=== PATIENT | male | born 1935 | race Caucasian/White ===

== ENCOUNTER 2016-05-07 10:46 | Outpatient (CLI) | payer MEDICARE | END 2016-05-07 10:47 | disposition home or self-care (01) | DX: L03.90 Cellulitis, unspecified (principal) ==

== ENCOUNTER 2016-08-16 10:53 | Outpatient (CLI) | payer MEDICARE | END 2016-08-16 10:54 | disposition home or self-care (01) | DX: N40.1 Benign prostatic hyperplasia with lower urinary tract symptoms (principal); L03.90 Cellulitis, unspecified; B74.9 Filariasis, unspecified; E78.5 Hyperlipidemia, unspecified; R73.01 Impaired fasting glucose; F10.20 Alcohol dependence, uncomplicated; J32.9 Chronic sinusitis, unspecified; G47.30 Sleep apnea, unspecified; I10 Essential (primary) hypertension ==

== ENCOUNTER 2016-11-18 23:19 | Outpatient (CLI) | payer MEDICARE | END 2016-11-18 23:20 | disposition short-term general hospital (02) | LOC: EMS 23:19 | PROVIDERS: ATTEND Surgery | DX: M79.89 Other specified soft tissue disorders (principal) | CPT/HCPCS: A0425; A0429 ==

== ENCOUNTER 2016-11-18 23:50 | Emergency (ER) | payer MEDICARE ==
--- NOTE | 2016-11-18 23:57 | ED Physician Documentation ---
PD HPI LOWER EXT INJURY - Stated complaint Stated Complaint: LOWER EXT SWELLING - Chief complaint Chief Complaint: Ext Problem - History obtained from History obtained from: Patient, Family, EMS - History of Present Illness PD HPI LOW EXT INJURY LOCATION: Both (has swelling of both legs, he says for the past several months as new process, with thickening of the skin of lower legs for the past couple of years. Has had increased swelling of the left leg the past week. he had been doing better with the edema with use of lymphatic compression machine a few hours daily, but his part-time aide has not been available the past couple of weeks.) Type of injury: Other (no injury per se, just has had increasing edema of legs, left particularly.) Where injury occurred: Home Timing - duration: Weeks Timing - details: Gradual onset, Still present Worsened by: Palpating Associated symptoms: Swelling (having difficulty walking due to the weight of his leg.). 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 Dahl about it and has lymphatic compression device at home to use 2-3 hours daily. Patient says he is getting referral to some specialist here at [facility], but he does not know whom (I wonder if is Wound Care clinic at [facility]).) Review of Systems Constitutional: denies: Fever, Chills Nose: denies: Rhinorrhea / runny nose, Congestion Throat: denies: Sore throat Cardiac: denies: Chest pain / pressure, Palpitations Respiratory: reports: Dyspnea (mild chronic). denies: Cough, Wheezing GI: denies: Nausea, Vomiting, Diarrhea : denies: Dysuria, Frequency Skin: reports: Lesions (couple years of thickened rough skin on lower legs/ ankles.) Neurologic: denies: Focal weakness, Numbness PD PAST MEDICAL HISTORY - Past Medical History Cardiovascular: Hypertension, High cholesterol Respiratory: None Neuro: None Endocrine/Autoimmune: None - Past Surgical History Past Surgical History: Yes - Present Medications Home Medications: Ambulatory Orders Medication Instructions Recorded Confirmed Aspirin [Aspir 81] 81 mg PO DAILY 11/22/13 04/03/14 Atorvastatin Calcium 80 mg PO DAILY 11/22/13 04/03/14 Ibuprofen 400 mg PO DAILY PRN 11/22/13 04/03/14 Lisinopril 40 mg PO DAILY 11/22/13 04/03/14 Tamsulosin HCl [Flomax] 0.4 mg PO DAILY 11/22/13 04/03/14 Cephalexin [Keflex] 500 mg PO QID #24 capsule 11/19/16 - Allergies Allergies/Adverse Reactions: Allergies Allergy/AdvReac Type Severity Reaction Status Date / Time No Known Drug Allergies Allergy Verified 11/22/13 09:11 - Living Situation Living Situation: reports: With family (he says granddaughter is nearby and has home school teacher for few hours daily, though the aide has been absent the past couple of weeks. ) Living Arrangement: reports: At home - Social History Does the pt smoke?: No Smoking Status: Never smoker Does the pt drink ETOH?: Yes - Immunizations Immunizations are current?: Yes PD ED PE NORMAL - Vitals Vital signs reviewed: Yes - General General: Alert and oriented X 3, Well developed/nourished - Neck Neck: Supple, no meningeal sign, No adenopathy - Cardiac Cardiac: RRR, No murmur - Respiratory Respiratory: Clear bilaterally - Abdomen Abdomen: Soft, Non tender - Derm Derm: Warm and dry, Other (thickened skin both legs below knees. The upper legs/ thighs are fairly normal caliber. Legs below knees have marked edema, left much more. It is pitting. Some redness of the skin anteriorly, but not really warm. ) - Extremities Extremities: No calf tenderness / cord, Other (pretty normal legs above the knees. Marked lymphedema and chronic skin thickening below knees, with left leg markedly edematous about 4 times normal (right about 2 times normal).) - Neuro Neuro: Alert and oriented X 3, No motor deficit, Normal speech Results - Vitals Vitals: Vital Signs - 24 hr 11/18/16 11/19/16 23:52 04:27 Temperature 36.6 C Heart Rate 90 83 Respiratory 18 18 Rate Blood Pressure 122/51 L 122/59 L O2 Saturation 98 99 Oxygen O2 Source Room air - Labs Labs: Laboratory Tests 11/19/16 11/19/16 11/19/16 01:08 01:08 01:08 WBC 15.9 H RBC 4.42 L Hgb 13.9 L Hct 41.2 L MCV 93.1 MCH 31.3 H MCHC 33.7 RDW 13.7 Plt Count 128 L MPV 8.6 Neut # 13.8 H Lymph # 1.1 L Calhoun # 1.0 Eos # 0.0 Baso # 0.0 Absolute Nucleated RBC 0.00 Nucleated RBCs 0.0 Sodium 134 L Potassium 4.0 Chloride 100 L Carbon Dioxide 24 Anion Gap 10.0 BUN 21 H Creatinine 1.0 Estimated GFR (MDRD) 72 L Glucose 143 H Calcium 9.0 Magnesium 1.8 Total Bilirubin 1.3 H AST 61 H ALT 49 Alkaline Phosphatase 50 B-Natriuretic Peptide 299 H Total Protein 7.2 Albumin 3.8 Globulin 3.4 Albumin/Globulin Ratio 1.1 Lipase 12 L - Rads (name of study) duplex U/S Radiology: Prelim report reviewed (no DVT) PD MEDICAL DECISION MAKING - ED course Complexity details: considered differential (lymphedema both legs, and consider some cellulitis left leg vs. inflammatory. Can use some skin lotion and would Rx Keflex for potential cellulitis. Mostly need some lymphatic compression. He had home school teacher who is not there to help recently. Lives with granddaughter, who might be able to help. Otherwise I would consider longer term wraps such as Unna Boot or something [facility] might do. He is okay with resting through the rest of the night (it was now about 2:30 am) and having consult with WC Nurse in AM, some wrappings. Then dispo is issue with him having harder time walking due to the large weight of left leg currently. SW may be able to help with other aides or such. ), d/w patient, d/w performance improvement consultant (will see if Nurses are able to do some lymphatic wrap (or can have ED Techs) with benefit of trying to initiate repeat visits to [facility] (would need to get Dr. Dahl to order). So will need to defer to morning for consults/offices to open. ) Departure - Departure Clinical Impression: Lymphedema of both lower extremities Cellulitis of lower extremity Qualifiers: Laterality: left Qualified Code(s): L03.116 - Cellulitis of left lower limb Condition: Stable Record reviewed to determine appropriate education?: Yes Instructions: ED Lymphedema, ED Infec Skin Cellulitis Follow-Up: Ton Dahl MD [Primary Care Provider] - Prescriptions: Cephalexin [Keflex] 500 mg PO QID #24 capsule Comments: Keep wraps on feet/lower legs until follow up. Elevate and rest legs often. Cephalexin as directed for possible skin infection. Follow up in 3-4 days for change of wrappings.
[2016-11-19 01:21] LABS: BASOPHILS % (AUTO) 0.3 %; EOSINOPHILS % (AUTO) 0.1 %; HCT - HEMATOCRIT 41.2 % (42.0-52.0); HGB - HEMOGLOBIN 13.9 g/dL (14.0-18.0); LYMPHOCYTES # (AUTO) 1.1 10^3/uL (1.5-3.5); LYMPHOCYTES % (AUTO) 6.9 %; MEAN CORPUSCULAR HEMOGLOBIN 31.3 pg (27.0-31.0); MEAN CORPUSCULAR HGB CONC 33.7 g/dL (32.0-36.0); MEAN CORPUSCULAR VOLUME 93.1 fL (80.0-94.0); MEAN PLATELET VOLUME 8.6 fL (7.4-11.4); MONOCYTES % (AUTO) 6.4 %; NEUTROPHILS # (AUTO) 13.8 10^3/uL (1.5-6.6); NEUTROPHILS % (AUTO) 86.3 %; RED BLOOD COUNT 4.42 10^6/uL (4.70-6.10); RED CELL DISTRIBUTION WIDTH 13.7 % (12.0-15.0); UNCORRECTED WHITE BLOOD COUNT 15.9 x10^3/uL; WHITE BLOOD COUNT 15.9 x10^3/uL (4.8-10.8)
[2016-11-19 01:25] LABS: ALBUMIN/GLOBULIN RATIO 1.1 (1.0-2.2); BILIRUBIN,TOTAL 1.3 mg/dL (0.2-1.0); MAGNESIUM 1.8 mg/dL (1.7-2.8); TOTAL PROTEIN 7.2 g/dL (6.7-8.2)
--- NOTE | 2016-11-19 02:10 | Ultrasound Preliminary Report ---
Exam: US Duplex Ext Veins Bilateral IMPRESSION: No evidence for deep venous thrombosis bilaterally where visualized. [facility] SITE ID: [id number]
--- NOTE | 2016-11-19 02:12 | Ultrasound Report ---
EXAM: BILATERAL LOWER EXTREMITY VENOUS ULTRASOUND EXAM DATE: 11/19/2016 01:57 AM. CLINICAL HISTORY: Edema legs for months, worse on left x days. COMPARISON: 03/20/2013. TECHNIQUE: Real-time sonographic vascular imaging was performed by the aluminum sheet cutter through the lower extremities utilizing both color-flow and Doppler spectral analysis. Multiple underwriting service representative static i mages were saved for review. FINDINGS: Right: Common Femoral Vein (CFV): Normal. CFV-GSV Junction: Normal. Profunda Femoral Vein (PFV): Normal. Femoral Vein (FV) Prox: Normal. Femoral Vein (FV) Mid: Normal. Femoral Vein (FV) Dist: Normal. Popliteal Vein: Normal. Calf veins not seen. Left: Common Femoral Vein (CFV): Normal. CFV-GSV Junction: Normal. Profunda Femoral Vein (PFV): Normal. Femoral Vein (FV) Prox: Normal. Femoral Vein (FV) Mid: Normal. Femoral Vein (FV) Dist: Not well seen without definite thrombus. Popliteal Vein: Not well seen without definite thrombus. Calf veins not seen. Other: Subcutaneous edema present. IMPRESSION: No evidence for deep venous thrombosis bilaterally where visualized. [facility] Referring Provider Line: [phone] SITE ID: [id number]
[2016-11-19] MEDS ORDERED: CEPHALEXIN 250 MG CAPSULE PO STA (03:06)
[2016-11-19] MEDS ORDERED: CEPHALEXIN 250 MG CAPSULE PO ONE (06:03)
[2016-11-19 10:11] VITALS: BP 107/68
[2016-11-19] MEDS ORDERED: ceFAZolin 1 GM in SODIUM CHLORIDE 0.9% MINIBAG 100 ML IV ONE (17:31)
[2016-11-19] MEDS ORDERED: cefTRIAXone 1 GM VIAL IVP STA (17:32)
[2016-11-19] MEDS ORDERED: cefTRIAXone 1 GM VIAL ONE (18:02)
== END 2016-11-19 19:26 | disposition home or self-care (01) ==
LOC: EDBD → EDUNIT# → SUPCPDRO 23:50 → ED 23:50
DX: L03.116 Cellulitis of left lower limb (principal); I89.0 Lymphedema, not elsewhere classified; I10 Essential (primary) hypertension; E78.00 Pure hypercholesterolemia, unspecified; Z79.82 Long term (current) use of aspirin
CPT/HCPCS: 36415; 80053; 83690; 83735; 83880; 85025; 93970; 96374; 99283; A9270

== ENCOUNTER 2017-01-30 08:50 | Outpatient (CLI) | payer MEDICARE ==
[2017-01-30 18:04] LABS: BILIRUBIN,URINE NEGATIVE (NEGATIVE); PH,URINE 6.5 PH (5.0-7.5)
[2017-01-30 18:09] LABS: UA CHARGE (STRIP ONLY) YES; UR CULTURE IF IND NOT INDICATED
[2017-01-30 18:15] LABS: ALBUMIN/GLOBULIN RATIO 1.4 (1.0-2.2); BILIRUBIN,TOTAL 0.6 mg/dL (0.2-1.0); BUN - BLOOD UREA NITROGEN 14 mg/dL (6-20); CALCIUM 9.4 mg/dL (8.5-10.3); CARBON DIOXIDE - CO2 26 mmol/L (21-32); CHLORIDE 101 mmol/L (101-111); CHOL/HDL RATIO 3.3 (<5.0); CHOLESTEROL 167 mg/dL; CREATININE 1.1 mg/dL (0.6-1.2); GFR - MDRD 64 (>89); GLUCOSE 122 mg/dL (70-100); HDL CHOLESTEROL 51 mg/dL; LDL/HDL RATIO 1.9 (<3.6); POTASSIUM 4.6 mmol/L (3.5-5.0); SODIUM 136 mmol/L (135-145); TOTAL PROTEIN 6.9 g/dL (6.7-8.2); TRIGLYCERIDES 98 mg/dL; VLDL CHOLESTEROL 20 mg/dL
== END 2017-01-30 08:51 | disposition home or self-care (01) ==
LOC: LAB.F 08:50
PROVIDERS: ATTEND Internal Medicine
DX: I25.9 Chronic ischemic heart disease, unspecified (principal); E78.5 Hyperlipidemia, unspecified; R73.01 Impaired fasting glucose; F10.20 Alcohol dependence, uncomplicated; I10 Essential (primary) hypertension; N40.1 Benign prostatic hyperplasia with lower urinary tract symptoms
CPT/HCPCS: 36415; 80053; 80061; 81001; 81003; 87086

== ENCOUNTER 2017-02-05 12:08 | Outpatient (CLI) | payer MEDICARE ==
--- NOTE | 2017-02-06 09:44 | CT Report ---
NONCONTRAST CHEST CT: 02/05/2017 COMPARISON: Noncontrast head CT 04/03/2014. INDICATION: Dementia. TECHNIQUE: Noncontrast 5 mm axial imaging of the head. FINDINGS: Large ventricular volume and prominent sulci, no appreciable change. 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 No evidence of intracranial mass. Prior right sylvian fissure hemorrhage appears to have resolved ov er the long interval. Bones appear grossly unremarkable. There is minimal chronic-appearing ethmoid and maxillary sinus disease. There are postoperative changes of the right globe. 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 IMPRESSION: 1. CHRONIC MICROVASCULAR ISCHEMIC CHANGES WITHOUT APPRECIABLE INTERVAL CHANGE. 2. INTERVAL RESOLUTION OF RIGHT SYLVIAN FISSURE HEMORRHAGE. 3. NO EVIDENCE OF ACUTE INTRACRANIAL PROCESS. In accordance with CT protocol optimization, one or more of the following dose reduction techniques w ere utilized for this exam: automated exposure control, adjustment of mA and/or KV based on patient size, or use of iterative reconstructive technique. JOB #: [id number] EXT JOB #:[id number]
== END 2017-02-05 12:09 | disposition home or self-care (01) ==
LOC: DI 12:08
PROVIDERS: ATTEND Internal Medicine
DX: R90.89 Other abnormal findings on diagnostic imaging of central nervous system (principal)
CPT/HCPCS: 70450

== ENCOUNTER 2017-03-05 16:18 | Outpatient (CLI) | payer MEDICARE ==
[2017-03-06 11:19] LABS: THYROID STIMULATING HORMONE 2.43 uIU/mL (0.34-5.60)
== END 2017-03-05 16:19 | disposition home or self-care (01) ==
LOC: LAB.F 16:18
PROVIDERS: ATTEND Internal Medicine
DX: F03.90 Unspecified dementia, unspecified severity, without behavioral disturbance, psychotic disturbance, mood disturbance, and anxiety (principal)
CPT/HCPCS: 36415; 82607; 84443

== ENCOUNTER 2017-04-26 13:29 | Outpatient (CLI) | payer MEDICARE | END 2017-04-26 13:30 | disposition critical access hospital (66) | LOC: EMS 13:29 | PROVIDERS: ATTEND Surgery | DX: R07.9 Chest pain, unspecified (principal) | CPT/HCPCS: A0425; A0429 ==

== ENCOUNTER 2017-05-01 14:55 | Outpatient (CLI) | payer MEDICARE ==
[2017-05-01 17:56] LABS: BASOPHILS # (AUTO) 0.1 10^3/uL (0.0-0.1); BASOPHILS % (AUTO) 2.2 %; EOSINOPHILS # (AUTO) 0.2 10^3/uL (0.0-0.7); EOSINOPHILS % (AUTO) 3.5 %; LYMPHOCYTES # (AUTO) 1.7 10^3/uL (1.5-3.5); LYMPHOCYTES % (AUTO) 30.4 %; MEAN CORPUSCULAR HEMOGLOBIN 30.7 pg (27.0-31.0); MEAN CORPUSCULAR HGB CONC 33.4 g/dL (32.0-36.0); MEAN CORPUSCULAR VOLUME 91.9 fL (80.0-94.0); MEAN PLATELET VOLUME 8.9 fL (7.4-11.4); MONOCYTES # (AUTO) 0.6 10^3/uL (0.0-1.0); MONOCYTES % (AUTO) 10.2 %; NEUTROPHILS % (AUTO) 53.7 %; PLT - PLATELET COUNT 165 10^3/uL (130-450); RED BLOOD COUNT 4.56 10^6/uL (4.70-6.10); RED CELL DISTRIBUTION WIDTH 14.2 % (12.0-15.0); WHITE BLOOD COUNT 5.6 x10^3/uL (4.8-10.8)
== END 2017-05-01 14:56 | disposition home or self-care (01) ==
LOC: LAB.F 14:55
PROVIDERS: ATTEND Internal Medicine
DX: E53.8 Deficiency of other specified B group vitamins (principal)
CPT/HCPCS: 36415; 82607; 85025

== ENCOUNTER 2018-01-22 13:43 | Outpatient (CLI) | payer MEDICARE ==
[2018-01-22 17:51] LABS: BASOPHILS # (AUTO) 0.1 10^3/uL (0.0-0.1); BASOPHILS % (AUTO) 1.2 %; EOSINOPHILS # (AUTO) 0.2 10^3/uL (0.0-0.7); EOSINOPHILS % (AUTO) 4.5 %; HGB - HEMOGLOBIN 13.2 g/dL (14.0-18.0); LYMPHOCYTES # (AUTO) 1.8 10^3/uL (1.5-3.5); MEAN CORPUSCULAR HEMOGLOBIN 31.7 pg (27.0-31.0); MEAN CORPUSCULAR HGB CONC 34.1 g/dL (32.0-36.0); MEAN CORPUSCULAR VOLUME 92.8 fL (80.0-94.0); MEAN PLATELET VOLUME 9.1 fL (7.4-11.4); MONOCYTES # (AUTO) 0.5 10^3/uL (0.0-1.0); NEUTROPHILS # (AUTO) 2.7 10^3/uL (1.5-6.6); NEUTROPHILS % (AUTO) 50.3 %; PLT - PLATELET COUNT 136 10^3/uL (130-450); RED BLOOD COUNT 4.17 10^6/uL (4.70-6.10); RED CELL DISTRIBUTION WIDTH 14.2 % (12.0-15.0); WHITE BLOOD COUNT 5.4 x10^3/uL (4.8-10.8)
[2018-01-22 18:02] LABS: ALBUMIN 3.7 g/dL (3.2-5.5); ALBUMIN/GLOBULIN RATIO 1.4 (1.0-2.2); ALKALINE PHOSPHATASE 54 IU/L (42-121); ALT ALANINE AMINOTRANSFERASE 14 IU/L (10-60); AST ASPARTATE AMINOTRANSFERASE 18 IU/L (10-42); BILIRUBIN,TOTAL 0.9 mg/dL (0.2-1.0); BUN - BLOOD UREA NITROGEN 16 mg/dL (6-20); CALCIUM 8.7 mg/dL (8.5-10.3); CARBON DIOXIDE - CO2 27 mmol/L (21-32); CHLORIDE 103 mmol/L (101-111); CHOL/HDL RATIO 2.7 (<5.0); CHOLESTEROL 140 mg/dL; CREATININE 0.9 mg/dL (0.6-1.2); GFR - MDRD 81 (>89); GLUCOSE 109 mg/dL (70-100); HDL CHOLESTEROL 51 mg/dL; LDL CHOLESTEROL,CALCULATED 72 mg/dL; LDL/HDL RATIO 1.4 (<3.6); SODIUM 136 mmol/L (135-145); TOTAL PROTEIN 6.4 g/dL (6.7-8.2); VLDL CHOLESTEROL 17 mg/dL
== END 2018-01-22 13:44 | disposition home or self-care (01) ==
LOC: LAB.F 13:43
PROVIDERS: ATTEND Internal Medicine
DX: Z00.00 Encounter for general adult medical examination without abnormal findings (principal); N40.1 Benign prostatic hyperplasia with lower urinary tract symptoms; I25.9 Chronic ischemic heart disease, unspecified; F03.90 Unspecified dementia, unspecified severity, without behavioral disturbance, psychotic disturbance, mood disturbance, and anxiety; B74.9 Filariasis, unspecified; E78.5 Hyperlipidemia, unspecified; R73.01 Impaired fasting glucose; F10.20 Alcohol dependence, uncomplicated; I10 Essential (primary) hypertension; E53.8 Deficiency of other specified B group vitamins
CPT/HCPCS: 36415; 80053; 80061; 82607; 83721; 85025

== ENCOUNTER 2019-01-08 11:52 | Outpatient (CLI) | payer MEDICARE ==
[2019-01-08 17:12] LABS: BASOPHILS # (AUTO) 0.1 10^3/uL (0.0-0.1); BASOPHILS % (AUTO) 1.3 %; EOSINOPHILS # (AUTO) 0.3 10^3/uL (0.0-0.7); EOSINOPHILS % (AUTO) 4.8 %; HGB - HEMOGLOBIN 13.4 g/dL (14.0-18.0); LYMPHOCYTES # (AUTO) 2.1 10^3/uL (1.5-3.5); LYMPHOCYTES % (AUTO) 34.5 %; MEAN CORPUSCULAR HGB CONC 31.6 g/dL (32.0-36.0); MEAN CORPUSCULAR VOLUME 94.9 fL (80.0-94.0); MEAN PLATELET VOLUME 10.8 fL (7.4-11.4); MONOCYTES # (AUTO) 0.4 10^3/uL (0.0-1.0); MONOCYTES % (AUTO) 7.2 %; NEUTROPHILS # (AUTO) 3.2 10^3/uL (1.5-6.6); NEUTROPHILS % (AUTO) 51.9 %; PLT - PLATELET COUNT 149 10^3/uL (130-450); RED BLOOD COUNT 4.47 10^6/uL (4.70-6.10); RED CELL DISTRIBUTION WIDTH 13.6 % (12.0-15.0); WHITE BLOOD COUNT 6.1 x10^3/uL (4.8-10.8)
[2019-01-08 17:28] LABS: ALBUMIN/GLOBULIN RATIO 1.3 (1.0-2.2); ALKALINE PHOSPHATASE 49 IU/L (42-121); ALT ALANINE AMINOTRANSFERASE 15 IU/L (10-60); AST ASPARTATE AMINOTRANSFERASE 17 IU/L (10-42); BILIRUBIN,TOTAL 1.3 mg/dL (0.2-1.0); BUN - BLOOD UREA NITROGEN 20 mg/dL (6-20); CALCIUM 8.9 mg/dL (8.5-10.3); CARBON DIOXIDE - CO2 27 mmol/L (21-32); CHLORIDE 103 mmol/L (101-111); CHOL/HDL RATIO 3.3 (<5.0); CHOLESTEROL 156 mg/dL; CREATININE 1.1 mg/dL (0.6-1.2); GFR - MDRD 64 (>89); GLUCOSE 113 mg/dL (70-100); HDL CHOLESTEROL 47 mg/dL; LDL CHOLESTEROL,CALCULATED 87 mg/dL; LDL/HDL RATIO 1.9 (<3.6); SODIUM 138 mmol/L (135-145); VLDL CHOLESTEROL 22 mg/dL
== END 2019-01-08 11:53 | disposition home or self-care (01) ==
LOC: LAB.S 11:52
PROVIDERS: ATTEND Internal Medicine
DX: N40.1 Benign prostatic hyperplasia with lower urinary tract symptoms (principal); I25.9 Chronic ischemic heart disease, unspecified; F03.90 Unspecified dementia, unspecified severity, without behavioral disturbance, psychotic disturbance, mood disturbance, and anxiety; B74.9 Filariasis, unspecified; E78.5 Hyperlipidemia, unspecified; R73.01 Impaired fasting glucose; R41.3 Other amnesia; F10.20 Alcohol dependence, uncomplicated; I10 Essential (primary) hypertension; E53.8 Deficiency of other specified B group vitamins
CPT/HCPCS: 36415; 80053; 80061; 82607; 83721; 85025

== ENCOUNTER 2019-03-07 09:25 | Outpatient (CLI) | payer MEDICARE | END 2019-03-07 09:26 | disposition critical access hospital (66) | LOC: EMS 09:25 | PROVIDERS: ATTEND Surgery | DX: R06.02 Shortness of breath (principal) | CPT/HCPCS: A0425; A0429 ==

== ENCOUNTER 2019-03-07 09:57 | Inpatient (IN) | payer MEDICARE ==
[2019-03-07] MEDS ORDERED: FUROSEMIDE 40 MG/4 ML VIAL IVP STA (10:36)
[2019-03-07 10:41] LABS: BASOPHILS # (AUTO) 0.1 10^3/uL (0.0-0.1); BASOPHILS % (AUTO) 0.9 %; EOSINOPHILS # (AUTO) 0.2 10^3/uL (0.0-0.7); EOSINOPHILS % (AUTO) 4.4 %; HGB - HEMOGLOBIN 12.9 g/dL (14.0-18.0); LYMPHOCYTES # (AUTO) 1.5 10^3/uL (1.5-3.5); LYMPHOCYTES % (AUTO) 27.8 %; MEAN CORPUSCULAR HEMOGLOBIN 30.4 pg (27.0-31.0); MEAN CORPUSCULAR HGB CONC 31.2 g/dL (32.0-36.0); MEAN CORPUSCULAR VOLUME 97.6 fL (80.0-94.0); MEAN PLATELET VOLUME 10.1 fL (7.4-11.4); MONOCYTES # (AUTO) 0.5 10^3/uL (0.0-1.0); MONOCYTES % (AUTO) 9.6 %; NEUTROPHILS # (AUTO) 3.1 10^3/uL (1.5-6.6); NEUTROPHILS % (AUTO) 56.9 %; PLT - PLATELET COUNT 165 10^3/uL (130-450); RED BLOOD COUNT 4.24 10^6/uL (4.70-6.10); RED CELL DISTRIBUTION WIDTH 13.2 % (12.0-15.0); WHITE BLOOD COUNT 5.4 x10^3/uL (4.8-10.8)
--- NOTE | 2019-03-07 10:43 | ED Physician Documentation ---
PD HPI DYSPNEA - Stated complaint Stated Complaint: DIFFICULTY BREATHING - Chief complaint Chief Complaint: Resp - History obtained from History obtained from: Patient, EMS - History of Present Illness Timing - onset: How many weeks ago (2-3) Timing - onset during: Rest Timing - duration: Weeks (2-3) Timing - details: Gradual onset, Still present Improved by: O2, Inhaler/neb, Rest, Sitting up Worsened by: Exertion, Laying flat, Coughing Associated symptoms: Cough, Wheezing, Bilateral edema Similar symptoms before: Has not had sx before Recently seen: Not recently seen - Additional information Additional information: 83-year-old male with a history of bilateral lymphedema has developed increasing exertional dyspnea over the past 3 weeks has reduced his activity and he is having orthopnea and PND. He has a history of alcoholism and indicates he has been drinking about 2 vodka drinks per day provided by his pet care associate and he has not had alcohol in 3 days. Review of Systems Constitutional: reports: Fatigue. denies: Fever Eyes: denies: Decreased vision Ears: denies: Ear pain Nose: denies: Rhinorrhea / runny nose, Congestion Throat: denies: Sore throat Cardiac: reports: Pedal edema. denies: Chest pain / pressure, Palpitations Respiratory: reports: Dyspnea, Wheezing GI: denies: Nausea, Vomiting : denies: Dysuria, Frequency PD PAST MEDICAL HISTORY - Past Medical History Cardiovascular: Hypertension, High cholesterol Respiratory: None Endocrine/Autoimmune: None GI: None : None HEENT: None Psych: None Musculoskeletal: None Derm: None - Past Surgical History Past Surgical History: Yes - Present Medications Home Medications: Ambulatory Orders Medication Instructions Recorded Confirmed Aspirin [Aspir 81] 81 mg PO DAILY 11/22/13 04/26/17 Atorvastatin Calcium 80 mg PO DAILY 11/22/13 04/26/17 Lisinopril 40 mg PO DAILY 11/22/13 04/26/17 Tamsulosin HCl [Flomax] 0.4 mg PO DAILY 11/22/13 04/26/17 Finasteride [Propecia] 1 mg PO DAILY 04/26/17 04/26/17 Metoprolol Tartrate 25 mg PO DAILY 04/26/17 04/26/17 - Allergies Allergies/Adverse Reactions: Allergies Allergy/AdvReac Type Severity Reaction Status Date / Time No Known Drug Allergies Allergy Verified 08/10/14 09:11 - Social History Does the pt smoke?: No Smoking Status: Never smoker Does the pt drink ETOH?: Yes Does the pt have substance abuse?: No - Immunizations Immunizations are current?: Yes PD ED PE NORMAL - Vitals Vital signs reviewed: Yes (tachy tachypneic and hypertensive ) - General General: Alert and oriented X 3, Well developed/nourished - HEENT HEENT: Atraumatic, PERRL, EOMI - Neck Neck: Supple, no meningeal sign - Cardiac Cardiac: No murmur, Other (tachy with distant sounds) - Respiratory Respiratory: Other (tachypneic with markedly diminished breath sounds on the right. ) - Abdomen Abdomen: Soft, Non tender - Derm Derm: Normal color, Warm and dry - Extremities Extremities: Other (There is bilateral lymphedema with deformation of the feet. The edems is pitting to the buttocks. There is the hyperemia of chronic venous stasis present. ) - Neuro Neuro: Alert and oriented X 3, picture booker 2-12 intact, No motor deficit, No sensory deficit, Normal speech Eye Opening: Spontaneous Motor: Obeys Commands Verbal: Oriented GCS Score: 15 - Psych Psych: Normal mood, Normal affect Results - Vitals Vitals: Vital Signs - 24 hr 03/07/19 03/07/19 03/07/19 10:06 10:57 11:13 Temperature 36.3 C L Heart Rate 108 H 102 H 109 H Respiratory 23 22 20 Rate Blood Pressure 131/75 H 151/91 H 120/88 H O2 Saturation 97 95 97 03/07/19 03/07/19 03/07/19 11:46 13:41 14:02 Temperature Heart Rate 103 H 117 H 121 H Respiratory 18 22 22 Rate Blood Pressure 117/73 136/79 H 145/91 H O2 Saturation 94 96 93 03/07/19 03/07/19 03/07/19 15:00 15:10 15:15 Temperature Heart Rate 76 69 72 Respiratory 20 20 18 Rate Blood Pressure 101/83 H 105/79 112/85 H O2 Saturation 95 93 Oxygen O2 Source Room air - EKG (time done) 1022 Rate: Rate (enter#) (123) Rhythm: Atrial fibrillation Intervals: LBBB Compare to prior EKG: Changed from prior EKG (SPT 04-26-2017 rate has increased and rhythm has changed to afib. ) Computer interpretation: Agree with computer - Labs Labs: Laboratory Tests 03/07/19 03/07/19 03/07/19 10:20 10:20 10:20 WBC 5.4 RBC 4.24 L Hgb 12.9 L Hct 41.4 L MCV 97.6 H MCH 30.4 MCHC 31.2 L RDW 13.2 Plt Count 165 MPV 10.1 Neut # (Auto) 3.1 Lymph # (Auto) 1.5 Mccormick # (Auto) 0.5 Eos # (Auto) 0.2 Baso # (Auto) 0.1 Absolute Nucleated RBC 0.00 Nucleated RBC % 0.0 Sodium 141 Potassium 4.5 Chloride 106 Carbon Dioxide 26 Anion Gap 9.0 BUN 30 H Creatinine 1.0 Estimated GFR (MDRD) 71 L Glucose 136 H Calcium 9.1 Total Bilirubin 0.6 AST 21 ALT 19 Alkaline Phosphatase 66 B-Natriuretic Peptide 225 H Total Protein 7.1 Albumin 3.9 Globulin 3.2 Albumin/Globulin Ratio 1.2 Lipase 25 Urine Color Urine Clarity Urine pH Ur Specific [place] Urine Protein Urine Glucose (UA) Urine Ketones Urine Occult Blood Urine Nitrite Urine Bilirubin Urine Urobilinogen Ur Leukocyte Esterase Ur Microscopic Review Urine Culture Comments Ethyl Alcohol 03/07/19 03/07/19 10:20 11:40 WBC RBC Hgb Hct MCV MCH MCHC RDW Plt Count MPV Neut # (Auto) Lymph # (Auto) Mccormick # (Auto) Eos # (Auto) Baso # (Auto) Absolute Nucleated RBC Nucleated RBC % Sodium Potassium Chloride Carbon Dioxide Anion Gap BUN Creatinine Estimated GFR (MDRD) Glucose Calcium Total Bilirubin AST ALT Alkaline Phosphatase B-Natriuretic Peptide Total Protein Albumin Globulin Albumin/Globulin Ratio Lipase Urine Color YELLOW Urine Clarity CLEAR Urine pH 5.5 Ur Specific [place] 1.015 Urine Protein NEGATIVE Urine Glucose (UA) NEGATIVE Urine Ketones NEGATIVE Urine Occult Blood TRACE-INTA Urine Nitrite NEGATIVE Urine Bilirubin NEGATIVE Urine Urobilinogen 0.2 (NORMAL) Ur Leukocyte Esterase NEGATIVE Ur Microscopic Review NOT INDICATED Urine Culture Comments NOT INDICATED Ethyl Alcohol 8.0 - Rads (name of study) chest Radiology: Prelim report reviewed (Impression: 1. Dense bibasilar opacity which may represent atelectasis, infiltrate/consolidation clots, pleural effusion, or a combination. 2. Increased bibasilar interstitial markings are suggestive of fluid overload.), EMP read indepedently, See rad report Procedures - Bedside sono Bedside sono by EMP: With use of bedside ultrasound the right lung is imaged there is pleural fluid up to the scapula. - IVC sono (time) 1030 Bedside IVC sono: IVC measures (cm) (2.42), IVC collapsed c insp (cm) (2.42), High CVP, Fluid overload PD MEDICAL DECISION MAKING - ED course Complexity details: reviewed old records, reviewed results, re-evaluated patient, considered differential, d/w patient ED course: 83-year-old male with a history of COPD and lymphedema has developed increase in his lymphedema and exertional dyspnea and orthopnea over the past 2 to 3 weeks. He is a very vague historian and minimizes his symptoms. Here today in the emergency department he has markedly diminished breath sounds on the right side and the appearance of a pleural effusion by bedside ultrasound chest x-ray demonstrates what appears to be an infiltrate in the right base as well. The patient denies fever or cough he has normal white blood cell count he has a marked area of his lung that is affected by this. He has room air hypoxia if he talks for more than 1 minute. He has a history of orthopnea and his IVC is plethoric and enlarged at 3.6 cm. On arrival to the emergency department he is administered intravenous Lasix and eventually he is administered Rocephin as well.I am unable to determine by history or specific findings on exam if there is a component of pneumonia associated with this. Today he is found to be in atrial fibrillation and this appears new for the patient. He has not had episode of congestive heart failure previously and he looks like he has this now. His heart rate increases in the ED and he is administered IV diltiazem 20mg with prompt improvement in the heart rate. At the conclusion of treatment in the ED the patient is improved with his breathing but continues to have some room air hypoxia with any exertion. Departure - Departure Disposition: [facility] DC/Xfer Clinical Impression: Lymphedema of both lower extremities Pneumonia Qualifiers: Pneumonia type: due to unspecified organism Laterality: right Lung location: lower lobe of lung Qualified Code(s): J18.9 - Pneumonia, unspecified organism Congestive heart failure Qualifiers: Heart failure type: unspecified Heart failure chronicity: acute on chronic Qualified Code(s): I50.9 - Heart failure, unspecified Atrial fibrillation Qualifiers: Atrial fibrillation type: unspecified Qualified Code(s): I48.91 - Unspecified atrial fibrillation
[2019-03-07 10:50] LABS: ALBUMIN 3.9 g/dL (3.2-5.5); ALBUMIN/GLOBULIN RATIO 1.2 (1.0-2.2); BILIRUBIN,TOTAL 0.6 mg/dL (0.2-1.0); CALCIUM 9.1 mg/dL (8.5-10.3); TOTAL PROTEIN 7.1 g/dL (6.7-8.2)
--- NOTE | 2019-03-07 11:11 | XRAY Report ---
Reason: chest pain Procedure Date: 03/07/2019 Accession Number: [id number] / [id number] Procedure: XR - Chest 1 View X-Ray CPT Code: 95372 Final Report FULL RESULT: EXAM: CHEST RADIOGRAPHY EXAM DATE: 03/07/2019 10:46 AM. CLINICAL HISTORY: Chest pain. COMPARISON: CHEST 1 VIEW 04/26/2017 2:17 PM. TECHNIQUE: 1 view. FINDINGS: Lungs/Pleura: There is dense opacity in both lung bases, right greater than left. There are increased interstitial opacities bilaterally. No pneumothorax. Mediastinum: The cardiac silhouette is largely obscured. The mediastinal silhouette is within normal limits. Other: None. IMPRESSION: 1. Dense bibasilar opacity which may represent atelectasis, infiltrate/consolidation, pleural fluid, or a combination. 2. Increased bilateral interstitial markings are suggestive of fluid overload. [facility]
[2019-03-07 11:55] LABS: BILIRUBIN,URINE NEGATIVE (NEGATIVE); GLUCOSE, URINE (UA) NEGATIVE (NEGATIVE); KETONES,URINE (UA) NEGATIVE (NEGATIVE); LEUKOCYTE ESTERASE, URINE NEGATIVE (NEGATIVE); NITRITE,URINE NEGATIVE (NEGATIVE); OCCULT BLOOD,URINE TRACE-INTA (NEGATIVE); PH,URINE 5.5 PH (5.0-7.5); PROTEIN,URINE NEGATIVE (NEGATIVE); UROBILINOGEN,URINE 0.2 (NORMAL) E.U./dL (NORMAL)
[2019-03-07 11:56] LABS: CLARITY,URINE CLEAR (CLEAR)
[2019-03-07] MEDS ORDERED: cefTRIAXone 1 GM VIAL IVP STA (12:05)
[2019-03-07] MEDS ORDERED: diltiaZEM INJ 5 MG/ML VIAL IVP STA (14:37)
[2019-03-07] MEDS ORDERED: ACETAMINOPHEN 325 MG TABLET PO PRN (15:27)
[2019-03-07] MEDS ORDERED: PROCHLORPERAZINE 10 MG/2 ML VIAL IVP PRN (15:27)
[2019-03-07] MEDS ORDERED: LIDOCAINE 2% URO-JET 5 ML SYRINGE UR SCH (15:32)
[2019-03-07 15:48] LABS: INR 1.1 (0.8-1.2); PT - PROTHROMBIN TIME 12.9 secs (9.9-12.6)
[2019-03-07] MEDS ORDERED: LIQUOR 50 ML BOTTLE PO SCH (18:00)
[2019-03-07] MEDS: SODIUM CHLORIDE FLUSH 0.9% 10 ML SYRINGE IVP SCH (18:23)
--- NOTE | 2019-03-07 19:07 | HISTORY & PHYSICAL EXAMINATION ---
Chief Complaint - Chief Complaint Chief Complaint: Dyspnea History of Present Illness - Admitted From Admitted From:: Home - History Obtained From Records Reviewed: Yes History obtained from: Patient, EMR, ER Physician Exam Limitations: Patient is a poor historian and does not answer questions directly. He is - History of Present Illness HPI Comment/Other: This is a 83-year-old gentleman with a past medical history significant for lymphedema of the bilateral lower extremities, Coronary artery disease with stenting in the past, History of subarachnoid hemorrhage who presents today complaining of dyspnea that began last night. He reports he woke up in the middle the night feeling short of breath. He endorses orthopnea, worsening lower extremity edema. He denies a cough, fevers, chills. When asked as to how long the symptoms have been going on for, he does not answer clearly and reports that he is really only felt short of breath for just this past night. When asked about his lymphedema and when this was diagnosed, he was unable to state the date and began to talk about his latest 's . He does state that his legs are more swollen than usual and that his baseline weight is around 170 to 180 pounds. He reports no chest pain. He is unable to state when his stenting was for his coronary artery disease. When asked if he has had heart failure or atrial fibrillation in the past, he once again goes on a tangent and does not answer the question directly despite being asked multiple times. A graciela [facility] ER visit reported that he was transferred to [facility] for subarachnoid hemorrhage. When asked about this, the patient denies a history of brain hemorrhage. In the emergency department, he is found to be in age fibrillation with rates in the 120s, tachypneic, and hypoxic with O2 sats of 88% on room air. A chest x- ray was suggestive of pulmonary vascular congestion and a right-sided pleural effusion. His labs were relatively unremarkable except for a BNP of 225. His troponin was negative. He was given a dose of Lasix IV in the emergency room as well as ceftriaxone IV for possible pneumonia. Is also given diltiazem 20 mg IV for his elevated heart rate. Given his dyspnea and hypoxia, medicine was consulted for admission. I was able to discuss goals of care with the patient and he would like to be a full code. History - Past Medical History Cardiovascular: reports: Hypertension, High cholesterol Respiratory: reports: None Endocrine/Autoimmune: reports: None GI: reports: None : reports: Benign prostate hypertrophy HEENT: reports: None Psych: reports: None Musculoskeletal: reports: None Derm: reports: None - Family & Social History Family History Comment/Other: He reports his father at the age of 63 because of a myocardial infarction. He believes that he may have had hypertension. 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 He has been 3 times. He currently lives at home alone and has a caregiver. He denies ever smoking. He does drink alcohol and reports consuming 2 drinks a night. He drinks approximately 3-4 nights a week. He reports his last drink was 2 days ago. - Substance History Use: Uses substance without health or social issues: Alcohol Meds/Allgy - Home Medications Home Medications: Ambulatory Orders Medication Instructions Recorded Confirmed Aspirin [Aspir 81] 81 mg PO DAILY 11/22/13 03/07/19 Atorvastatin Calcium 80 mg PO DAILY 11/22/13 03/07/19 Lisinopril 40 mg PO DAILY 11/22/13 03/07/19 Tamsulosin HCl [Flomax] 0.4 mg PO DAILY 11/22/13 03/07/19 Finasteride [Propecia] 1 mg PO DAILY 04/26/17 03/07/19 Metoprolol Succinate 50 mg PO DAILY 03/07/19 03/07/19 - Allergies Allergies/Adverse Reactions: Allergies Allergy/AdvReac Type Severity Reaction Status Date / Time No Known Drug Allergies Allergy Verified 11/22/13 09:11 Review of Systems - Constitutional Constitutional: denies: Fever, Chills - Cardiovascular Cariovascular: reports: Exertional dyspnea, Decr. exercise tolerance. denies: Chest pain - Respiratory Respiratory: reports: Orthopnea, SOB at rest, SOB with exertion. denies: Cough - Gastrointestinal Gastrointestinal: denies: Abdominal pain - All Other Systems All Other Systems: reports: Other Prior Level of Functionality: He lives at home alone but does have a caregiver. He ambulates at baseline with a cane. Exam - Vital Signs Reviewed Vital Signs: Yes Vital Signs: Vital Signs x48h Temp Pulse Pulse Resp BP BP Pulse Ox 03/07/19 16:00 36.0 C L 99 62 20 130/83 H 119/90 H 97 03/07/19 15:45 72 18 116/72 03/07/19 15:30 85 18 132/74 H 94 03/07/19 15:15 72 18 112/85 H 03/07/19 15:10 69 20 105/79 93 03/07/19 15:00 76 20 101/83 H 95 03/07/19 14:02 121 H 22 145/91 H 93 03/07/19 13:41 117 H 22 136/79 H 96 03/07/19 11:46 103 H 18 117/73 94 03/07/19 11:13 109 H 20 120/88 H 97 - Physical Exam General Appearance: positive: No acute distress, Alert Eyes Bilateral: positive: Normal inspection ENT: positive: ENT inspection nml Neck: positive: Nml inspection Respiratory: positive: Rales, Other (He has diminished breath sounds in the bases. Rales present.). negative: No respiratory distress (He does appear quite tachypneic in respiratory distress when speaking) Cardiovascular: positive: No murmur, Irregularly irregular, Tachycardia. negative: Bradycardia, Systolic murmur, Diastolic murmur Abdomen: positive: Non-tender, Other (Umbilical hernia noted.). negative: No distention (Abdomen is distended.), Tenderness Skin: positive: Other (He has chronic venous stasis changes over his bilateral lower extremities.) Extremities: positive: Pedal edema (He has significant pitting edema in his lower extremities up to his upper thighs.) Neurologic/Psychiatric: positive: Oriented x3, Other (He is able to move all 4 extremities and has no focal deficit on exam.). negative: Disoriented to person, Disoriented to place, Disoriented to time Conclusion/Plan - Problem List (1) Dyspnea Conclusion/Plan: His dyspnea appears to be secondary to heart failure given his x-ray findings. He does have pulmonary vascular congestion in the right pleural effusion. Although his BNP is only 200s, he does have significant pitting edema. Do not suspect pneumonia at this time given he has no cough and no white count or fever. Will diurese him with Lasix IV twice daily. Check daily weights. Check BMP in the morning. Obtain echocardiogram. Qualifiers: Dyspnea type: orthopnea Qualified Code(s): R06.01 - Orthopnea (2) Pulmonary vascular congestion Conclusion/Plan: X-ray findings are concerning for heart failure and less likely pneumonia. Will diuresis with Lasix IV twice daily and obtain an echocardiogram to evaluate for heart failure. (3) Atrial fibrillation Conclusion/Plan: He is unable to state if this is a new diagnosis or not. He did present with rapid ventricular response and rates in the 120s. He is already on metoprolol at home which we will continue and increase the dose as tolerated. Troponin has been negative. We will check a TSH and echocardiogram. Will hold off on initiating anticoagulation until we obtain further history regarding his prior subarachnoid hemorrhage. Qualifiers: Atrial fibrillation type: unspecified Qualified Code(s): I48.91 - Unspecified atrial fibrillation (4) Lymphedema of both lower extremities Conclusion/Plan: He is unable to tell me when this was first diagnosed but he does have significant edema in his lower extremities. Given the fact that edema is pitting, the concern is for heart failure in addition to lymphedema. He also has chronic skin changes suggestive of chronic venous stasis. Will elevate his legs and continue to diurese him with IV Lasix. No SCD's given the extent of edema. Will use heparin SC for DVT prophylaxis. (5) Alcohol use disorder Conclusion/Plan: He denies going to withdrawal in the past and reports his last drink was 2 days ago he does not drink on a daily basis. We will start thiamine p.o. and monitor him for alcohol withdrawal (6) BPH (benign prostatic hyperplasia) Conclusion/Plan: He is on finasteride and Flomax which we will continue. - Lab Results Lab results reviewed: Yes Fish Bones: 03/07/19 10:20 03/07/19 10:20 - Diagnostic Imaging Results Diagnostic Imaging Results: positive: Final report reviewed - EKG Results EKG Interpreted Independently: Yes EKG Comparison: Changed from prior EKG EKG Findings: EKG revealed atrial fibrillation with rapid ventricular response and rates in the 120's. There is a LBBB which was present on prior EKG. Core Measures - Anticipated LOS I expect patient to be DC'd or transferred within 96 hours.: Yes - Issues Hospital Issues and Management Plan: Suspected new heart failure requiring IV diuresis. Atrial fibrillation w/ RVR requiring rate control. - DVT/VTE - Prophylaxis VTE/DVT Device ordered at admit?: Yes VTE/DVT Prophylaxis med ordered at admit?: Yes
[2019-03-07] MEDS: THIAMINE 100 MG TABLET PO SCH (20:25)
[2019-03-07] MEDS ORDERED: METOPROLOL SUCCINATE 25 MG TABLET PO SCH (21:00)
[2019-03-07] MEDS: FAMOTIDINE 20 MG TABLET PO SCH (21:21)
[2019-03-07] MEDS: HEPARIN 5,000 UNIT/ML VIAL SUBQ SCH (21:22)
[2019-03-08] MEDS: NYSTATIN POWDER 15 GM TOP SCH ×3 (00:38→21:28)
[2019-03-08] MEDS: SODIUM CHLORIDE FLUSH 0.9% 10 ML SYRINGE IVP SCH ×3 (01:32→17:08)
[2019-03-08] MEDS ORDERED: LIDOCAINE 2% URO-JET 5 ML SYRINGE UR ONE (04:53)
[2019-03-08] MEDS: FUROSEMIDE 20 MG/2 ML VIAL IVP SCH ×2 (05:36→14:58)
[2019-03-08] MEDS: SODIUM CHLORIDE FLUSH 0.9% 10 ML SYRINGE IVP PRN ×2 (05:37→14:59)
[2019-03-08 06:22] LABS: BASOPHILS # (AUTO) 0.1 10^3/uL (0.0-0.1); BASOPHILS % (AUTO) 0.8 %; EOSINOPHILS # (AUTO) 0.2 10^3/uL (0.0-0.7); EOSINOPHILS % (AUTO) 2.1 %; HGB - HEMOGLOBIN 12.9 g/dL (14.0-18.0); LYMPHOCYTES # (AUTO) 1.1 10^3/uL (1.5-3.5); LYMPHOCYTES % (AUTO) 14.6 %; MEAN CORPUSCULAR HEMOGLOBIN 30.4 pg (27.0-31.0); MEAN CORPUSCULAR HGB CONC 31.5 g/dL (32.0-36.0); MEAN CORPUSCULAR VOLUME 96.7 fL (80.0-94.0); MEAN PLATELET VOLUME 9.9 fL (7.4-11.4); MONOCYTES # (AUTO) 0.6 10^3/uL (0.0-1.0); MONOCYTES % (AUTO) 7.8 %; NEUTROPHILS # (AUTO) 5.6 10^3/uL (1.5-6.6); NEUTROPHILS % (AUTO) 74.4 %; PLT - PLATELET COUNT 161 10^3/uL (130-450); RED BLOOD COUNT 4.24 10^6/uL (4.70-6.10); RED CELL DISTRIBUTION WIDTH 13.2 % (12.0-15.0); WHITE BLOOD COUNT 7.6 x10^3/uL (4.8-10.8)
--- NOTE | 2019-03-08 06:29 | XRAY Report ---
Reason: Pleural effusion Procedure Date: 03/08/2019 Accession Number: [id number] / [id number] Procedure: XR - Chest 1 View X-Ray CPT Code: 16761 Final Report FULL RESULT: EXAM: CHEST RADIOGRAPHY EXAM DATE: 03/08/2019 06:03 AM. CLINICAL HISTORY: Pleural effusion. COMPARISON: CHEST 1 VIEW 03/07/2019 10:30 AM. TECHNIQUE: 1 view. FINDINGS: The heart is enlarged. Pulmonary edema is unchanged. Bilateral lower lobe airspace opacities, right greater than left, are unchanged. There is no pneumothorax. The right pleural effusion is unchanged in size. IMPRESSION: Unchanged pulmonary edema and right greater than left lower lobe airspace opacities. Right pleural effusion. RADIA
[2019-03-08 06:31] LABS: CALCIUM 9.1 mg/dL (8.5-10.3); MAGNESIUM 1.8 mg/dL (1.7-2.8)
--- NOTE | 2019-03-08 07:43 | PROVIDER PROGRESS NOTE ---
Assessment/Plan - Problem List (1) Congestive heart failure Qualifiers: Heart failure type: unspecified Heart failure chronicity: acute on chronic Qualified Code(s): I50.9 - Heart failure, unspecified Assessment/Plan: Troponins are neg. BNP has not changed but is only minimally elevated in 200's. Echo is pending (today is Saturday, will await routine Echo to be done on Sat). Continue iv bid diuretics. Follow daily weight, I's and O's He was seen by PT, needed supplemental O2, and was so weak, that a Home Health referral was advised for home PT, the pt was agreeable. (2) CAP (community acquired pneumonia) Assessment/Plan: Today's CXR reading was more certain of bilateral infiltrates. Sputum cx was ordered at admission. Will start iv Ceftriaxone and po Zithromax, Florastor, Mucinex. Await cx to focus meds. (3) Pleural effusion Assessment/Plan: Related to new CHF or from pneumonia. Will recheck after several days of diuretics and several days of antibiotics. (4) Atrial fibrillation Qualifiers: Atrial fibrillation type: unspecified Qualified Code(s): I48.91 - Unspecified atrial fibrillation Assessment/Plan: He may have had remote Afib, but cannot remember, he said. His rate was elevated at admission and po Metoprolol dose increased for better rate control. Afib with RVR may be the reason for this CHF exacerbation. TSH is normal. He is not on anticoagulation due to a Hx of subarrachnoid hemorrhage. Continue daily ASA for stroke prophylaxis. (5) Alcohol use disorder Assessment/Plan: Apparently he gets his 1-2 alcoholic drinks metered out to him by his caregiver, daily vs only "3 times a week" per the patient. There is a record of a ground level fall from alcohol intoxication, resulting in a subarrachnoid hemorrhage many years ago. The patient does not recall that and denied it to the admitting provider. Records from [facility] were requested to confirm it, therefore. For that reason he is not on anticoagulation, presumable. (6) HTN (hypertension) Assessment/Plan: BP stable on current meds (7) BPH (benign prostatic hyperplasia) Assessment/Plan: His home meds were ordered to be continued here He had a Acevedo placed yesterday evening, pulled it out, it was replaced, therefore some hematuria could be expected. (8) Lymphedema of both lower extremities Assessment/Plan: His pitting edema to his hips, is greater than the amount of chronic swelling he used to have of his calves and shins. (9) Hx of coronary artery disease Assessment/Plan: Continue statin Awaiting echo - Current Meds Current Meds: Current Medications Generic Name Dose Route Start Last Admin Trade Name Freq PRN Reason Stop Dose Admin Famotidine 20 mg 03/07/19 21:00 03/07/19 21:21 Pepcid PO 20 mg BID HERLINDA Administration Furosemide 20 mg 03/08/19 06:00 03/08/19 05:36 Lasix Inj 20mg Vial IVP 20 mg BIDDIURETIC HERLINDA Administration Heparin Sodium (Porcine) 5,000 unit 03/07/19 21:00 03/07/19 21:22 SUBQ 5,000 unit BID HERLINDA Administration Nystatin 1 applic 03/07/19 23:45 03/08/19 00:38 Nystop TOP 1 applic BID HERLINDA Administration Sodium Chloride 10 ml 03/07/19 15:27 03/08/19 05:37 Normal Saline Flush 0.9% IVP 10 ml PRN PRN Administration NEEDED PER PROVIDER ORDERS Sodium Chloride 10 ml 03/07/19 17:00 03/08/19 01:32 Normal Saline Flush 0.9% IVP Not Given 0100,0900,1700 HERLINDA Thiamine HCl 100 mg 03/07/19 17:00 03/07/19 20:25 Vitamin B-1 PO 100 mg DAILY HERLINDA Administration - Lab Result Fish Bone Diagrams: 03/08/19 06:10 03/08/19 06:10 - Additional Planning My Orders: My Active Orders 03/07/19 15:27 Activity Orders [RC] Q2HR IO [RC] IOSHIFT Initiate Bowel Care Protocol [RC] .protocol Initiate Line Care Protocol [RC] QSHIFT Initiate Personal Care Protoco [RC] .protocol Oxygen Therapy [RC] Routine Telemetry- [RC] Q4HR Vital Signs [RC] 0800,1600,0000 Acetaminophen [Tylenol] 650 mg PO Q4HR PRN Prochlorperazine Inj [Compazine Inj] 10 mg IVP Q6HR PRN Sodium Chloride Flush 0.9% [Normal Saline Flush 0.9%] 10 ml IVP PRN PRN Code Status [OTHERS] Routine Condition of Patient [OTHERS] Routine DVT Prophylaxis [OTHERS] Routine 03/07/19 15:28 Daily Weight [RC] 0600 IV Insert [RC] .ONCE 03/07/19 15:29 Evaluate and Treat OT [OT] Routine Evaluate and Treat PT [PT] Routine 03/07/19 15:32 Acevedo Insertion [RC] QSHIFT 03/07/19 17:00 Sodium Chloride Flush 0.9% [Normal Saline Flush 0.9%] 10 ml IVP 0100,0900,1700 Thiamine [Vitamin B-1] 100 mg PO DAILY 03/07/19 21:00 Famotidine [Pepcid] 20 mg PO BID Heparin 5,000 unit SUBQ BID 03/07/19 Dinner Low Sodium Diet [DIET] 03/08/19 06:00 FUROSEMIDE INJ 20mg VIAL [LASIX INJ 20mg VIAL] 20 mg IVP BIDDIURETIC 03/09/19 05:00 BMP - BASIC METABOLIC PANEL [CHEM] DAILYLAB CBC - COMP BLD CT W/AUTO DIFF [HEME] DAILYLAB MAGNESIUM [CHEM] DAILYLAB 03/09/19 08:00 Echo Transthoracic Complete [ECHO] Routine 03/10/19 05:00 BMP - BASIC METABOLIC PANEL [CHEM] DAILYLAB CBC - COMP BLD CT W/AUTO DIFF [HEME] DAILYLAB Subjective - Subjective Patient Reports: Resting Comfortably, Shortness of Breath Nursing Reports: Shortness of Breath Objective Vital Signs: Vital Signs - 24 hr 03/07/19 03/07/19 03/07/19 10:06 10:57 11:13 Temperature 36.3 C L Heart Rate 108 H 102 H 109 H Heart Rate [ Brachial] Respiratory 23 22 20 Rate Blood Pressure 131/75 H 151/91 H 120/88 H Blood Pressure [Left Brachial artery] Blood Pressure [Right Brachial artery] O2 Saturation 97 95 97 03/07/19 03/07/19 03/07/19 11:46 13:41 14:02 Temperature Heart Rate 103 H 117 H 121 H Heart Rate [ Brachial] Respiratory 18 22 22 Rate Blood Pressure 117/73 136/79 H 145/91 H Blood Pressure [Left Brachial artery] Blood Pressure [Right Brachial artery] O2 Saturation 94 96 93 03/07/19 03/07/19 03/07/19 15:00 15:10 15:15 Temperature Heart Rate 76 69 72 Heart Rate [ Brachial] Respiratory 20 20 18 Rate Blood Pressure 101/83 H 105/79 112/85 H Blood Pressure [Left Brachial artery] Blood Pressure [Right Brachial artery] O2 Saturation 95 93 03/07/19 03/07/19 03/07/19 15:30 15:45 16:00 Temperature 36.0 C L Heart Rate 85 72 99 Heart Rate [ 62 Brachial] Respiratory 18 18 20 Rate Blood Pressure 132/74 H 116/72 130/83 H Blood Pressure 119/90 H [Left Brachial artery] Blood Pressure [Right Brachial artery] O2 Saturation 94 97 03/07/19 03/07/19 03/07/19 19:35 21:20 23:40 Temperature 36.2 C L 36.1 C L Heart Rate Heart Rate [ 96 108 H 91 Brachial] Respiratory 22 24 20 Rate Blood Pressure Blood Pressure [Left Brachial artery] Blood Pressure 158/83 H 135/78 H 128/91 H [Right Brachial artery] O2 Saturation 97 98 03/08/19 03/08/19 03/08/19 01:30 02:30 02:45 Temperature Heart Rate Heart Rate [ 90 90 88 Brachial] Respiratory 20 24 20 Rate Blood Pressure Blood Pressure [Left Brachial artery] Blood Pressure [Right Brachial artery] O2 Saturation 94 84 L 92 03/08/19 03:20 Temperature 36.3 C L Heart Rate Heart Rate [ 68 Brachial] Respiratory 18 Rate Blood Pressure Blood Pressure [Left Brachial artery] Blood Pressure 134/81 H [Right Brachial artery] O2 Saturation 93 Oxygen O2 Source Nasal cannula I&O (Last 24 Hrs): Intake and Output Totals x24h 03/06/19 03/07/19 03/08/19 23:59 23:59 23:59 Intake Total 240 Output Total 1775 1175 Balance -1535 -1175 General: Other (Sleeping) HEENT: Mucous membr. moist/pink Neck: Supple Neuro: Non Focal Cardiovascular: No murmurs Respiratory: No respiratory distress, Rales Abdomen: Soft Extremities: Other (Feet have 4+ lymphedema, legs have 2+ edema to groin) - Results Results: Laboratory Results WBC 7.6 x10^3/uL (4.8-10.8) 03/08/19 06:10 RBC 4.24 10^6/uL (4.70-6.10) L 03/08/19 06:10 Hgb 12.9 g/dL (14.0-18.0) L 03/08/19 06:10 Hct 41.0 % (42.0-52.0) L 03/08/19 06:10 MCV 96.7 fL (80.0-94.0) H 03/08/19 06:10 MCH 30.4 pg (27.0-31.0) 03/08/19 06:10 MCHC 31.5 g/dL (32.0-36.0) L 03/08/19 06:10 RDW 13.2 % (12.0-15.0) 03/08/19 06:10 Plt Count 161 10^3/uL (130-450) 03/08/19 06:10 MPV 9.9 fL (7.4-11.4) 03/08/19 06:10 Neut # (Auto) 5.6 10^3/uL (1.5-6.6) 03/08/19 06:10 Lymph # (Auto) 1.1 10^3/uL (1.5-3.5) L 03/08/19 06:10 Hart # (Auto) 0.6 10^3/uL (0.0-1.0) 03/08/19 06:10 Eos # (Auto) 0.2 10^3/uL (0.0-0.7) 03/08/19 06:10 Baso # (Auto) 0.1 10^3/uL (0.0-0.1) 03/08/19 06:10 Absolute Nucleated RBC 0.00 x10^3/uL 03/08/19 06:10 Nucleated RBC % 0.0 /100WBC 03/08/19 06:10 PT 12.9 secs (9.9-12.6) H 03/07/19 10:20 INR 1.1 (0.8-1.2) 03/07/19 10:20 Sodium 141 mmol/L (135-145) 03/08/19 06:10 Potassium 4.2 mmol/L (3.5-5.0) 03/08/19 06:10 Chloride 106 mmol/L (101-111) 03/08/19 06:10 Carbon Dioxide 26 mmol/L (21-32) 03/08/19 06:10 Anion Gap 9.0 (6-13) 03/08/19 06:10 BUN 28 mg/dL (6-20) H 03/08/19 06:10 Creatinine 1.0 mg/dL (0.6-1.2) 03/08/19 06:10 Estimated GFR (MDRD) 71 (>89) L 03/08/19 06:10 Glucose 134 mg/dL (70-100) H 03/08/19 06:10 Calcium 9.1 mg/dL (8.5-10.3) 03/08/19 06:10 Magnesium 1.8 mg/dL (1.7-2.8) 03/08/19 06:10 Total Bilirubin 0.6 mg/dL (0.2-1.0) 03/07/19 10:20 AST 21 IU/L (10-42) 03/07/19 10:20 ALT 19 IU/L (10-60) 03/07/19 10:20 Alkaline Phosphatase 66 IU/L (42-121) 03/07/19 10:20 Troponin I High Sens 17.6 ng/L (2.3-19.7) 03/07/19 15:53 B-Natriuretic Peptide 238 pg/mL (5-100) H 03/08/19 06:10 Total Protein 7.1 g/dL (6.7-8.2) 03/07/19 10:20 Albumin 3.9 g/dL (3.2-5.5) 03/07/19 10:20 Globulin 3.2 g/dL (2.1-4.2) 03/07/19 10:20 Albumin/Globulin Ratio 1.2 (1.0-2.2) 03/07/19 10:20 Lipase 25 U/L (22-51) 03/07/19 10:20 TSH 2.39 uIU/mL (0.34-5.60) 03/08/19 06:10 Urine Color YELLOW 03/07/19 11:40 Urine Clarity CLEAR (CLEAR) 03/07/19 11:40 Urine pH 5.5 PH (5.0-7.5) 03/07/19 11:40 Ur Specific [place] 1.015 (1.002-1.030) 03/07/19 11:40 Urine Protein NEGATIVE mg/dL (NEGATIVE) 03/07/19 11:40 Urine Glucose (UA) NEGATIVE mg/dL (NEGATIVE) 03/07/19 11:40 Urine Ketones NEGATIVE mg/dL (NEGATIVE) 03/07/19 11:40 Urine Occult Blood TRACE-INTA (NEGATIVE) 03/07/19 11:40 Urine Nitrite NEGATIVE (NEGATIVE) 03/07/19 11:40 Urine Bilirubin NEGATIVE (NEGATIVE) 03/07/19 11:40 Urine Urobilinogen 0.2 (NORMAL) E.U./dL (NORMAL) 03/07/19 11:40 Ur Leukocyte Esterase NEGATIVE (NEGATIVE) 03/07/19 11:40 Ur Microscopic Review NOT INDICATED 03/07/19 11:40 Urine Culture Comments NOT INDICATED 03/07/19 11:40 Ethyl Alcohol 8.0 mg/dL 03/07/19 10:20
[2019-03-08] MEDS ORDERED: AZITHROMYCIN 250 MG TABLET PO SCH (07:56)
[2019-03-08] MEDS: FAMOTIDINE 20 MG TABLET PO SCH ×2 (08:38→21:27)
[2019-03-08] MEDS: METOPROLOL SUCCINATE 25 MG TABLET PO SCH ×2 (08:38→21:27)
[2019-03-08] MEDS: TAMSULOSIN 0.4 MG CAPSULE PO SCH (08:38)
[2019-03-08] MEDS: guaiFENesin 600 MG TABLET PO SCH ×2 (08:39→21:27)
[2019-03-08] MEDS: ASPIRIN EC 81 MG TABLET PO SCH (08:39)
[2019-03-08] MEDS: THIAMINE 100 MG TABLET PO SCH (08:39)
[2019-03-08] MEDS: SACCHAROMYCES BOULARDII 250 MG CAPSULE PO SCH ×2 (08:39→17:08)
[2019-03-08] MEDS: cefTRIAXone 2 GM in SODIUM CHLORIDE 0.9% MINIBAG 100 ML IV SCH (08:39)
[2019-03-08] MEDS: FINASTERIDE 5 MG TABLET PO SCH (08:40)
[2019-03-08] MEDS: HEPARIN 5,000 UNIT/ML VIAL SUBQ SCH ×2 (08:46→21:35)
--- NOTE | 2019-03-08 12:19 | DISCHARGE SUMMARY ---
Discharge Summary Admit Date: 03/07/19 Discharge Date: 03/08/19 Discharging Provider: Dr Jill Powers Primary Care Provider: None Code Status: Attempt Resuscitation Condition at Discharge: Stable Discharge Disposition: 01 Home, Self Care - DIAGNOSES Admission Diagnoses: 1) Chest pain 2) Hx of CAD with stents 3) Hx of CVA 4) Hx of brain aneurysm and shunt 5) Hyperlipidemia 6) BPH - ALLERGIES Allergies/Adverse Reactions: Allergies Allergy/AdvReac Type Severity Reaction Status Date / Time No Known Drug Allergies Allergy Verified 11/22/13 09:11 - MEDICATIONS Home Medications: Ambulatory Orders Medication Instructions Recorded Confirmed Aspirin [Aspir 81] 81 mg PO DAILY 11/22/13 03/07/19 Atorvastatin Calcium 80 mg PO DAILY 11/22/13 03/07/19 Lisinopril 40 mg PO DAILY 11/22/13 03/07/19 Tamsulosin HCl [Flomax] 0.4 mg PO DAILY 11/22/13 03/07/19 Finasteride [Propecia] 1 mg PO DAILY 04/26/17 03/07/19 Metoprolol Succinate 50 mg PO DAILY 03/07/19 03/07/19 - LABS Result Diagrams: 03/08/19 06:10 03/08/19 06:10
[2019-03-08] MEDS ORDERED: chlordiazePOXIDE 25 MG CAPSULE PO SCH (16:04)
[2019-03-08] MEDS: LIQUOR 50 ML BOTTLE PO SCH (17:59)
[2019-03-08] MEDS: chlordiazePOXIDE 25 MG CAPSULE PO SCH (21:27)
[2019-03-09] MEDS: SODIUM CHLORIDE FLUSH 0.9% 10 ML SYRINGE IVP SCH ×4 (05:38→16:47)
[2019-03-09] MEDS: FUROSEMIDE 20 MG/2 ML VIAL IVP SCH ×2 (05:39→14:40)
[2019-03-09] MEDS: SODIUM CHLORIDE FLUSH 0.9% 10 ML SYRINGE IVP PRN (05:39)
[2019-03-09 05:46] LABS: BASOPHILS # (AUTO) 0.1 10^3/uL (0.0-0.1); BASOPHILS % (AUTO) 1.2 %; EOSINOPHILS # (AUTO) 0.2 10^3/uL (0.0-0.7); EOSINOPHILS % (AUTO) 3.5 %; HGB - HEMOGLOBIN 12.2 g/dL (14.0-18.0); LYMPHOCYTES # (AUTO) 1.6 10^3/uL (1.5-3.5); LYMPHOCYTES % (AUTO) 27.4 %; MEAN CORPUSCULAR HEMOGLOBIN 30.4 pg (27.0-31.0); MEAN CORPUSCULAR HGB CONC 31.4 g/dL (32.0-36.0); MEAN CORPUSCULAR VOLUME 96.8 fL (80.0-94.0); MEAN PLATELET VOLUME 10.3 fL (7.4-11.4); MONOCYTES # (AUTO) 0.8 10^3/uL (0.0-1.0); NEUTROPHILS # (AUTO) 3.1 10^3/uL (1.5-6.6); NEUTROPHILS % (AUTO) 54.6 %; PLT - PLATELET COUNT 146 10^3/uL (130-450); RED BLOOD COUNT 4.01 10^6/uL (4.70-6.10); RED CELL DISTRIBUTION WIDTH 13.1 % (12.0-15.0); WHITE BLOOD COUNT 5.8 x10^3/uL (4.8-10.8)
[2019-03-09 05:49] LABS: CALCIUM 8.8 mg/dL (8.5-10.3); MAGNESIUM 1.8 mg/dL (1.7-2.8)
[2019-03-09] MEDS ORDERED: MIN OIL/DIMETHICON/COCONUT OIL 92 GM TUBE TOP PRN (06:37)
[2019-03-09] MEDS: guaiFENesin 600 MG TABLET PO SCH ×2 (08:44→20:54)
[2019-03-09] MEDS: TAMSULOSIN 0.4 MG CAPSULE PO SCH (08:44)
[2019-03-09] MEDS: FINASTERIDE 5 MG TABLET PO SCH (08:44)
[2019-03-09] MEDS: THIAMINE 100 MG TABLET PO SCH (08:44)
[2019-03-09] MEDS: cefTRIAXone 2 GM in SODIUM CHLORIDE 0.9% MINIBAG 100 ML IV SCH (08:44)
[2019-03-09] MEDS: ASPIRIN EC 81 MG TABLET PO SCH (08:44)
[2019-03-09] MEDS: SACCHAROMYCES BOULARDII 250 MG CAPSULE PO SCH ×2 (08:44→16:47)
[2019-03-09] MEDS: AZITHROMYCIN 250 MG TABLET PO SCH (08:45)
[2019-03-09] MEDS: METOPROLOL SUCCINATE 25 MG TABLET PO SCH ×2 (08:45→20:54)
[2019-03-09] MEDS: NYSTATIN POWDER 15 GM TOP SCH ×2 (08:45→20:55)
[2019-03-09] MEDS: FAMOTIDINE 20 MG TABLET PO SCH ×2 (08:45→20:54)
[2019-03-09] MEDS: HEPARIN 5,000 UNIT/ML VIAL SUBQ SCH ×2 (09:59→20:58)
[2019-03-09] MEDS: chlordiazePOXIDE 25 MG CAPSULE PO SCH ×2 (11:43→20:55)
--- NOTE | 2019-03-09 13:10 | PROVIDER PROGRESS NOTE ---
Assessment/Plan - Problem List (1) Congestive heart failure Qualifiers: Heart failure type: unspecified Assessment/Plan: The Echo done today shows a mildy depressed LVEF of 40-45%. This could be alcoholic cardiomyopathy, or tachycardia-induced cardiomyopathy, or ischemic cardiomyopathy (if he should have balanced 3-vessel CAD). Continue diuresis (transitioning iv to po), B-maria eugenia and JEFERSON (home dose was Lisinopril 40 mg, decreased here to use other meds) (2) CAP (community acquired pneumonia) Assessment/Plan: He remains on iv Ceftriaxone and Zitthromax and Mucinex for pulmonary toilet Blood cx are ntd, he made no sputum to send for cx (3) Pleural effusion Assessment/Plan: Will recheck CXR for resolution vs persistence and possible thoracentesis (4) Atrial fibrillation Qualifiers: Atrial fibrillation type: unspecified Qualified Code(s): I48.91 - Unspecified atrial fibrillation Assessment/Plan: Rate under better control with rising dose of Metoprolol Daily ASA for stroke prophylaxis, no anticoagulation due to hx of subarrachnoid hemorrhage (5) Alcohol use disorder Assessment/Plan: He is on a CIWA protocol, got low dose Librium and gets 50cc of vodka with dinner ordered here. He cannot remember some past details in his Hx (couldn't be sure if he had a subarrachnoid hemorrhage; we had to get records and confirmed that), is very tangential when he speaks, making the possibility of Wernicke-Korsakoff syndrome a possibility. He is on daily po Thiamone here. (6) HTN (hypertension) Assessment/Plan: BP controlled on current meds (7) BPH (benign prostatic hyperplasia) Assessment/Plan: Home meds were ordered (8) Lymphedema of both lower extremities Assessment/Plan: Chronic and severe, he apparently has a home boot he wears (9) Hx of coronary artery disease Assessment/Plan: He should have outpatient f/u with PCP or CArdiology after Dch, to determine if he needs W/U for worsening of CAD - Current Meds Current Meds: Current Medications Generic Name Dose Route Start Last Admin Trade Name Freq PRN Reason Stop Dose Admin Alcohol 50 ml 03/08/19 18:00 03/08/19 17:59 Liquor PO 50 ml 1800 HERLINDA Administration Aspirin 81 mg 03/08/19 09:00 03/09/19 08:44 Ecotrin PO 81 mg DAILY HERLINDA Administration Azithromycin 250 mg 03/09/19 09:00 03/09/19 08:45 Zithromax PO 03/13/19 00:00 250 mg DAILY HERLINDA Administration Chlordiazepoxide HCl 25 mg 03/08/19 22:00 03/09/19 11:43 Librium PO 25 mg 1000,2200 HERLINDA Administration Famotidine 20 mg 03/07/19 21:00 03/09/19 08:45 Pepcid PO 20 mg BID HERLINDA Administration Finasteride 5 mg 03/08/19 09:00 03/09/19 08:44 Proscar PO 5 mg DAILY HERLINDA Administration Furosemide 20 mg 03/08/19 06:00 03/09/19 05:39 Lasix Inj 20mg Vial IVP 20 mg BIDDIURETIC HERLINDA Administration Guaifenesin 600 mg 03/08/19 09:00 03/09/19 08:44 Mucinex PO 600 mg BID HERLINDA Administration Heparin Sodium (Porcine) 5,000 unit 03/07/19 21:00 03/09/19 09:59 SUBQ 5,000 unit BID HERLINDA Administration Ceftriaxone Sodium 2 gm/ 100 mls @ 200 mls/hr 03/08/19 09:00 03/09/19 09:18 Sodium Chloride IV Infused DAILY HERLINDA Infusion Metoprolol Succinate 50 mg 03/08/19 09:00 03/09/19 08:45 Toprol Xl PO 50 mg BID HERLINDA Administration Nystatin 1 applic 03/07/19 23:45 03/09/19 08:45 Nystop TOP 1 applic BID HERLINDA Administration Saccharomyces Boulardii 250 mg 03/08/19 09:00 03/09/19 08:44 Florastor PO 250 mg BIDWM HERLINDA Administration Sodium Chloride 10 ml 03/07/19 15:27 03/09/19 05:39 Normal Saline Flush 0.9% IVP 10 ml PRN PRN Administration NEEDED PER PROVIDER ORDERS Sodium Chloride 10 ml 03/07/19 17:00 03/09/19 08:45 Normal Saline Flush 0.9% IVP 10 ml 0100,0900,1700 HERLINDA Administration Tamsulosin HCl 0.4 mg 03/08/19 09:00 03/09/19 08:44 Flomax PO 0.4 mg DAILY HERLINDA Administration Thiamine HCl 100 mg 03/07/19 17:00 03/09/19 08:44 Vitamin B-1 PO 100 mg DAILY HERLINDA Administration - Lab Result Fish Bone Diagrams: 03/09/19 05:11 03/09/19 05:11 - Additional Planning My Orders: My Active Orders 03/08/19 18:00 Liquor 50 ml PO 1800 03/08/19 22:00 chlordiazePOXIDE [Librium] 25 mg PO 1000,2200 03/09/19 06:37 Min Oil/Dimeth/Coconut Oil Crm [Cavilon] 1 applic TOP PRN PRN 03/09/19 08:00 Echo Transthoracic Complete [ECHO] Routine 03/09/19 09:00 Azithromycin [Zithromax] 250 mg PO DAILY 03/09/19 16:00 Vitamin [Trinatal Rx 1] 1 tab PO DAILYWM 03/10/19 05:00 BMP - BASIC METABOLIC PANEL [CHEM] DAILYLAB CBC - COMP BLD CT W/AUTO DIFF [HEME] DAILYLAB Subjective - Subjective Patient Reports: Feeling Better, Resting Comfortably Objective Vital Signs: Vital Signs - 24 hr 03/08/19 03/08/19 03/08/19 15:51 18:58 21:25 Temperature 36.6 C 36.7 C Heart Rate [ 76 100 85 Brachial] Heart Rate [ Sitting] Heart Rate [ Supine] Respiratory 18 16 Rate Blood Pressure 109/77 [Left Brachial artery] Blood Pressure 98/61 108/69 [Right Brachial artery] Blood Pressure [Sitting] Blood Pressure [Supine] O2 Saturation 95 94 O2 Saturation [ Sitting] O2 Saturation [ Supine] 03/08/19 03/09/19 03/09/19 23:35 03:20 08:00 Temperature 36.3 C L 36.7 C 36.4 C L Heart Rate [ 94 84 68 Brachial] Heart Rate [ Sitting] Heart Rate [ Supine] Respiratory 16 16 25 H Rate Blood Pressure 100/63 [Left Brachial artery] Blood Pressure 111/70 125/73 [Right Brachial artery] Blood Pressure [Sitting] Blood Pressure [Supine] O2 Saturation 98 94 94 O2 Saturation [ Sitting] O2 Saturation [ Supine] 03/09/19 03/09/19 10:33 12:48 Temperature 36.4 C L Heart Rate [ 94 Brachial] Heart Rate [ 105 H Sitting] Heart Rate [ 100 Supine] Respiratory 24 Rate Blood Pressure [Left Brachial artery] Blood Pressure 92/59 L [Right Brachial artery] Blood Pressure 134/71 H [Sitting] Blood Pressure 139/94 H [Supine] O2 Saturation 93 O2 Saturation [ 94 Sitting] O2 Saturation [ 95 Supine] Oxygen O2 Source [With Activity] 1L via nc O2 Source [Without Activity] Room air O2 Source Nasal cannula I&O (Last 24 Hrs): Intake and Output Totals x24h 03/07/19 03/08/19 03/09/19 23:59 23:59 23:59 Intake Total 011 682 8950 Output Total 1775 2340 1600 Balance -7693 -1907 -041 General: Alert HEENT: Mucous membr. moist/pink Neck: Supple, No JVD Neuro: Non Focal Cardiovascular: No murmurs, Other (Irreg) Respiratory: No respiratory distress, Other (Clear anteriorly) Abdomen: Soft Extremities: Other (4+ pedal lymphedema, 2+ leg edema) - Results Results: Laboratory Results WBC 5.8 x10^3/uL (4.8-10.8) 03/09/19 05:11 RBC 4.01 10^6/uL (4.70-6.10) L 03/09/19 05:11 Hgb 12.2 g/dL (14.0-18.0) L 03/09/19 05:11 Hct 38.8 % (42.0-52.0) L 03/09/19 05:11 MCV 96.8 fL (80.0-94.0) H 03/09/19 05:11 MCH 30.4 pg (27.0-31.0) 03/09/19 05:11 MCHC 31.4 g/dL (32.0-36.0) L 03/09/19 05:11 RDW 13.1 % (12.0-15.0) 03/09/19 05:11 Plt Count 146 10^3/uL (130-450) 03/09/19 05:11 MPV 10.3 fL (7.4-11.4) 03/09/19 05:11 Neut # (Auto) 3.1 10^3/uL (1.5-6.6) 03/09/19 05:11 Lymph # (Auto) 1.6 10^3/uL (1.5-3.5) 03/09/19 05:11 [place] # (Auto) 0.8 10^3/uL (0.0-1.0) 03/09/19 05:11 Eos # (Auto) 0.2 10^3/uL (0.0-0.7) 03/09/19 05:11 Baso # (Auto) 0.1 10^3/uL (0.0-0.1) 03/09/19 05:11 Absolute Nucleated RBC 0.00 x10^3/uL 03/09/19 05:11 Nucleated RBC % 0.0 /100WBC 03/09/19 05:11 PT 12.9 secs (9.9-12.6) H 03/07/19 10:20 INR 1.1 (0.8-1.2) 03/07/19 10:20 Sodium 140 mmol/L (135-145) 03/09/19 05:11 Potassium 3.7 mmol/L (3.5-5.0) 03/09/19 05:11 Chloride 103 mmol/L (101-111) 03/09/19 05:11 Carbon Dioxide 28 mmol/L (21-32) 03/09/19 05:11 Anion Gap 9.0 (6-13) 03/09/19 05:11 BUN 24 mg/dL (6-20) H 03/09/19 05:11 Creatinine 1.0 mg/dL (0.6-1.2) 03/09/19 05:11 Estimated GFR (MDRD) 71 (>89) L 03/09/19 05:11 Glucose 112 mg/dL (70-100) H 03/09/19 05:11 Calcium 8.8 mg/dL (8.5-10.3) 03/09/19 05:11 Magnesium 1.8 mg/dL (1.7-2.8) 03/09/19 05:11 Total Bilirubin 0.6 mg/dL (0.2-1.0) 03/07/19 10:20 AST 21 IU/L (10-42) 03/07/19 10:20 ALT 19 IU/L (10-60) 03/07/19 10:20 Alkaline Phosphatase 66 IU/L (42-121) 03/07/19 10:20 Troponin I High Sens 17.6 ng/L (2.3-19.7) 03/07/19 15:53 B-Natriuretic Peptide 238 pg/mL (5-100) H 03/08/19 06:10 Total Protein 7.1 g/dL (6.7-8.2) 03/07/19 10:20 Albumin 3.9 g/dL (3.2-5.5) 03/07/19 10:20 Globulin 3.2 g/dL (2.1-4.2) 03/07/19 10:20 Albumin/Globulin Ratio 1.2 (1.0-2.2) 03/07/19 10:20 Lipase 25 U/L (22-51) 03/07/19 10:20 TSH 2.39 uIU/mL (0.34-5.60) 03/08/19 06:10 Urine Color YELLOW 03/07/19 11:40 Urine Clarity CLEAR (CLEAR) 03/07/19 11:40 Urine pH 5.5 PH (5.0-7.5) 03/07/19 11:40 Ur Specific [place] 1.015 (1.002-1.030) 03/07/19 11:40 Urine Protein NEGATIVE mg/dL (NEGATIVE) 03/07/19 11:40 Urine Glucose (UA) NEGATIVE mg/dL (NEGATIVE) 03/07/19 11:40 Urine Ketones NEGATIVE mg/dL (NEGATIVE) 03/07/19 11:40 Urine Occult Blood TRACE-INTA (NEGATIVE) 03/07/19 11:40 Urine Nitrite NEGATIVE (NEGATIVE) 03/07/19 11:40 Urine Bilirubin NEGATIVE (NEGATIVE) 03/07/19 11:40 Urine Urobilinogen 0.2 (NORMAL) E.U./dL (NORMAL) 03/07/19 11:40 Ur Leukocyte Esterase NEGATIVE (NEGATIVE) 03/07/19 11:40 Ur Microscopic Review NOT INDICATED 03/07/19 11:40 Urine Culture Comments NOT INDICATED 03/07/19 11:40 Ethyl Alcohol 8.0 mg/dL 03/07/19 10:20
[2019-03-09] MEDS: PRENATAL VITAMIN TABLET PO SCH (16:47)
[2019-03-09] MEDS: LIQUOR 50 ML BOTTLE PO SCH (17:25)
[2019-03-10 05:43] LABS: BASOPHILS # (AUTO) 0.1 10^3/uL (0.0-0.1); BASOPHILS % (AUTO) 1.4 %; EOSINOPHILS # (AUTO) 0.3 10^3/uL (0.0-0.7); EOSINOPHILS % (AUTO) 5.3 %; HGB - HEMOGLOBIN 13.1 g/dL (14.0-18.0); LYMPHOCYTES # (AUTO) 1.9 10^3/uL (1.5-3.5); LYMPHOCYTES % (AUTO) 32.9 %; MEAN CORPUSCULAR HEMOGLOBIN 30.5 pg (27.0-31.0); MEAN CORPUSCULAR HGB CONC 31.4 g/dL (32.0-36.0); MEAN PLATELET VOLUME 10.3 fL (7.4-11.4); MONOCYTES # (AUTO) 0.7 10^3/uL (0.0-1.0); NEUTROPHILS # (AUTO) 2.7 10^3/uL (1.5-6.6); PLT - PLATELET COUNT 149 10^3/uL (130-450); RED CELL DISTRIBUTION WIDTH 13.2 % (12.0-15.0); WHITE BLOOD COUNT 5.6 x10^3/uL (4.8-10.8)
[2019-03-10 05:54] LABS: CALCIUM 9.1 mg/dL (8.5-10.3); CREATININE 1.1 mg/dL (0.6-1.2)
[2019-03-10] MEDS: SODIUM CHLORIDE FLUSH 0.9% 10 ML SYRINGE IVP SCH ×4 (05:54→17:38)
[2019-03-10] MEDS: FUROSEMIDE 20 MG/2 ML VIAL IVP SCH ×2 (06:01→13:47)
--- NOTE | 2019-03-10 07:55 | XRAY Report ---
Reason: Pneumonia, CHF and pleural effusion Procedure Date: 03/10/2019 Accession Number: [id number] / [id number] Procedure: XR - Chest 1 View X-Ray CPT Code: 49139 Final Report FULL RESULT: EXAM: CHEST RADIOGRAPHY EXAM DATE: 03/10/2019 06:20 AM. CLINICAL HISTORY: Pneumonia, CHF, and pleural effusion. COMPARISON: CHEST 1 VIEW 03/08/2019 5:43 AM. TECHNIQUE: 1 view. FINDINGS: Lungs/Pleura: Interval increase in focal nodular density at the right lung base. Elsewhere, bilateral alveolar interstitial opacification appears without significant change. Mediastinum: Heart size stable and borderline enlarged. Other: None. IMPRESSION: Interval increase of focal density at the right lung base. Otherwise, no significant change in bilateral infiltrates compatible with pulmonary edema. RADIA
[2019-03-10] MEDS: SACCHAROMYCES BOULARDII 250 MG CAPSULE PO SCH ×2 (08:58→17:39)
[2019-03-10] MEDS: PRENATAL VITAMIN TABLET PO SCH (08:58)
[2019-03-10] MEDS: AZITHROMYCIN 250 MG TABLET PO SCH (08:58)
[2019-03-10] MEDS: THIAMINE 100 MG TABLET PO SCH (08:58)
[2019-03-10] MEDS: ATORVASTATIN 40 MG TABLET PO SCH (08:58)
[2019-03-10] MEDS: LISINOPRIL 5 MG TABLET PO SCH (08:58)
[2019-03-10] MEDS: METOPROLOL SUCCINATE 25 MG TABLET PO SCH ×2 (08:58→20:57)
[2019-03-10] MEDS: guaiFENesin 600 MG TABLET PO SCH ×2 (08:58→20:58)
[2019-03-10] MEDS: FAMOTIDINE 20 MG TABLET PO SCH ×2 (08:58→20:56)
[2019-03-10] MEDS: cefTRIAXone 2 GM in SODIUM CHLORIDE 0.9% MINIBAG 100 ML IV SCH (08:58)
[2019-03-10] MEDS: NYSTATIN POWDER 15 GM TOP SCH ×2 (08:59→21:04)
[2019-03-10] MEDS: TAMSULOSIN 0.4 MG CAPSULE PO SCH (08:59)
[2019-03-10] MEDS: ASPIRIN EC 81 MG TABLET PO SCH (08:59)
[2019-03-10] MEDS: FINASTERIDE 1 MG PO SCH (09:04)
[2019-03-10] MEDS: HEPARIN 5,000 UNIT/ML VIAL SUBQ SCH ×2 (09:07→20:57)
--- NOTE | 2019-03-10 14:43 | PROVIDER PROGRESS NOTE ---
Assessment/Plan - Problem List (1) Congestive heart failure Qualifiers: Heart failure type: unspecified Assessment/Plan: pt slight improved his shortness of breath when I talked with him. CHF is likely the main cause of SOB. pt's pit edema is improved on bilateral lower extremities. pt is likely to have combination of systolic and diastolic CHF according to The Echo which showed a mildy depressed LVEF of 40-45% and moderate right heart abnormal pressure. This could be caused by alcoholic cardiomyopathy, or tachycardia-induced cardiomyopathy, or ischemic cardiomyopathy (if he should have balanced 3-vessel CAD). Continue diuresis (transitioned iv to po), B-maria eugenia and JEFERSON (home dose was Lisinopril 40 mg, decreased here to use other meds) Fluid restriction to 2000ml, daily weight, lower sodium diet continue tele, lab, vital monitor (2) CAP (community acquired pneumonia) Assessment/Plan: continue Ceftriaxone and, switch to PO Zitthromax and Mucinex for pulmonary toilet Blood cx are ntd (3) Pleural effusion Assessment/Plan: CXR image study did not indicate pt has lots of pleural effusion on right, left is stable. since pt is improved, will not consider thoracentesis now continue lasix, fluid restriction vital monitor (4) Atrial fibrillation HR is under better control with rising dose of Metoprolol, will continue same dosage of metoprolol Daily ASA for stroke prophylaxis, no anticoagulation due to hx of subarrachnoid hemorrhage continue tele monitor (5) Alcohol use disorder Assessment/Plan: pt is stable, pt is on a CIWA protocol, got low dose Librium and gets 50cc of vodka with dinner ordered here. He cannot remember some past details in his Hx of alcoholism, is very tangential when he speaks, making the possibility of Wernicke-Korsakoff syndrome a possibility. He is on daily po Thiamone here. pt may discharge with po B1 (6) HTN (hypertension) Assessment/Plan: BP controlled on current meds (7) BPH (benign prostatic hyperplasia) Assessment/Plan: Home meds were ordered (8) Lymphedema of both lower extremities Assessment/Plan: Chronic and severe, he apparently has a home boot he wears pt's pit edema is improved on bilateral lower extremities. pt is ordered home health PT per PT's recommendation, and home health RN for his care (9) Hx of coronary artery disease Assessment/Plan: advise pt to have outpatient f/u with PCP or CArdiology after Dch, to determine if he needs W/U for worsening of CAD - Current Meds Current Meds: Current Medications Generic Name Dose Route Start Last Admin Trade Name [place] PRN Reason Stop Dose Admin Alcohol 50 ml 03/08/19 18:00 03/09/19 17:25 Liquor PO 50 ml 1800 HERLINDA Administration Aspirin 81 mg 03/10/19 09:00 03/10/19 08:59 Ecotrin PO 81 mg DAILY HERLINDA Administration Atorvastatin Calcium 80 mg 03/10/19 09:00 03/10/19 08:58 Lipitor PO 80 mg DAILY HERLINDA Administration Azithromycin 250 mg 03/09/19 09:00 03/10/19 08:58 Zithromax PO 03/13/19 00:00 250 mg DAILY HERLINDA Administration Famotidine 20 mg 03/07/19 21:00 03/10/19 08:58 Pepcid PO 20 mg BID HERLINDA Administration Furosemide 20 mg 03/08/19 06:00 03/10/19 13:47 Lasix Inj 20mg Vial IVP 20 mg BIDDIURETIC HERLINDA Administration Guaifenesin 600 mg 03/08/19 09:00 03/10/19 08:58 Mucinex PO 600 mg BID HERLINDA Administration Heparin Sodium (Porcine) 5,000 unit 03/07/19 21:00 03/10/19 09:07 SUBQ 5,000 unit BID HERLINDA Administration Ceftriaxone Sodium 2 gm/ 100 mls @ 200 mls/hr 03/08/19 09:00 03/10/19 09:28 Sodium Chloride IV Infused DAILY HERLINDA Infusion Lisinopril 10 mg 03/10/19 09:00 03/10/19 08:58 Zestril PO 10 mg DAILY HERLINDA Administration Metoprolol Succinate 50 mg 03/08/19 09:00 03/10/19 08:58 Toprol Xl PO 50 mg BID HERLINDA Administration Nystatin 1 applic 03/07/19 23:45 03/10/19 08:59 Nystop TOP 1 applic BID HERLINDA Administration Patient Own Med ( 1 each 03/10/19 09:00 03/10/19 09:04 Finasteride [ PO Not Given Propecia] 1 Mg) DAILY HERLINDA Multivit/Folic Acid/Iron 1 tab 03/09/19 16:00 03/10/19 08:58 Trinatal Rx 1 PO 1 tab DAILYWM HERLINDA Administration Saccharomyces Boulardii 250 mg 03/08/19 09:00 03/10/19 08:58 Florastor PO 250 mg BIDWM HERLINDA Administration Sodium Chloride 10 ml 03/07/19 15:27 03/09/19 05:39 Normal Saline Flush 0.9% IVP 10 ml PRN PRN Administration NEEDED PER PROVIDER ORDERS Sodium Chloride 10 ml 03/07/19 17:00 03/10/19 13:43 Normal Saline Flush 0.9% IVP 10 ml 0100,0900,1700 HERLINDA Administration Tamsulosin HCl 0.4 mg 03/10/19 09:00 03/10/19 08:59 Flomax PO 0.4 mg DAILY HERLINDA Administration Thiamine HCl 100 mg 03/07/19 17:00 03/10/19 08:58 Vitamin B-1 PO 100 mg DAILY HERLINDA Administration - Lab Result Fish Bone Diagrams: 03/10/19 05:21 03/10/19 05:21 - Additional Planning My Orders: My Active Orders 03/10/19 10:41 Fluid Restriction [RC] ONCE 03/11/19 05:00 BMP - BASIC METABOLIC PANEL [CHEM] DAILYLAB CBC - COMP BLD CT W/AUTO DIFF [HEME] DAILYLAB 03/12/19 05:00 BMP - BASIC METABOLIC PANEL [CHEM] DAILYLAB CBC - COMP BLD CT W/AUTO DIFF [HEME] DAILYLAB 03/13/19 05:00 BMP - BASIC METABOLIC PANEL [CHEM] DAILYLAB CBC - COMP BLD CT W/AUTO DIFF [HEME] DAILYLAB 03/14/19 05:00 BMP - BASIC METABOLIC PANEL [CHEM] DAILYLAB CBC - COMP BLD CT W/AUTO DIFF [HEME] DAILYLAB Subjective - Subjective Patient Reports: Feeling Better Objective Vital Signs: Vital Signs - 24 hr 03/09/19 03/09/19 03/09/19 15:28 17:46 20:53 Temperature 36.3 C L 36.3 C L Heart Rate 86 Heart Rate [ 86 87 Brachial] Respiratory 18 18 Rate Blood Pressure 114/69 [Left Brachial artery] Blood Pressure 111/82 H [Right Brachial artery] O2 Saturation 95 96 03/09/19 03/10/19 03/10/19 21:00 00:51 04:06 Temperature 36.4 C L 36.8 C 36.3 C L Heart Rate Heart Rate [ 75 80 72 Brachial] Respiratory 18 20 20 Rate Blood Pressure [Left Brachial artery] Blood Pressure 111/82 H 131/79 H 139/92 H [Right Brachial artery] O2 Saturation 97 92 92 03/10/19 03/10/19 03/10/19 09:00 10:16 13:00 Temperature 36.3 C L 36.3 C L 35.1 C L Heart Rate 83 Heart Rate [ 119 H 57 L Brachial] Respiratory 21 26 H Rate Blood Pressure [Left Brachial artery] Blood Pressure 135/100 H 119/74 [Right Brachial artery] O2 Saturation 92 94 95 Oxygen O2 Source [With Activity] 1L via nc O2 Source [Without Activity] Room air O2 Source Room air I&O (Last 24 Hrs): Intake and Output Totals x24h 03/08/19 03/09/19 03/10/19 23:59 23:59 23:59 Intake Total 780 1280 300 Output Total 3150 2800 1700 Balance -2370 -1520 -1400 General: Alert, Mild distress HEENT: Atraumatic Neck: Supple Lymphatic: no adenopathy Neuro: Alert, Non Focal Cardiovascular: Regular rate, Normal S1, Normal S2 Respiratory: Chest non-tender Abdomen: Normal bowel sounds, Soft - Results Results: Laboratory Results WBC 5.6 x10^3/uL (4.8-10.8) 03/10/19 05:21 RBC 4.30 10^6/uL (4.70-6.10) L 03/10/19 05:21 Hgb 13.1 g/dL (14.0-18.0) L 03/10/19 05:21 Hct 41.7 % (42.0-52.0) L 03/10/19 05:21 MCV 97.0 fL (80.0-94.0) H 03/10/19 05:21 MCH 30.5 pg (27.0-31.0) 03/10/19 05:21 MCHC 31.4 g/dL (32.0-36.0) L 03/10/19 05:21 RDW 13.2 % (12.0-15.0) 03/10/19 05:21 Plt Count 149 10^3/uL (130-450) 03/10/19 05:21 MPV 10.3 fL (7.4-11.4) 03/10/19 05:21 Neut # (Auto) 2.7 10^3/uL (1.5-6.6) 03/10/19 05:21 Lymph # (Auto) 1.9 10^3/uL (1.5-3.5) 03/10/19 05:21 [place] # (Auto) 0.7 10^3/uL (0.0-1.0) 03/10/19 05:21 Eos # (Auto) 0.3 10^3/uL (0.0-0.7) 03/10/19 05:21 Baso # (Auto) 0.1 10^3/uL (0.0-0.1) 03/10/19 05:21 Absolute Nucleated RBC 0.00 x10^3/uL 03/10/19 05:21 Nucleated RBC % 0.0 /100WBC 03/10/19 05:21 PT 12.9 secs (9.9-12.6) H 03/07/19 10:20 INR 1.1 (0.8-1.2) 03/07/19 10:20 Sodium 139 mmol/L (135-145) 03/10/19 05:21 Potassium 4.0 mmol/L (3.5-5.0) 03/10/19 05:21 Chloride 102 mmol/L (101-111) 03/10/19 05:21 Carbon Dioxide 29 mmol/L (21-32) 03/10/19 05:21 Anion Gap 8.0 (6-13) 03/10/19 05:21 BUN 24 mg/dL (6-20) H 03/10/19 05:21 Creatinine 1.1 mg/dL (0.6-1.2) 03/10/19 05:21 Estimated GFR (MDRD) 64 (>89) L 03/10/19 05:21 Glucose 133 mg/dL (70-100) H 03/10/19 05:21 Calcium 9.1 mg/dL (8.5-10.3) 03/10/19 05:21 Magnesium 1.8 mg/dL (1.7-2.8) 03/09/19 05:11 Total Bilirubin 0.6 mg/dL (0.2-1.0) 03/07/19 10:20 AST 21 IU/L (10-42) 03/07/19 10:20 ALT 19 IU/L (10-60) 03/07/19 10:20 Alkaline Phosphatase 66 IU/L (42-121) 03/07/19 10:20 Troponin I High Sens 17.6 ng/L (2.3-19.7) 03/07/19 15:53 B-Natriuretic Peptide 277 pg/mL (5-100) H 03/10/19 11:46 Total Protein 7.1 g/dL (6.7-8.2) 03/07/19 10:20 Albumin 3.9 g/dL (3.2-5.5) 03/07/19 10:20 Globulin 3.2 g/dL (2.1-4.2) 03/07/19 10:20 Albumin/Globulin Ratio 1.2 (1.0-2.2) 03/07/19 10:20 Lipase 25 U/L (22-51) 03/07/19 10:20 TSH 2.39 uIU/mL (0.34-5.60) 03/08/19 06:10 Urine Color YELLOW 03/07/19 11:40 Urine Clarity CLEAR (CLEAR) 03/07/19 11:40 Urine pH 5.5 PH (5.0-7.5) 03/07/19 11:40 Ur Specific [place] 1.015 (1.002-1.030) 03/07/19 11:40 Urine Protein NEGATIVE mg/dL (NEGATIVE) 03/07/19 11:40 Urine Glucose (UA) NEGATIVE mg/dL (NEGATIVE) 03/07/19 11:40 Urine Ketones NEGATIVE mg/dL (NEGATIVE) 03/07/19 11:40 Urine Occult Blood TRACE-INTA (NEGATIVE) 03/07/19 11:40 Urine Nitrite NEGATIVE (NEGATIVE) 03/07/19 11:40 Urine Bilirubin NEGATIVE (NEGATIVE) 03/07/19 11:40 Urine Urobilinogen 0.2 (NORMAL) E.U./dL (NORMAL) 03/07/19 11:40 Ur Leukocyte Esterase NEGATIVE (NEGATIVE) 03/07/19 11:40 Ur Microscopic Review NOT INDICATED 03/07/19 11:40 Urine Culture Comments NOT INDICATED 03/07/19 11:40 Ethyl Alcohol 8.0 mg/dL 03/07/19 10:20 Sepsis Event Note (H) - Evaluation Current Stage of Sepsis: Ruled out ABX Reporting Has patient been on IV antibiotics over the past 48 hours?: Yes Current Medications - Current Medications Current Medications: Active Medications Acetaminophen (Tylenol) 650 mg PO Q4HR PRN PRN Reason: Pain 1 to 4 Alcohol (Liquor) 50 ml PO 1800 PENDING SALE TO [facility] Last Admin: 03/09/19 17:25 Dose: 50 ml Aspirin (Ecotrin) 81 mg PO DAILY PENDING SALE TO [facility] Last Admin: 03/10/19 08:59 Dose: 81 mg Atorvastatin Calcium (Lipitor) 80 mg PO DAILY [facility]ENDING SALE TO [facility] Last Admin: 03/10/19 08:58 Dose: 80 mg Azithromycin (Zithromax) 250 mg PO DAILY PENDING SALE TO [facility] Stop: 03/13/19 00:00 Last Admin: 03/10/19 08:58 Dose: 250 mg Famotidine (Pepcid) 20 mg PO BID PENDING SALE TO [facility] Last Admin: 03/10/19 08:58 Dose: 20 mg Furosemide (Lasix Inj 20mg Vial) 20 mg IVP BIDDIURETIC PENDING SALE TO [facility] Last Admin: 03/10/19 13:47 Dose: 20 mg Guaifenesin (Mucinex) 600 mg PO BID PENDING SALE TO [facility] Last Admin: 03/10/19 08:58 Dose: 600 mg Heparin Sodium (Porcine) () 5,000 unit SUBQ BID PENDING SALE TO [facility] Last Admin: 03/10/19 09:07 Dose: 5,000 unit Ceftriaxone Sodium 2 gm/ (Sodium Chloride) 100 mls @ 200 mls/hr IV DAILY PENDING SALE TO [facility] Last Infusion: 03/10/19 09:28 Dose: Infused Lisinopril (Zestril) 10 mg PO DAILY [facility]END[facility] TO [facility] Last Admin: 03/10/19 08:58 Dose: 10 mg Metoprolol Succinate (Toprol Xl) 50 mg PO BID PENDING SALE TO [facility] Last Admin: 03/10/19 08:58 Dose: 50 mg Mineral Oil (Cavilon) 1 applic TOP PRN PRN PRN Reason: Skin Care Nystatin (Nystop) 1 applic TOP BID PENDING SALE TO [facility] Last Admin: 03/10/19 08:59 Dose: 1 applic Patient Own Med ( Finasteride [ Propecia] 1 Mg) 1 each PO DAILY PENDING SALE TO [facility] Last Admin: 03/10/19 09:04 Dose: Not Given Multivit/Folic Acid/Iron (Trinatal Rx 1) 1 tab PO DAILYWM PENDING SALE TO [facility] Last Admin: 03/10/19 08:58 Dose: 1 tab Prochlorperazine Edisylate (Compazine Inj) 10 mg IVP Q6HR PRN PRN Reason: Nausea / Vomiting Saccharomyces Boulardii (Florastor) 250 mg PO BIDWM PENDING SALE TO [facility] Last Admin: 03/10/19 08:58 Dose: 250 mg Sodium Chloride (Normal Saline Flush 0.9%) 10 ml IVP PRN PRN PRN Reason: NEEDED PER PROVIDER ORDERS Last Admin: 03/09/19 05:39 Dose: 10 ml Sodium Chloride (Normal Saline Flush 0.9%) 10 ml IVP 0100,0900,1700 PENDING SALE TO [facility] Last Admin: 03/10/19 13:43 Dose: 10 ml Tamsulosin HCl (Flomax) 0.4 mg PO DAILY PENDING SALE TO [facility] Last Admin: 03/10/19 08:59 Dose: 0.4 mg Thiamine HCl (Vitamin B-1) 100 mg PO DAILY PENDING SALE TO [facility] Last Admin: 03/10/19 08:58 Dose: 100 mg Aspirin [Aspir 81] 81 mg PO DAILY 11/22/13 Atorvastatin Calcium 80 mg PO DAILY 11/22/13 Lisinopril 40 mg PO DAILY 11/22/13 Tamsulosin HCl [Flomax] 0.4 mg PO DAILY 11/22/13 Finasteride [Propecia] 1 mg PO DAILY 04/26/17 Metoprolol Succinate 50 mg PO DAILY 03/07/19
[2019-03-10] MEDS: LIQUOR 50 ML BOTTLE PO SCH (18:51)
[2019-03-10] MEDS ORDERED: ALBUTEROL NEB 2.5 MG/3 ML INH PRN (23:30)
[2019-03-11 05:29] LABS: BASOPHILS # (AUTO) 0.1 10^3/uL (0.0-0.1); BASOPHILS % (AUTO) 1.4 %; EOSINOPHILS # (AUTO) 0.2 10^3/uL (0.0-0.7); EOSINOPHILS % (AUTO) 3.2 %; HGB - HEMOGLOBIN 12.9 g/dL (14.0-18.0); LYMPHOCYTES # (AUTO) 1.4 10^3/uL (1.5-3.5); LYMPHOCYTES % (AUTO) 25.8 %; MEAN CORPUSCULAR HEMOGLOBIN 29.3 pg (27.0-31.0); MEAN CORPUSCULAR HGB CONC 30.6 g/dL (32.0-36.0); MEAN CORPUSCULAR VOLUME 95.5 fL (80.0-94.0); MEAN PLATELET VOLUME 9.9 fL (7.4-11.4); MONOCYTES # (AUTO) 0.6 10^3/uL (0.0-1.0); MONOCYTES % (AUTO) 10.4 %; NEUTROPHILS # (AUTO) 3.3 10^3/uL (1.5-6.6); NEUTROPHILS % (AUTO) 58.8 %; PLT - PLATELET COUNT 157 10^3/uL (130-450); RED BLOOD COUNT 4.41 10^6/uL (4.70-6.10); RED CELL DISTRIBUTION WIDTH 13.1 % (12.0-15.0); WHITE BLOOD COUNT 5.6 x10^3/uL (4.8-10.8)
[2019-03-11 05:41] LABS: CALCIUM 9.1 mg/dL (8.5-10.3); CREATININE 0.9 mg/dL (0.6-1.2)
[2019-03-11] MEDS: SODIUM CHLORIDE FLUSH 0.9% 10 ML SYRINGE IVP SCH ×3 (07:00→17:12)
[2019-03-11] MEDS: FUROSEMIDE 20 MG TABLET PO SCH ×2 (07:00→13:17)
[2019-03-11] MEDS: guaiFENesin 600 MG TABLET PO SCH ×2 (08:49→20:26)
[2019-03-11] MEDS: FAMOTIDINE 20 MG TABLET PO SCH ×2 (08:49→20:28)
[2019-03-11] MEDS: LISINOPRIL 5 MG TABLET PO SCH (08:50)
[2019-03-11] MEDS: AZITHROMYCIN 250 MG TABLET PO SCH (08:50)
[2019-03-11] MEDS: THIAMINE 100 MG TABLET PO SCH (08:50)
[2019-03-11] MEDS: ASPIRIN EC 81 MG TABLET PO SCH (08:50)
[2019-03-11] MEDS: METOPROLOL SUCCINATE 25 MG TABLET PO SCH ×2 (08:50→20:32)
[2019-03-11] MEDS: FINASTERIDE 1 MG PO SCH (08:51)
[2019-03-11] MEDS: SACCHAROMYCES BOULARDII 250 MG CAPSULE PO SCH ×2 (08:51→17:12)
[2019-03-11] MEDS: NYSTATIN POWDER 15 GM TOP SCH ×2 (08:51→19:59)
[2019-03-11] MEDS: ATORVASTATIN 40 MG TABLET PO SCH (08:51)
[2019-03-11] MEDS: PRENATAL VITAMIN TABLET PO SCH (08:51)
[2019-03-11] MEDS: TAMSULOSIN 0.4 MG CAPSULE PO SCH (08:54)
[2019-03-11] MEDS: cefTRIAXone 2 GM in SODIUM CHLORIDE 0.9% MINIBAG 100 ML IV SCH (08:54)
[2019-03-11] MEDS: HEPARIN 5,000 UNIT/ML VIAL SUBQ SCH ×2 (08:58→20:32)
--- NOTE | 2019-03-11 11:22 | PROVIDER PROGRESS NOTE ---
Assessment/Plan - Problem List (1) Delirium Assessment/Plan: pt became confused on last night, still confused at today morning. pt has alcoholic usage disorder, and prescribed Vodka. R/O any other acute causes, order CT of head, order of B12, ammonia, troponin. pt denies chest pain. neur check orientation to pt frequently (2) Congestive heart failure 03/11 pt's BNP is slightly down, pt's breath is stable. pt has 93% sat on 1 liter of O2 continue PO lasix, daily lab monitor, tele and vital monitor continue fluid restriction, daily weight (3) CAP (community acquired pneumonia) Assessment/Plan: continue Ceftriaxone and, switch to PO Zitthromax, and Mucinex for pulmonary toilet Blood cx are ntd (4) Pleural effusion Assessment/Plan: pt's breath is stable. pt will not be considered thoracentesis now, followup data analytics chief scientist or intervention radiologist as out-pt for thoracentesis as needed. (5) Atrial fibrillation HR is under better control with rising dose of Metoprolol, will continue same dosage of metoprolol Daily ASA for stroke prophylaxis, no anticoagulation due to hx of subarrachnoid hemorrhage continue tele monitor (6) Alcohol use disorder Assessment/Plan: pt is stable, pt is on a CIWA protocol, got low dose Librium and gets 50cc of vodka with dinner ordered here. He cannot remember some past details in his Hx of alcoholism, is very tangential when he speaks, making the possibility of Wernicke-Korsakoff syndrome a possibility. He is on daily po Thiamone here. pt may discharge with po B1 (7) HTN (hypertension) Assessment/Plan: BP controlled on current meds (8) BPH (benign prostatic hyperplasia) Assessment/Plan: Home meds were ordered (9) Lymphedema of both lower extremities Assessment/Plan: Chronic and severe, he apparently has a home boot he wears pt's pit edema is improved on bilateral lower extremities. pt is ordered home health PT per PT's recommendation, and home health RN for his skin care (10) Hx of coronary artery disease Assessment/Plan: advise pt to have outpatient f/u with PCP or CArdiology after Dch, to determine if he needs W/U for worsening of CAD (11) generalized weakness nurse report pt has high risk of fall, and weakness. order PT/OT, will followup recommendations. - Current Meds Current Meds: Current Medications Generic Name Dose Route Start Last Admin Trade Name Nayana PRN Reason Stop Dose Admin Alcohol 50 ml 03/08/19 18:00 03/10/19 18:51 Liquor PO 50 ml 1800 HERLINDA Administration Aspirin 81 mg 03/10/19 09:00 03/11/19 08:50 Ecotrin PO 81 mg DAILY HERLINDA Administration Atorvastatin Calcium 80 mg 03/10/19 09:00 03/11/19 08:51 Lipitor PO 80 mg DAILY HERLINDA Administration Azithromycin 250 mg 03/09/19 09:00 03/11/19 08:50 Zithromax PO 03/13/19 00:00 250 mg DAILY HERLINDA Administration Famotidine 20 mg 03/07/19 21:00 03/11/19 08:49 Pepcid PO 20 mg BID HERLINDA Administration Furosemide 20 mg 03/11/19 06:00 03/11/19 07:00 Lasix PO 20 mg BIDDIURETIC HERLINDA Administration Guaifenesin 600 mg 03/08/19 09:00 03/11/19 08:49 Mucinex PO 600 mg BID HERLINDA Administration Heparin Sodium (Porcine) 5,000 unit 03/07/19 21:00 03/11/19 08:58 SUBQ 5,000 unit BID HERLINDA Administration Ceftriaxone Sodium 2 gm/ 100 mls @ 200 mls/hr 03/08/19 09:00 03/11/19 09:24 Sodium Chloride IV Infused DAILY HERLINDA Infusion Lisinopril 10 mg 03/10/19 09:00 03/11/19 08:50 Zestril PO 10 mg DAILY HERLINDA Administration Metoprolol Succinate 50 mg 03/08/19 09:00 03/11/19 08:50 Toprol Xl PO 50 mg BID HERLINDA Administration Nystatin 1 applic 03/07/19 23:45 03/11/19 08:51 Nystop TOP 1 applic BID HERLINDA Administration Patient Own Med ( 1 each 03/10/19 09:00 03/11/19 08:51 Finasteride [ PO Not Given Propecia] 1 Mg) DAILY HERLINDA Multivit/Folic Acid/Iron 1 tab 03/09/19 16:00 03/11/19 08:51 Trinatal Rx 1 PO 1 tab DAILYWM HERLINDA Administration Saccharomyces Boulardii 250 mg 03/08/19 09:00 03/11/19 08:51 Florastor PO 250 mg BIDWM HERLINDA Administration Sodium Chloride 10 ml 03/07/19 15:27 03/09/19 05:39 Normal Saline Flush 0.9% IVP 10 ml PRN PRN Administration NEEDED PER PROVIDER ORDERS Sodium Chloride 10 ml 03/07/19 17:00 03/11/19 08:51 Normal Saline Flush 0.9% IVP 10 ml 0100,0900,1700 HERLINDA Administration Tamsulosin HCl 0.4 mg 03/10/19 09:00 03/11/19 08:54 Flomax PO 0.4 mg DAILY HERLINDA Administration Thiamine HCl 100 mg 03/07/19 17:00 03/11/19 08:50 Vitamin B-1 PO 100 mg DAILY HERLINDA Administration - Lab Result Fish Bone Diagrams: 03/11/19 05:00 03/11/19 05:00 - Additional Planning My Orders: My Active Orders 03/10/19 10:41 Fluid Restriction [RC] ONCE 03/11/19 06:00 Furosemide [Lasix] 20 mg PO BIDDIURETIC 03/11/19 10:25 HEAD WO [CT] Routine 03/11/19 11:00 TROPONIN I HIGH SENSITIVITY [IAI] Stat 03/12/19 05:00 BMP - BASIC METABOLIC PANEL [CHEM] DAILYLAB BNP - B-NATRIURETIC PEPTIDE [IAI] DAILYLAB CBC - COMP BLD CT W/AUTO DIFF [HEME] DAILYLAB 03/13/19 05:00 BMP - BASIC METABOLIC PANEL [CHEM] DAILYLAB BNP - B-NATRIURETIC PEPTIDE [IAI] DAILYLAB CBC - COMP BLD CT W/AUTO DIFF [HEME] DAILYLAB 03/14/19 05:00 BMP - BASIC METABOLIC PANEL [CHEM] DAILYLAB BNP - B-NATRIURETIC PEPTIDE [IAI] DAILYLAB CBC - COMP BLD CT W/AUTO DIFF [HEME] DAILYLAB 03/15/19 05:00 BNP - B-NATRIURETIC PEPTIDE [IAI] DAILYLAB Subjective - Subjective Nursing Reports: Confused Objective Vital Signs: Vital Signs - 24 hr 03/10/19 03/10/19 03/10/19 13:00 16:13 20:33 Temperature 35.1 C L 36.3 C L 36.0 C L Heart Rate [ 57 L 67 76 Brachial] Respiratory 24 24 Rate Blood Pressure 119/74 133/81 H 146/87 H [Right Brachial artery] O2 Saturation 95 95 92 03/10/19 03/11/19 03/11/19 23:42 05:00 07:52 Temperature 36.2 C L 36.2 C L 36.2 C L Heart Rate [ 61 83 70 Brachial] Respiratory 20 20 18 Rate Blood Pressure 112/84 H 127/94 H 149/86 H [Right Brachial artery] O2 Saturation 96 93 94 Oxygen O2 Source [With Activity] 1L via nc O2 Source [Without Activity] Room air O2 Source Nasal cannula I&O (Last 24 Hrs): Intake and Output Totals x24h 03/09/19 03/10/19 03/11/19 23:59 23:59 23:59 Intake Total 1280 720 340 Output Total 2800 1700 Balance -1520 -980 340 General: Alert, Cooperative, No acute distress HEENT: Atraumatic Neck: Supple Lymphatic: no adenopathy Neuro: Alert, Disoriented, Non Focal Cardiovascular: Regular rate, Normal S1, Normal S2 Respiratory: Chest non-tender, No respiratory distress Abdomen: Normal bowel sounds, Soft, No tenderness - Results Results: Laboratory Results WBC 5.6 x10^3/uL (4.8-10.8) 03/11/19 05:00 RBC 4.41 10^6/uL (4.70-6.10) L 03/11/19 05:00 Hgb 12.9 g/dL (14.0-18.0) L 03/11/19 05:00 Hct 42.1 % (42.0-52.0) 03/11/19 05:00 MCV 95.5 fL (80.0-94.0) H 03/11/19 05:00 MCH 29.3 pg (27.0-31.0) 03/11/19 05:00 MCHC 30.6 g/dL (32.0-36.0) L 03/11/19 05:00 RDW 13.1 % (12.0-15.0) 03/11/19 05:00 Plt Count 157 10^3/uL (130-450) 03/11/19 05:00 MPV 9.9 fL (7.4-11.4) 03/11/19 05:00 Neut # (Auto) 3.3 10^3/uL (1.5-6.6) 03/11/19 05:00 Lymph # (Auto) 1.4 10^3/uL (1.5-3.5) L 03/11/19 05:00 [place] # (Auto) 0.6 10^3/uL (0.0-1.0) 03/11/19 05:00 Eos # (Auto) 0.2 10^3/uL (0.0-0.7) 03/11/19 05:00 Baso # (Auto) 0.1 10^3/uL (0.0-0.1) 03/11/19 05:00 Absolute Nucleated RBC 0.00 x10^3/uL 03/11/19 05:00 Nucleated RBC % 0.0 /100WBC 03/11/19 05:00 PT 12.9 secs (9.9-12.6) H 03/07/19 10:20 INR 1.1 (0.8-1.2) 03/07/19 10:20 Sodium 139 mmol/L (135-145) 03/11/19 05:00 Potassium 3.7 mmol/L (3.5-5.0) 03/11/19 05:00 Chloride 101 mmol/L (101-111) 03/11/19 05:00 Carbon Dioxide 30 mmol/L (21-32) 03/11/19 05:00 Anion Gap 8.0 (6-13) 03/11/19 05:00 BUN 20 mg/dL (6-20) 03/11/19 05:00 Creatinine 0.9 mg/dL (0.6-1.2) 03/11/19 05:00 Estimated GFR (MDRD) 80 (>89) L 03/11/19 05:00 Glucose 130 mg/dL (70-100) H 03/11/19 05:00 Calcium 9.1 mg/dL (8.5-10.3) 03/11/19 05:00 Magnesium 1.8 mg/dL (1.7-2.8) 03/09/19 05:11 Total Bilirubin 0.6 mg/dL (0.2-1.0) 03/07/19 10:20 AST 21 IU/L (10-42) 03/07/19 10:20 ALT 19 IU/L (10-60) 03/07/19 10:20 Alkaline Phosphatase 66 IU/L (42-121) 03/07/19 10:20 Ammonia 28.5 umol/L (7-35) 03/11/19 07:50 Troponin I High Sens 17.6 ng/L (2.3-19.7) 03/07/19 15:53 B-Natriuretic Peptide 268 pg/mL (5-100) H 03/11/19 07:50 Total Protein 7.1 g/dL (6.7-8.2) 03/07/19 10:20 Albumin 3.9 g/dL (3.2-5.5) 03/07/19 10:20 Globulin 3.2 g/dL (2.1-4.2) 03/07/19 10:20 Albumin/Globulin Ratio 1.2 (1.0-2.2) 03/07/19 10:20 Lipase 25 U/L (22-51) 03/07/19 10:20 Vitamin B12 372 pg/mL (180-914) 03/11/19 07:50 TSH 2.39 uIU/mL (0.34-5.60) 03/08/19 06:10 Urine Color YELLOW 03/07/19 11:40 Urine Clarity CLEAR (CLEAR) 03/07/19 11:40 Urine pH 5.5 PH (5.0-7.5) 03/07/19 11:40 Ur Specific [place] 1.015 (1.002-1.030) 03/07/19 11:40 Urine Protein NEGATIVE mg/dL (NEGATIVE) 03/07/19 11:40 Urine Glucose (UA) NEGATIVE mg/dL (NEGATIVE) 03/07/19 11:40 Urine Ketones NEGATIVE mg/dL (NEGATIVE) 03/07/19 11:40 Urine Occult Blood TRACE-INTA (NEGATIVE) 03/07/19 11:40 Urine Nitrite NEGATIVE (NEGATIVE) 03/07/19 11:40 Urine Bilirubin NEGATIVE (NEGATIVE) 03/07/19 11:40 Urine Urobilinogen 0.2 (NORMAL) E.U./dL (NORMAL) 03/07/19 11:40 Ur Leukocyte Esterase NEGATIVE (NEGATIVE) 03/07/19 11:40 Ur Microscopic Review NOT INDICATED 03/07/19 11:40 Urine Culture Comments NOT INDICATED 03/07/19 11:40 Ethyl Alcohol 8.0 mg/dL 03/07/19 10:20 Sepsis Event Note (H) - Evaluation Current Stage of Sepsis: Ruled out ABX Reporting Has patient been on IV antibiotics over the past 48 hours?: Yes Current Medications - Current Medications Current Medications: Active Medications Acetaminophen (Tylenol) 650 mg PO Q4HR PRN PRN Reason: Pain 1 to 4 Albuterol () 2.5 mg INH RTQ4H PRN PRN Reason: Wheezing Alcohol (Liquor) 50 ml PO 1800 [facility] Last Admin: 03/10/19 18:51 Dose: 50 ml Aspirin (Ecotrin) 81 mg PO DAILY [facility] Last Admin: 03/11/19 08:50 Dose: 81 mg Atorvastatin Calcium (Lipitor) 80 mg PO DAILY [facility] Last Admin: 03/11/19 08:51 Dose: 80 mg Azithromycin (Zithromax) 250 mg PO DAILY [facility] Stop: 03/13/19 00:00 Last Admin: 03/11/19 08:50 Dose: 250 mg Famotidine (Pepcid) 20 mg PO BID [facility] Last Admin: 03/11/19 08:49 Dose: 20 mg Furosemide (Lasix) 20 mg PO BIDDIURETIC [facility] Last Admin: 03/11/19 07:00 Dose: 20 mg Guaifenesin (Mucinex) 600 mg PO BID [facility] Last Admin: 03/11/19 08:49 Dose: 600 mg Heparin Sodium (Porcine) () 5,000 unit SUBQ BID [facility] Last Admin: 03/11/19 08:58 Dose: 5,000 unit Ceftriaxone Sodium 2 gm/ (Sodium Chloride) 100 mls @ 200 mls/hr IV DAILY [facility] Last Infusion: 03/11/19 09:24 Dose: Infused Lisinopril (Zestril) 10 mg PO DAILY [facility] Last Admin: 03/11/19 08:50 Dose: 10 mg Metoprolol Succinate (Toprol Xl) 50 mg PO BID [facility] Last Admin: 03/11/19 08:50 Dose: 50 mg Mineral Oil (Cavilon) 1 applic TOP PRN PRN PRN Reason: Skin Care Nystatin (Nystop) 1 applic TOP BID [facility] Last Admin: 03/11/19 08:51 Dose: 1 applic Patient Own Med ( Finasteride [ Propecia] 1 Mg) 1 each PO DAILY [facility] Last Admin: 03/11/19 08:51 Dose: Not Given Multivit/Folic Acid/Iron (Trinatal Rx 1) 1 tab PO DAILYWM [facility] Last Admin: 03/11/19 08:51 Dose: 1 tab Prochlorperazine Edisylate (Compazine Inj) 10 mg IVP Q6HR PRN PRN Reason: Nausea / Vomiting Saccharomyces Boulardii (Florastor) 250 mg PO BIDWM [facility] Last Admin: 03/11/19 08:51 Dose: 250 mg Sodium Chloride (Normal Saline Flush 0.9%) 10 ml IVP PRN PRN PRN Reason: NEEDED PER PROVIDER ORDERS Last Admin: 03/09/19 05:39 Dose: 10 ml Sodium Chloride (Normal Saline Flush 0.9%) 10 ml IVP 0100,0900,1700 [facility] Last Admin: 03/11/19 08:51 Dose: 10 ml Tamsulosin HCl (Flomax) 0.4 mg PO DAILY [facility] Last Admin: 03/11/19 08:54 Dose: 0.4 mg Thiamine HCl (Vitamin B-1) 100 mg PO DAILY [facility] Last Admin: 03/11/19 08:50 Dose: 100 mg Aspirin [Aspir 81] 81 mg PO DAILY 11/22/13 Atorvastatin Calcium 80 mg PO DAILY 11/22/13 Lisinopril 40 mg PO DAILY 11/22/13 Tamsulosin HCl [Flomax] 0.4 mg PO DAILY 11/22/13 Finasteride [Propecia] 1 mg PO DAILY 04/26/17 Metoprolol Succinate 50 mg PO DAILY 03/07/19
--- NOTE | 2019-03-11 14:17 | CT Report ---
Reason: acute delirium Procedure Date: 03/11/2019 Accession Number: [id number] / [id number] Procedure: CT - HEAD WO CPT Code: Final Report FULL RESULT: EXAM: CT HEAD EXAM DATE: 03/11/2019 12:34 PM. CLINICAL HISTORY: Acute delirium. COMPARISON: HEAD W/O 02/05/2017 12:23 PM. TECHNIQUE: Multiaxial CT images were obtained from the foramen magnum to the vertex. Reformats: Sagittal and coronal. IV contrast: None. In accordance with CT protocol optimization, one or more of the following dose reduction techniques were utilized for this exam: automated exposure control, adjustment of mA and/or KV based on patient size, or use of iterative reconstructive technique. FINDINGS: Parenchyma: No acute intracranial hemorrhage or midline shift. No mass effect. Stable moderate and symmetric cortical atrophic changes. Periventricular white matter changes, consistent with chronic ischemic small vessel disease. Sinuses and Orbits: Imaged portion of the facial sinuses appear clear. Postoperative changes of the right globe as before. 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 Bones: No evidence of fracture or calvarial defect. Other: None. IMPRESSION: No acute intracranial hemorrhage or mass effect detected. RADIA
[2019-03-11] MEDS: LIQUOR 50 ML BOTTLE PO SCH (18:58)
[2019-03-12] MEDS: SODIUM CHLORIDE FLUSH 0.9% 10 ML SYRINGE IVP SCH ×3 (00:21→17:18)
[2019-03-12] MEDS: FUROSEMIDE 20 MG TABLET PO SCH ×2 (06:12→14:12)
[2019-03-12 06:36] LABS: BASOPHILS # (AUTO) 0.1 10^3/uL (0.0-0.1); EOSINOPHILS # (AUTO) 0.3 10^3/uL (0.0-0.7); EOSINOPHILS % (AUTO) 4.5 %; HGB - HEMOGLOBIN 12.8 g/dL (14.0-18.0); LYMPHOCYTES # (AUTO) 1.4 10^3/uL (1.5-3.5); LYMPHOCYTES % (AUTO) 23.6 %; MEAN CORPUSCULAR HEMOGLOBIN 30.4 pg (27.0-31.0); MEAN CORPUSCULAR HGB CONC 31.2 g/dL (32.0-36.0); MEAN CORPUSCULAR VOLUME 97.4 fL (80.0-94.0); MONOCYTES # (AUTO) 0.7 10^3/uL (0.0-1.0); MONOCYTES % (AUTO) 11.5 %; NEUTROPHILS # (AUTO) 3.6 10^3/uL (1.5-6.6); NEUTROPHILS % (AUTO) 59.1 %; PLT - PLATELET COUNT 150 10^3/uL (130-450); RED BLOOD COUNT 4.21 10^6/uL (4.70-6.10)
[2019-03-12 06:47] LABS: CREATININE 0.9 mg/dL (0.6-1.2)
[2019-03-12] MEDS: cefTRIAXone 2 GM in SODIUM CHLORIDE 0.9% MINIBAG 100 ML IV SCH (08:57)
[2019-03-12] MEDS: THIAMINE 100 MG TABLET PO SCH (08:57)
[2019-03-12] MEDS: PRENATAL VITAMIN TABLET PO SCH (08:57)
[2019-03-12] MEDS: ASPIRIN EC 81 MG TABLET PO SCH (08:57)
[2019-03-12] MEDS: AZITHROMYCIN 250 MG TABLET PO SCH (08:57)
[2019-03-12] MEDS: TAMSULOSIN 0.4 MG CAPSULE PO SCH (08:57)
[2019-03-12] MEDS: guaiFENesin 600 MG TABLET PO SCH ×2 (08:57→20:29)
[2019-03-12] MEDS: SACCHAROMYCES BOULARDII 250 MG CAPSULE PO SCH ×2 (08:57→17:17)
[2019-03-12] MEDS: FAMOTIDINE 20 MG TABLET PO SCH ×2 (08:58→20:30)
[2019-03-12] MEDS: ATORVASTATIN 40 MG TABLET PO SCH (08:58)
[2019-03-12] MEDS: LISINOPRIL 5 MG TABLET PO SCH (08:58)
[2019-03-12] MEDS: FINASTERIDE 1 MG PO SCH (08:58)
[2019-03-12] MEDS: NYSTATIN POWDER 15 GM TOP SCH ×2 (08:58→20:30)
[2019-03-12] MEDS: METOPROLOL SUCCINATE 25 MG TABLET PO SCH ×2 (08:58→20:29)
[2019-03-12] MEDS: HEPARIN 5,000 UNIT/ML VIAL SUBQ SCH ×2 (09:17→20:25)
[2019-03-12] MEDS ORDERED: IPRATROPIUM/ALBUTEROL 3 ML NEB INH PRN (11:52)
--- NOTE | 2019-03-12 11:56 | PROVIDER PROGRESS NOTE ---
Assessment/Plan - Problem List (1) Wheezing on both sides of chest Assessment/Plan: pt present bilateral wheezing and mild respiratory distress now. CXR is ordered and will followup. pt might need lower dosage of steroid after review of his new CXR. order breath treatment for pt. pt has been on Lasix for his CHF. plan: CXR is pending, continue breath treatment, might add lower dosage of steroid for short time for his wheezing, continue Lasix. (2) Delirium Assessment/Plan: resolved today. pt had negative CT of head without acute findings (3) Congestive heart failure 03/12 nurse reported on last night pt had significant reduced urine output but today morning nurse report had 300 cc urine in bladder scan and had one urination at the morning. Hold fluid restriction now continue Lasix continue daily weight, Metoprolol, and Lisinopril continue tele and vital monitor (4) CAP (community acquired pneumonia) Assessment/Plan: continue Ceftriaxone and, switch to PO Zitthromax, and Mucinex for pulmonary toilet Blood cx are ntd (5) Pleural effusion Assessment/Plan: pt's breath is stable. pt will not be considered thoracentesis now, followup talent sourcer or intervention radiologist as out-pt for thoracentesis as needed. (6) Atrial fibrillation HR is under better control with rising dose of Metoprolol, will continue same d [place] of metoprolol Daily ASA for stroke prophylaxis, no anticoagulation due to hx of subarrachnoid hemorrhage continue tele monitor (7) Alcohol use disorder Assessment/Plan: pt is stable, pt is on a CIWA protocol, got low dose Librium and gets 50cc of vodka with dinner ordered here. He cannot remember some past details in his Hx of alcoholism, is very tangential when he speaks, making the possibility of Wernicke-Korsakoff syndrome a possibility. He is on daily po Thiamone here. pt may discharge with po B1 (8) HTN (hypertension) Assessment/Plan: BP controlled on current meds (9) BPH (benign prostatic hyperplasia) Assessment/Plan: Home meds were ordered (10) Lymphedema of both lower extremities Assessment/Plan: Chronic and severe, he apparently has a home boot he wears pt's pit edema is improved on bilateral lower extremities. pt is ordered home health PT per PT's recommendation, and home health RN for his skin care (11) Hx of coronary artery disease Assessment/Plan: advise pt to have outpatient f/u with PCP or CArdiology after Dch, to determine if he needs W/U for worsening of CAD (12) generalized weakness nurse report pt has high risk of fall, and weakness. order PT/OT, will followup recommendations. - Current Meds Current Meds: Current Medications Generic Name Dose Route Start Last Admin Trade Name Freq PRN Reason Stop Dose Admin Albuterol 2.5 mg 03/10/19 23:30 03/12/19 08:18 INH 2.5 mg RTQ4H PRN Administration Wheezing Alcohol 50 ml 03/08/19 18:00 03/11/19 18:58 Liquor PO 50 ml 1800 HERLINDA Administration Aspirin 81 mg 03/10/19 09:00 03/12/19 08:57 Ecotrin PO 81 mg DAILY HERLINDA Administration Atorvastatin Calcium 80 mg 03/10/19 09:00 03/12/19 08:58 Lipitor PO 80 mg DAILY HERLINDA Administration Azithromycin 250 mg 03/09/19 09:00 03/12/19 08:57 Zithromax PO 03/13/19 00:00 250 mg DAILY HERLINDA Administration Famotidine 20 mg 03/07/19 21:00 03/12/19 08:58 Pepcid PO 20 mg BID HERLINDA Administration Furosemide 20 mg 03/11/19 06:00 03/12/19 06:12 Lasix PO 20 mg BIDDIURETIC HERLINDA Administration Guaifenesin 600 mg 03/08/19 09:00 03/12/19 08:57 Mucinex PO 600 mg BID HERLINDA Administration Heparin Sodium (Porcine) 5,000 unit 03/07/19 21:00 03/12/19 09:17 SUBQ 5,000 unit BID HERLINDA Administration Ceftriaxone Sodium 2 gm/ 100 mls @ 200 mls/hr 03/08/19 09:00 03/12/19 09:35 Sodium Chloride IV Infused DAILY HERLINDA Infusion Lisinopril 10 mg 03/10/19 09:00 03/12/19 08:58 Zestril PO 10 mg DAILY HERLINDA Administration Metoprolol Succinate 50 mg 03/08/19 09:00 03/12/19 08:58 Toprol Xl PO 50 mg BID HERLINDA Administration Mineral Oil 1 applic 03/09/19 06:37 03/11/19 23:23 Cavilon TOP 1 applic PRN PRN Administration Skin Care Nystatin 1 applic 03/07/19 23:45 03/12/19 08:58 Nystop TOP 1 applic BID HERLINDA Administration Patient Own Med ( 1 each 03/10/19 09:00 03/12/19 08:58 Finasteride [ PO Not Given Propecia] 1 Mg) DAILY HERLINDA Multivit/Folic Acid/Iron 1 tab 03/09/19 16:00 03/12/19 08:57 Trinatal Rx 1 PO 1 tab DAILYWM HERLINDA Administration Saccharomyces Boulardii 250 mg 03/08/19 09:00 03/12/19 08:57 Florastor PO 250 mg BIDWM HERLINDA Administration Sodium Chloride 10 ml 03/07/19 15:27 03/09/19 05:39 Normal Saline Flush 0.9% IVP 10 ml PRN PRN Administration NEEDED PER PROVIDER ORDERS Sodium Chloride 10 ml 03/07/19 17:00 03/12/19 08:59 Normal Saline Flush 0.9% IVP 10 ml 0100,0900,1700 HERLINDA Administration Tamsulosin HCl 0.4 mg 03/10/19 09:00 03/12/19 08:57 Flomax PO 0.4 mg DAILY HERLINDA Administration Thiamine HCl 100 mg 03/07/19 17:00 03/12/19 08:57 Vitamin B-1 PO 100 mg DAILY HERLINDA Administration - Lab Result Fish Bone Diagrams: 03/12/19 06:24 03/12/19 06:24 - Additional Planning My Orders: My Active Orders 03/11/19 11:26 Neuro Check [RC] QSHIFT 03/12/19 07:38 Fluid Restriction Discontinuat [RC] .ONCE 03/12/19 10:07 Chest 1 View X-Ray [XR] Routine 03/12/19 11:52 Nebulizer/MDI Tx. [RC] QID Resp Teach Nebulizer/MDI [RC] .ONCE Ipratropium/Albuterol [Duoneb] 3 ml INH RTQID PRN 03/12/19 Breakfast Low Sodium Diet [DIET] 03/13/19 05:00 BMP - BASIC METABOLIC PANEL [CHEM] DAILYLAB CBC - COMP BLD CT W/AUTO DIFF [HEME] DAILYLAB 03/14/19 05:00 BMP - BASIC METABOLIC PANEL [CHEM] DAILYLAB CBC - COMP BLD CT W/AUTO DIFF [HEME] DAILYLAB Subjective - Subjective Patient Reports: Feeling Better Objective Vital Signs: Vital Signs - 24 hr 03/11/19 03/11/19 03/11/19 13:00 15:42 20:47 Temperature 36.6 C 36.6 C 36.6 C Heart Rate Heart Rate [ 84 93 96 Brachial] Respiratory 20 20 22 Rate Blood Pressure 113/78 107/88 H 129/63 [Right Brachial artery] O2 Saturation 97 95 95 03/11/19 03/12/19 03/12/19 22:20 00:02 04:28 Temperature 36.3 C L 36.2 C L Heart Rate 60 Heart Rate [ 89 71 Brachial] Respiratory 18 18 18 Rate Blood Pressure 133/90 H 116/75 [Right Brachial artery] O2 Saturation 93 96 03/12/19 03/12/19 03/12/19 07:30 08:19 08:54 Temperature 36.2 C L Heart Rate 86 Heart Rate [ 83 Brachial] Respiratory 18 18 20 Rate Blood Pressure 144/81 H [Right Brachial artery] O2 Saturation 95 91 L 03/12/19 03/12/19 08:55 10:48 Temperature Heart Rate Heart Rate [ 82 Brachial] Respiratory Rate Blood Pressure [Right Brachial artery] O2 Saturation 92 97 Oxygen O2 Source [With Activity] 1L via nc O2 Source [Without Activity] Room air O2 Source Room air I&O (Last 24 Hrs): Intake and Output Totals x24h 03/10/19 03/11/19 03/12/19 23:59 23:59 23:59 Intake Total 720 920 400 Output Total 1700 Balance -980 920 400 General: Alert, No acute distress HEENT: Atraumatic, PERRLA, EOMI Neck: Supple Lymphatic: no adenopathy Neuro: Alert, Non Focal Cardiovascular: Regular rate, Normal S1, Normal S2 Respiratory: Chest non-tender, Wheezes Abdomen: Normal bowel sounds, Soft - Results Results: Laboratory Results WBC 6.0 x10^3/uL (4.8-10.8) 03/12/19 06:24 RBC 4.21 10^6/uL (4.70-6.10) L 03/12/19 06:24 Hgb 12.8 g/dL (14.0-18.0) L 03/12/19 06:24 Hct 41.0 % (42.0-52.0) L 03/12/19 06:24 MCV 97.4 fL (80.0-94.0) H 03/12/19 06:24 MCH 30.4 pg (27.0-31.0) 03/12/19 06:24 MCHC 31.2 g/dL (32.0-36.0) L 03/12/19 06:24 RDW 13.0 % (12.0-15.0) 03/12/19 06:24 Plt Count 150 10^3/uL (130-450) 03/12/19 06:24 MPV 10.0 fL (7.4-11.4) 03/12/19 06:24 Neut # (Auto) 3.6 10^3/uL (1.5-6.6) 03/12/19 06:24 Lymph # (Auto) 1.4 10^3/uL (1.5-3.5) L 03/12/19 06:24 Parke # (Auto) 0.7 10^3/uL (0.0-1.0) 03/12/19 06:24 Eos # (Auto) 0.3 10^3/uL (0.0-0.7) 03/12/19 06:24 Baso # (Auto) 0.1 10^3/uL (0.0-0.1) 03/12/19 06:24 Absolute Nucleated RBC 0.00 x10^3/uL 03/12/19 06:24 Nucleated RBC % 0.0 /100WBC 03/12/19 06:24 PT 12.9 secs (9.9-12.6) H 03/07/19 10:20 INR 1.1 (0.8-1.2) 03/07/19 10:20 Sodium 139 mmol/L (135-145) 03/12/19 06:24 Potassium 3.7 mmol/L (3.5-5.0) 03/12/19 06:24 Chloride 99 mmol/L (101-111) L 03/12/19 06:24 Carbon Dioxide 32 mmol/L (21-32) 03/12/19 06:24 Anion Gap 8.0 (6-13) 03/12/19 06:24 BUN 18 mg/dL (6-20) 03/12/19 06:24 Creatinine 0.9 mg/dL (0.6-1.2) 03/12/19 06:24 Estimated GFR (MDRD) 80 (>89) L 03/12/19 06:24 Glucose 122 mg/dL (70-100) H 03/12/19 06:24 Calcium 9.0 mg/dL (8.5-10.3) 03/12/19 06:24 Magnesium 1.8 mg/dL (1.7-2.8) 03/09/19 05:11 Total Bilirubin 0.6 mg/dL (0.2-1.0) 03/07/19 10:20 AST 21 IU/L (10-42) 03/07/19 10:20 ALT 19 IU/L (10-60) 03/07/19 10:20 Alkaline Phosphatase 66 IU/L (42-121) 03/07/19 10:20 Ammonia 28.5 umol/L (7-35) 03/11/19 07:50 Troponin I High Sens 16.4 ng/L (2.3-19.7) 03/11/19 11:00 B-Natriuretic Peptide 249 pg/mL (5-100) H 03/12/19 06:24 Total Protein 7.1 g/dL (6.7-8.2) 03/07/19 10:20 Albumin 3.9 g/dL (3.2-5.5) 03/07/19 10:20 Globulin 3.2 g/dL (2.1-4.2) 03/07/19 10:20 Albumin/Globulin Ratio 1.2 (1.0-2.2) 03/07/19 10:20 Lipase 25 U/L (22-51) 03/07/19 10:20 Vitamin B12 372 pg/mL (180-914) 03/11/19 07:50 TSH 2.39 uIU/mL (0.34-5.60) 03/08/19 06:10 Urine Color YELLOW 03/07/19 11:40 Urine Clarity CLEAR (CLEAR) 03/07/19 11:40 Urine pH 5.5 PH (5.0-7.5) 03/07/19 11:40 Ur Specific [place] 1.015 (1.002-1.030) 03/07/19 11:40 Urine Protein NEGATIVE mg/dL (NEGATIVE) 03/07/19 11:40 Urine Glucose (UA) NEGATIVE mg/dL (NEGATIVE) 03/07/19 11:40 Urine Ketones NEGATIVE mg/dL (NEGATIVE) 03/07/19 11:40 Urine Occult Blood TRACE-INTA (NEGATIVE) 03/07/19 11:40 Urine Nitrite NEGATIVE (NEGATIVE) 03/07/19 11:40 Urine Bilirubin NEGATIVE (NEGATIVE) 03/07/19 11:40 Urine Urobilinogen 0.2 (NORMAL) E.U./dL (NORMAL) 03/07/19 11:40 Ur Leukocyte Esterase NEGATIVE (NEGATIVE) 03/07/19 11:40 Ur Microscopic Review NOT INDICATED 03/07/19 11:40 Urine Culture Comments NOT INDICATED 03/07/19 11:40 Ethyl Alcohol 8.0 mg/dL 03/07/19 10:20 Sepsis Event Note (H) - Evaluation Current Stage of Sepsis: Ruled out ABX Reporting Has patient been on IV antibiotics over the past 48 hours?: Yes Current Medications - Current Medications Current Medications: Active Medications Acetaminophen (Tylenol) 650 mg PO Q4HR PRN PRN Reason: Pain 1 to 4 Albuterol () 2.5 mg INH RTQ4H PRN PRN Reason: Wheezing Last Admin: 03/12/19 08:18 Dose: 2.5 mg Albuterol/Ipratropium (Duoneb) 3 ml INH RTQID PRN PRN Reason: Shortness of Air/Wheezing Alcohol (Liquor) 50 ml PO 1800 PENDING SALE TO [facility] Last Admin: 03/11/19 18:58 Dose: 50 ml Aspirin (Ecotrin) 81 mg PO DAILY [facility] Last Admin: 03/12/19 08:57 Dose: 81 mg Atorvastatin Calcium (Lipitor) 80 mg PO DAILY [facility] Last Admin: 03/12/19 08:58 Dose: 80 mg Azithromycin (Zithromax) 250 mg PO DAILY [facility] Stop: 03/13/19 00:00 Last Admin: 03/12/19 08:57 Dose: 250 mg Famotidine (Pepcid) 20 mg PO BID [facility]END[facility] TO [facility] Last Admin: 03/12/19 08:58 Dose: 20 mg Furosemide (Lasix) 20 mg PO BIDDIURETIC PENDING SALE TO [facility] Last Admin: 03/12/19 06:12 Dose: 20 mg Guaifenesin (Mucinex) 600 mg PO BID [facility]END[facility] TO [facility] Last Admin: 03/12/19 08:57 Dose: 600 mg Heparin Sodium (Porcine) () 5,000 unit SUBQ BID [facility]END[facility] Last Admin: 03/12/19 09:17 Dose: 5,000 unit Ceftriaxone Sodium 2 gm/ (Sodium Chloride) 100 mls @ 200 mls/hr IV DAILY [facility] Last Infusion: 03/12/19 09:35 Dose: Infused Lisinopril (Zestril) 10 mg PO DAILY [facility] Last Admin: 03/12/19 08:58 Dose: 10 mg Metoprolol Succinate (Toprol Xl) 50 mg PO BID [facility] Last Admin: 03/12/19 08:58 Dose: 50 mg Mineral Oil (Cavilon) 1 applic TOP PRN PRN PRN Reason: Skin Care Last Admin: 03/11/19 23:23 Dose: 1 applic Nystatin (Nystop) 1 applic TOP BID [facility]END[facility] TO [facility] Last Admin: 03/12/19 08:58 Dose: 1 applic Patient Own Med ( Finasteride [ Propecia] 1 Mg) 1 each PO DAILY [facility] Last Admin: 03/12/19 08:58 Dose: Not Given Multivit/Folic Acid/Iron (Trinatal Rx 1) 1 tab PO DAILYWM PENDING SALE TO [facility] Last Admin: 03/12/19 08:57 Dose: 1 tab Prochlorperazine Edisylate (Compazine Inj) 10 mg IVP Q6HR PRN PRN Reason: Nausea / Vomiting Saccharomyces Boulardii (Florastor) 250 mg PO BIDWM PENDING SALE TO [facility] Last Admin: 03/12/19 08:57 Dose: 250 mg Sodium Chloride (Normal Saline Flush 0.9%) 10 ml IVP PRN PRN PRN Reason: NEEDED PER PROVIDER ORDERS Last Admin: 03/09/19 05:39 Dose: 10 ml Sodium Chloride (Normal Saline Flush 0.9%) 10 ml IVP 0100,0900,1700 PENDING SALE TO [facility] Last Admin: 03/12/19 08:59 Dose: 10 ml Tamsulosin HCl (Flomax) 0.4 mg PO DAILY [facility] Last Admin: 03/12/19 08:57 Dose: 0.4 mg Thiamine HCl (Vitamin B-1) 100 mg PO DAILY [facility]END[facility] Last Admin: 03/12/19 08:57 Dose: 100 mg Aspirin [Aspir 81] 81 mg PO DAILY 11/22/13 Atorvastatin Calcium 80 mg PO DAILY 11/22/13 Lisinopril 40 mg PO DAILY 11/22/13 Tamsulosin HCl [Flomax] 0.4 mg PO DAILY 11/22/13 Finasteride [Propecia] 1 mg PO DAILY 04/26/17 Metoprolol Succinate 50 mg PO DAILY 03/07/19
--- NOTE | 2019-03-12 12:20 | XRAY Report ---
Reason: wheezing, SOB Procedure Date: 03/12/2019 Accession Number: [id number] / [id number] Procedure: XR - Chest 1 View X-Ray CPT Code: 86140 Final Report FULL RESULT: EXAM: CHEST RADIOGRAPHY EXAM DATE: 03/12/2019 10:18 AM. CLINICAL HISTORY: Wheezing, shortness of breath. COMPARISON: Chest radiograph from 03/10/2019, 03/07/2019. TECHNIQUE: 1 view. FINDINGS: Lungs/Pleura: There is increasing bibasilar consolidation. Patchy right midlung opacity is also increased. Moderate right and small left pleural effusions have increased. No pneumothorax. Mediastinum: There is obscuration of the cardiac silhouette, which appears enlarged. Mediastinal contour is within normal limits. Pulmonary vasculature is engorged. Other: None. IMPRESSION: 1. Findings suggesting mild to moderate CHF/fluid overload with increasing moderate right and small left pleural effusions. 2. Bibasilar consolidation is also increased and may be secondary to pleural effusions and atelectasis or superimposed infiltrate. RADIA
--- NOTE | 2019-03-12 14:41 | ADVANCE CARE PLANNING NOTE ---
Advance Care Planning - Planning Encounter Date: 03/12/19 Time: 14:41 Purpose: advance care plan for pt Parties in Attendance: pt, today nurse and me Decisional Capacity of the Patient: pt is alert and oriented today. 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 He has been 3 times. He currently lives at home alone and has a caregiver. He has one son and one daughter but unfortunately both his children recently. he report He never had smoking. He does drink alcohol and reports consuming 2 drinks a night. He drinks approximately 3-4 nights a week. He report he had a good life even unfortunately his children at early stage. he thought quality life is important to him. He did understand the meaning of DNR/DNI and full code. At this time, he would like to choose the DNR/DNI for his code status. Today nurse with me heard pt's request of DNR/DNI Objective/Medical Story: pt had a past medical history significant for lymphedema of the bilateral lower extremities, Coronary artery disease with stenting in the past, History of subarachnoid hemorrhage. At this time, he developed pneumonia, bilateral pleural effusion, special right pleural effusion was more than left with moderate size. pt also was found to have systolic and diastolic heart failure with EF at 40- 45%. Goals of Care: advance care plan for pt Plan: Pt would like to change his code status from full code to DNR/DNI today. Code Status: Do Not Attempt Resuscitation Time spent on advance care plannin
[2019-03-12] MEDS: BUMETANIDE 1 MG TABLET PO SCH (16:46)
[2019-03-12] MEDS: LIQUOR 50 ML BOTTLE PO SCH (18:00)
[2019-03-13] MEDS: SODIUM CHLORIDE FLUSH 0.9% 10 ML SYRINGE IVP SCH ×4 (01:27→23:31)
[2019-03-13 05:18] LABS: BASOPHILS # (AUTO) 0.1 10^3/uL (0.0-0.1); BASOPHILS % (AUTO) 1.1 %; EOSINOPHILS # (AUTO) 0.3 10^3/uL (0.0-0.7); EOSINOPHILS % (AUTO) 4.5 %; HGB - HEMOGLOBIN 12.5 g/dL (14.0-18.0); LYMPHOCYTES # (AUTO) 1.2 10^3/uL (1.5-3.5); LYMPHOCYTES % (AUTO) 22.5 %; MEAN CORPUSCULAR HEMOGLOBIN 30.5 pg (27.0-31.0); MEAN CORPUSCULAR HGB CONC 31.9 g/dL (32.0-36.0); MEAN CORPUSCULAR VOLUME 95.6 fL (80.0-94.0); MEAN PLATELET VOLUME 10.2 fL (7.4-11.4); MONOCYTES # (AUTO) 0.6 10^3/uL (0.0-1.0); MONOCYTES % (AUTO) 11.2 %; NEUTROPHILS # (AUTO) 3.3 10^3/uL (1.5-6.6); NEUTROPHILS % (AUTO) 60.3 %; PLT - PLATELET COUNT 145 10^3/uL (130-450); WHITE BLOOD COUNT 5.5 x10^3/uL (4.8-10.8)
[2019-03-13 05:34] LABS: CALCIUM 8.5 mg/dL (8.5-10.3); CREATININE 0.9 mg/dL (0.6-1.2)
[2019-03-13] MEDS: BUMETANIDE 1 MG TABLET PO SCH ×2 (05:42→14:24)
[2019-03-13] MEDS: NYSTATIN POWDER 15 GM TOP SCH ×2 (09:49→20:20)
[2019-03-13] MEDS: cefTRIAXone 2 GM in SODIUM CHLORIDE 0.9% MINIBAG 100 ML IV SCH (09:49)
[2019-03-13] MEDS: SACCHAROMYCES BOULARDII 250 MG CAPSULE PO SCH ×2 (09:50→17:14)
[2019-03-13] MEDS: METOPROLOL SUCCINATE 25 MG TABLET PO SCH ×2 (09:50→20:20)
[2019-03-13] MEDS: ASPIRIN EC 81 MG TABLET PO SCH (09:51)
[2019-03-13] MEDS: FAMOTIDINE 20 MG TABLET PO SCH ×2 (09:51→20:20)
[2019-03-13] MEDS: LISINOPRIL 5 MG TABLET PO SCH (09:51)
[2019-03-13] MEDS: TAMSULOSIN 0.4 MG CAPSULE PO SCH (09:51)
[2019-03-13] MEDS: ATORVASTATIN 40 MG TABLET PO SCH (09:51)
[2019-03-13] MEDS: THIAMINE 100 MG TABLET PO SCH (09:51)
[2019-03-13] MEDS: PRENATAL VITAMIN TABLET PO SCH (09:51)
[2019-03-13] MEDS: guaiFENesin 600 MG TABLET PO SCH ×2 (09:51→20:20)
[2019-03-13] MEDS: HEPARIN 5,000 UNIT/ML VIAL SUBQ SCH ×2 (09:52→20:20)
[2019-03-13] MEDS: FINASTERIDE 1 MG PO SCH (09:52)
[2019-03-13] MEDS: cephALEXin 250 MG CAPSULE PO SCH ×3 (14:24→23:31)
--- NOTE | 2019-03-13 14:51 | PROVIDER PROGRESS NOTE ---
Subjective - Prog Note Date Prog Note Date: 03/13/19 - Subjective Pt reports feeling: Improved Subjective: pt report he feel better, breathing is better. he denies chest pain, fever, chill. pt walked with PT about 15 feet without obvious difficult breathing. PT recommended pt can be d/c to SNF for continue training from his standpoint. Unfortunately pt is still not proved to SNF by his insurance yet. Current Medications - Current Medications Current Medications: Active Medications Acetaminophen (Tylenol) 650 mg PO Q4HR PRN PRN Reason: Pain 1 to 4 Albuterol () 2.5 mg INH RTQ4H PRN PRN Reason: Wheezing Last Admin: 03/12/19 08:18 Dose: 2.5 mg Albuterol/Ipratropium (Duoneb) 3 ml INH RTQID PRN PRN Reason: Shortness of Air/Wheezing Alcohol (Liquor) 50 ml PO 1800 [facility] Last Admin: 03/12/19 18:00 Dose: 50 ml Aspirin (Ecotrin) 81 mg PO DAILY [facility] Last Admin: 03/13/19 09:51 Dose: 81 mg Atorvastatin Calcium (Lipitor) 80 mg PO DAILY [facility] Last Admin: 03/13/19 09:51 Dose: 80 mg Bumetanide (Bumex) 1 mg PO BIDDIURETIC [facility] Last Admin: 03/13/19 14:24 Dose: 1 mg Cephalexin (Keflex) 250 mg PO Q6HR [facility] Last Admin: 03/13/19 14:24 Dose: 250 mg Famotidine (Pepcid) 20 mg PO BID [facility] Last Admin: 03/13/19 09:51 Dose: 20 mg Guaifenesin (Mucinex) 600 mg PO BID [facility] Last Admin: 03/13/19 09:51 Dose: 600 mg Heparin Sodium (Porcine) () 5,000 unit SUBQ BID [facility] Last Admin: 03/13/19 09:52 Dose: 5,000 unit Lisinopril (Zestril) 10 mg PO DAILY [facility] Last Admin: 03/13/19 09:51 Dose: 10 mg Metoprolol Succinate (Toprol Xl) 50 mg PO BID [facility] Last Admin: 03/13/19 09:50 Dose: 50 mg Mineral Oil (Cavilon) 1 applic TOP PRN PRN PRN Reason: Skin Care Last Admin: 03/11/19 23:23 Dose: 1 applic Nystatin (Nystop) 1 applic TOP BID [facility] Last Admin: 03/13/19 09:49 Dose: 1 applic Patient Own Med ( Finasteride [ Propecia] 1 Mg) 1 each PO DAILY [facility] Last Admin: 03/13/19 09:52 Dose: Not Given Multivit/Folic Acid/Iron (Trinatal Rx 1) 1 tab PO DAILYWM [facility] Last Admin: 03/13/19 09:51 Dose: 1 tab Prochlorperazine Edisylate (Compazine Inj) 10 mg IVP Q6HR PRN PRN Reason: Nausea / Vomiting Saccharomyces Boulardii (Florastor) 250 mg PO BIDWM [facility] Last Admin: 03/13/19 09:50 Dose: 250 mg Sodium Chloride (Normal Saline Flush 0.9%) 10 ml IVP PRN PRN PRN Reason: NEEDED PER PROVIDER ORDERS Last Admin: 03/09/19 05:39 Dose: 10 ml Sodium Chloride (Normal Saline Flush 0.9%) 10 ml IVP 0100,0900,1700 [facility] Last Admin: 03/13/19 09:50 Dose: 10 ml Tamsulosin HCl (Flomax) 0.4 mg PO DAILY [facility] Last Admin: 03/13/19 09:51 Dose: 0.4 mg Thiamine HCl (Vitamin B-1) 100 mg PO DAILY [facility] Last Admin: 03/13/19 09:51 Dose: 100 mg Aspirin [Aspir 81] 81 mg PO DAILY 11/22/13 Atorvastatin Calcium 80 mg PO DAILY 11/22/13 Lisinopril 40 mg PO DAILY 11/22/13 Tamsulosin HCl [Flomax] 0.4 mg PO DAILY 11/22/13 Finasteride [Propecia] 1 mg PO DAILY 04/26/17 Metoprolol Succinate 50 mg PO DAILY 03/07/19 Objective - Vital Signs/Intake & Output Reviewed Vital Signs: Yes Vital Signs: Vital Signs x48h Temp Pulse Resp BP Pulse Ox 03/13/19 10:23 94 03/13/19 10:16 91 L 03/13/19 08:00 36.4 C L 87 20 132/83 H 94 Intake & Output: Intake & Output 03/10/19 03/11/19 03/12/19 03/13/19 23:59 23:59 23:59 23:59 Intake Total 054 821 2438 690 Output Total 1700 Balance -929 850 7301 690 - Objective General Appearance: positive: No acute distress, Alert. negative: Lethargic Eyes Bilateral: positive: Normal inspection, PERRL, EOMI, No lid inflammation ENT: positive: ENT inspection nml, Pharynx nml, No signs of dehydration. negative: Purulent nasal drainage Neck: positive: Nml inspection, Thyroid nml, No JVD, Trachea midline. negative: Thyromegaly, Lymphadenopathy (R), Lymphadenopathy (L), Stiff neck, Tracheal deviation Respiratory: positive: Chest non-tender, No respiratory distress. negative: Wheezes, Rales, Rhonchi Cardiovascular: positive: Regular rate & rhythm, No murmur, No gallop. negative: Irregularly irregular, Extrasystoles, Tachycardia, Bradycardia, JVD present, Systolic murmur, Diastolic murmur Peripheral Pulses: 2+ Radial (R), 2+ Radial (L), 2+ Dorsalis pedis (R), 2+ Dorsalis pedis (L) Abdomen: positive: Non-tender, No organomegaly, Nml bowel sounds, No distention. negative: Tenderness, Guarding, Rebound Back: positive: Nml inspection. negative: CVA tenderness (R), CVA tenderness (L) Skin: positive: Warm, Dry, Skin rash, Other (pt has bilateral lymphedema with chronic mild rash). negative: Cyanosis, Diaphoresis, Pallor Extremities: positive: Non-tender, Full ROM. negative: Calf tenderness Neurologic/Psychiatric: positive: Oriented x3, Motor nml, Sensation nml, Mood/affect nml. negative: Weakness, Sensory loss, Facial droop, Slurred/abnml speech, Depressed mood/affect - Lab Results Fish Bones: 03/13/19 05:00 03/13/19 05:00 Other Labs: Lab Results x24hrs 03/13/19 03/13/19 Range/Units 05:00 05:00 WBC 5.5 (4.8-10.8) x10^3/uL RBC 4.10 L (4.70-6.10) 10^6/uL Hgb 12.5 L (14.0-18.0) g/dL Hct 39.2 L (42.0-52.0) % MCV 95.6 H (80.0-94.0) fL MCH 30.5 (27.0-31.0) pg MCHC 31.9 L (32.0-36.0) g/dL RDW 13.0 (12.0-15.0) % Plt Count 145 (130-450) 10^3/uL MPV 10.2 (7.4-11.4) fL Neut # (Auto) 3.3 (1.5-6.6) 10^3/uL Lymph # (Auto) 1.2 L (1.5-3.5) 10^3/uL [place] # (Auto) 0.6 (0.0-1.0) 10^3/uL Eos # (Auto) 0.3 (0.0-0.7) 10^3/uL Baso # (Auto) 0.1 (0.0-0.1) 10^3/uL Absolute Nucleated RBC 0.00 x10^3/uL Nucleated RBC % 0.0 /100WBC Sodium 140 (135-145) mmol/L Potassium 3.5 (3.5-5.0) mmol/L Chloride 99 L (101-111) mmol/L Carbon Dioxide 32 (21-32) mmol/L Anion Gap 9.0 (6-13) BUN 17 (6-20) mg/dL Creatinine 0.9 (0.6-1.2) mg/dL Estimated GFR (MDRD) 80 L (>89) Glucose 120 H (70-100) mg/dL Calcium 8.5 (8.5-10.3) mg/dL ABX Reporting Has patient been on IV antibiotics over the past 48 hours?: Yes Sepsis Event Note (H) - Evaluation Current Stage of Sepsis: Ruled out Assessment/Plan - Problem List (1) Wheezing on both sides of chest Impression: significant improved in lung sound. CXR is pending now. pt walked with PT about 15 feet without obvious difficult breathing. continue Bumex continue lab and vital monitor (2) Delirium Assessment/Plan: resolved today. pt had negative CT of head without acute findings (3) Congestive heart failure clinically pt is improving. continue Bumex continue daily weight, Metoprolol, and Lisinopril continue tele and vital monitor (4) CAP (community acquired pneumonia) Assessment/Plan: pt was treated with IV antibiotics for 6 days. pt had normal WBC, pt had no fever or chill switch to PO antibiotics to finish the treatment course. (5) Pleural effusion Assessment/Plan: CXR is pending. pt can walk today with PT, pt might not need further intervention thoracentesis at this time (6) Atrial fibrillation HR is under better control with rising dose of Metoprolol, will continue same dosage of metoprolol Daily ASA for stroke prophylaxis, no anticoagulation due to hx of subarrachnoid hemorrhage continue tele monitor (7) Alcohol use disorder Assessment/Plan: pt is stable, pt is on a CIWA protocol, got low dose Librium and gets 50cc of vodka with dinner ordered here. He cannot remember some past details in his Hx of alcoholism, is very tangential when he speaks, making the possibility of Wernicke-Korsakoff syndrome a possibility. He is on daily po Thiamone here. pt may discharge with po B1 (8) HTN (hypertension) Assessment/Plan: BP controlled on current meds (9) BPH (benign prostatic hyperplasia) Assessment/Plan: Home meds were ordered (10) Lymphedema of both lower extremities Assessment/Plan: pt has no significant pit edema now. Chronic and severe, he apparently has a home boot he wears pt's pit edema is improved on bilateral lower extremities. pt is ordered home health PT per PT's recommendation, and home health RN for his skin care (11) Hx of coronary artery disease Assessment/Plan: advise pt to have outpatient f/u with PCP or CArdiology after Dch, to determine if he needs W/U for worsening of CAD (12) generalized weakness pt was recommended to SNF for continue training and fall precaution by PT continue PT/OT evaluation and treatment. (2) Congestive heart failure Qualifiers: Heart failure type: unspecified (3) Atrial fibrillation Qualifiers: Atrial fibrillation type: unspecified Qualified Code(s): I48.91 - Unspecified atrial fibrillation (6) Dyspnea Qualifiers: Dyspnea type: orthopnea Qualified Code(s): R06.01 - Orthopnea
[2019-03-13] MEDS: LIQUOR 50 ML BOTTLE PO SCH (17:14)
[2019-03-14 05:21] LABS: BASOPHILS # (AUTO) 0.1 10^3/uL (0.0-0.1); BASOPHILS % (AUTO) 0.9 %; EOSINOPHILS # (AUTO) 0.3 10^3/uL (0.0-0.7); EOSINOPHILS % (AUTO) 3.6 %; HGB - HEMOGLOBIN 12.1 g/dL (14.0-18.0); LYMPHOCYTES # (AUTO) 1.5 10^3/uL (1.5-3.5); LYMPHOCYTES % (AUTO) 18.3 %; MEAN CORPUSCULAR HEMOGLOBIN 29.4 pg (27.0-31.0); MEAN CORPUSCULAR HGB CONC 30.8 g/dL (32.0-36.0); MEAN CORPUSCULAR VOLUME 95.4 fL (80.0-94.0); MONOCYTES # (AUTO) 0.9 10^3/uL (0.0-1.0); MONOCYTES % (AUTO) 10.7 %; NEUTROPHILS # (AUTO) 5.4 10^3/uL (1.5-6.6); PLT - PLATELET COUNT 147 10^3/uL (130-450); RED BLOOD COUNT 4.12 10^6/uL (4.70-6.10); RED CELL DISTRIBUTION WIDTH 13.1 % (12.0-15.0); WHITE BLOOD COUNT 8.1 x10^3/uL (4.8-10.8)
[2019-03-14 05:25] LABS: CALCIUM 8.9 mg/dL (8.5-10.3)
[2019-03-14] MEDS: cephALEXin 250 MG CAPSULE PO SCH ×3 (06:32→18:29)
[2019-03-14] MEDS: BUMETANIDE 1 MG TABLET PO SCH ×2 (06:32→13:05)
--- NOTE | 2019-03-14 08:20 | Discharge Plan ---
Discharge Plan Disposition: 06 Home Health Service Condition: Stable Prescriptions: Bumetanide [Bumex] 1 mg PO BIDDIURETIC #60 tablet Lisinopril [Zestril] 10 mg PO DAILY #30 tablet Metoprolol Succinate [Toprol Xl] 50 mg PO BID #60 tablet Nystatin [Nystop] 1 applic TOP BID #45 bottle Diet: Low Sodium Activity Restrictions: Activity as Tolerated Shower Restrictions: No Driving Restrictions: Yes Assistance Devices: Walker Health Concerns: You presented to our emergency room with a history of heart disease and having stents in the past, but have been having increasing leg edema, and severe shortness of breath when you try to do anything. You have congestive heart failure. We did an ultrasound of your heart called an echocardiogram. In the past your muscle pump was able to push forward a normal amount of blood which is 60 to 65%. On this new echocardiogram your pumping function is down to 45%. This is causing blood to back up into your lungs, and into the right side of your heart and into your legs. You also have new atrial fibrillation which is an irregular heartbeat. The fast irregular heartbeat may have contributed to your congestive heart failure. Atrial fibrillation can lead to an increased risk of stroke and usually we put people on blood thinners. However, you have a previous history of a subarachnoid hemorrhage and cannot be on blood thinners. Alcohol use can lead to atrial fibrillation and heart disease. You drink almost on a daily basis. We would prefer you to stop drinking altogether. Plan of Treatment: 1. You will be on new water pills that will make you urinate on a daily basis. Do not skip water pills. 2. Sometimes the water pills will make you lewis potassium out of your kidneys. Please make sure that your regular doctor check your potassium on a regular basis to see if you need potassium pills. 3. The treatment for congestive heart failure is water pills, beta-blockers like metoprolol, and medicines like lisinopril. Make sure you take these medicines every day. 4. Please refrain from any alcohol drinking 5. Physical therapy felt that you are a candidate for rehabilitation at a long term facility. However your insurance authorization did not allow this. As such we are sending you home with home health and physical therapy and a nurse to listen to your lungs and monitor your heart. Care Goals: 1. To remain at home as long as possible 2. To control your congestive heart failure Assessment: Patient expresses understanding's of goal No Smoking: If you smoke, Please STOP! Call for help. Follow-up with: Ton Dahl MD [Primary Care Provider] -
[2019-03-14] MEDS: TAMSULOSIN 0.4 MG CAPSULE PO SCH (08:36)
[2019-03-14] MEDS: FAMOTIDINE 20 MG TABLET PO SCH ×2 (08:36→20:37)
[2019-03-14] MEDS: THIAMINE 100 MG TABLET PO SCH (08:36)
[2019-03-14] MEDS: PRENATAL VITAMIN TABLET PO SCH (08:36)
[2019-03-14] MEDS: guaiFENesin 600 MG TABLET PO SCH ×2 (08:36→20:37)
[2019-03-14] MEDS: NYSTATIN POWDER 15 GM TOP SCH ×2 (08:36→20:39)
[2019-03-14] MEDS: ASPIRIN EC 81 MG TABLET PO SCH (08:36)
[2019-03-14] MEDS: ATORVASTATIN 40 MG TABLET PO SCH (08:36)
[2019-03-14] MEDS: SACCHAROMYCES BOULARDII 250 MG CAPSULE PO SCH ×2 (08:36→18:29)
[2019-03-14] MEDS: METOPROLOL SUCCINATE 25 MG TABLET PO SCH ×2 (08:36→20:37)
[2019-03-14] MEDS: LISINOPRIL 5 MG TABLET PO SCH (08:36)
[2019-03-14] MEDS: HEPARIN 5,000 UNIT/ML VIAL SUBQ SCH ×2 (08:38→20:42)
[2019-03-14] MEDS: FINASTERIDE 1 MG PO SCH (08:44)
--- NOTE | 2019-03-14 08:54 | Discharge Plan ---
"Discharge Plan for SNF / [facility] - Discharge Plan And Transition Orders Problem Reviewed?: Yes Disposition: 03 SNF DC/Xfer Condition: Stable Allergies and Adverse Reactions: Allergies Allergy/AdvReac Type Severity Reaction Status Date / Time No Known Drug Allergies Allergy Verified 11/22/13 09:11 Health Concerns: You presented to our emergency room with a history of heart disease and having stents in the past, but have been having increasing leg edema, and severe shortness of breath when you try to do anything. You have congestive heart failure. We did an ultrasound of your heart called an echocardiogram. In the past your muscle pump was able to push forward a normal amount of blood which is 60 to 65%. On this new echocardiogram your pumping function is down to 45%. This is causing blood to back up into your lungs, and into the right side of your heart and into your legs. You also have new atrial fibrillation which is an irregular heartbeat. The fast irregular heartbeat may have contributed to your congestive heart failure. Atrial fibrillation can lead to an increased risk of stroke and usually we put people on blood thinners. However, you have a previous history of a subarachnoid hemorrhage and cannot be on blood thinners. Alcohol use can lead to atrial fibrillation and heart disease. You drink almost on a daily basis. We would prefer you to stop drinking altogether. Plan of Treatment: 1. You will be on new water pills that will make you urinate on a daily basis. Do not skip water pills. 2. Sometimes the water pills will make you lewis potassium out of your kidneys. Please make sure that your regular doctor check your potassium on a regular basis to see if you need potassium pills. 3. The treatment for congestive heart failure is water pills, beta-blockers like metoprolol, and medicines like lisinopril. Make sure you take these medicines every day. 4. Please refrain from any alcohol drinking 5. Physical therapy felt that you are a candidate for rehabilitation at a fdc facility. As such you will be discharge to [facility] for further stengthening and goal for independence to live at home. Care Goals: 1. To return to home once you complete rehab 2. To control your congestive heart failure Assessment: Patient expresses understanding's of goal - SNF / CARE HOME Transition Orders Admit to (Facility): [facility] Discharge Diagnosis: 1. Acute on chronic systolic congestive heart failure with ejection fraction 45% 2. New onset atrial fibrillation with RVR not a candidate for anticoagulation 3. History of alcohol use disorder with alcohol intoxication with fall and subarachnoid hemorrhage 4. Delirium, resolved 5. Community-acquired pneumonia 6. Pleural effusion due to congestive heart failure 7. History of coronary artery disease with stent 8. Generalized weakness 9. Hypertension 10. Hyperlipidemia 11. Benign prostatic hypertrophy 12. [place] respiration with noctural hypoxemia Medicare Certification Statement: I certify that [facility] care is medically necessary on a continuing basis for any of the conditions for which she/he is receiving care during hospitalization. Notify PCP of admission and forward orders to primary provider for signature. Weight on admission and: Daily Call PCP immediately if weight increases by: 2 kg Other Notification Orders: Call PCP immediately if patient develops dyspnea, chest pain/tightness or edema. House Bowel Program: Yes Additional Bowel Program Orders: If no BM after 2 days, nurse may give M.O.M. 30ml PO PRN and/or ducolax Supp 1 LA and/or EFFIE 250mg P.O., and/or senna 1-2 tabs PO. On day 3 nurse may give repeat above order until residents constipation is resolved. Annual Influenza Vaccine (between Dec 14 and July 13): Yes Two-step PPD per [facility] [id number] or approved exception documents: Yes Oxygen Orders: 2 liters NC while asleep for [place] respiration Lab Tests or X-ray Orders: BMP and BNP 03/16 and 03/23 Medication Orders: PLEASE REFER TO THE DISCHARGE MEDICATION LIST. Insulin Orders?: No - Medications New Prescriptions: Bumetanide [Bumex] 1 mg PO BIDDIURETIC #60 tablet Lisinopril [Zestril] 10 mg PO DAILY #30 tablet Metoprolol Succinate [Toprol Xl] 50 mg PO BID #60 tablet Nystatin [Nystop] 1 applic TOP BID #45 bottle - Diet Type: No added salt Texture: Regular Liquids: Thin May have monthly special meal: Yes - Therapies | Activity Therapy: Evaluation | Treat if indicated: PT, OT Rehabilitation Potential: Return to independent living Activity: Activity as Tolerated Assistance Devices: Walker"
[2019-03-14] MEDS: SODIUM CHLORIDE FLUSH 0.9% 10 ML SYRINGE IVP SCH ×2 (13:05→18:29)
--- NOTE | 2019-03-14 16:51 | PROVIDER PROGRESS NOTE ---
Subjective - Prog Note Date Prog Note Date: 03/14/19 Prog Note Time: 16:49 - Subjective Subjective: he was supposed to go to [facility] today after they accepted him in transfer. At the last second, they called back and said he owed them $4500 from the last time he was there so they will not accept him. Current Medications - Current Medications Current Medications: Active Medications Acetaminophen (Tylenol) 650 mg PO Q4HR PRN PRN Reason: Pain 1 to 4 Albuterol () 2.5 mg INH RTQ4H PRN PRN Reason: Wheezing Last Admin: 03/12/19 08:18 Dose: 2.5 mg Albuterol/Ipratropium (Duoneb) 3 ml INH RTQID PRN PRN Reason: Shortness of Air/Wheezing Alcohol (Liquor) 50 ml PO 1800 [facility] Last Admin: 03/13/19 17:14 Dose: 50 ml Aspirin (Ecotrin) 81 mg PO DAILY [facility] Last Admin: 03/14/19 08:36 Dose: 81 mg Atorvastatin Calcium (Lipitor) 80 mg PO DAILY [facility] Last Admin: 03/14/19 08:36 Dose: 80 mg Bumetanide (Bumex) 1 mg PO BIDDIURETIC [facility] Last Admin: 03/14/19 13:05 Dose: 1 mg Cephalexin (Keflex) 250 mg PO Q6HR [facility] Last Admin: 03/14/19 13:05 Dose: 250 mg Famotidine (Pepcid) 20 mg PO BID [facility] Last Admin: 03/14/19 08:36 Dose: 20 mg Guaifenesin (Mucinex) 600 mg PO BID [facility] Last Admin: 03/14/19 08:36 Dose: 600 mg Heparin Sodium (Porcine) () 5,000 unit SUBQ BID [facility] Last Admin: 03/14/19 08:38 Dose: 5,000 unit Lisinopril (Zestril) 10 mg PO DAILY [facility] Last Admin: 03/14/19 08:36 Dose: 10 mg Metoprolol Succinate (Toprol Xl) 50 mg PO BID [facility] Last Admin: 03/14/19 08:36 Dose: 50 mg Mineral Oil (Cavilon) 1 applic TOP PRN PRN PRN Reason: Skin Care Last Admin: 03/11/19 23:23 Dose: 1 applic Nystatin (Nystop) 1 applic TOP BID [facility] Last Admin: 03/14/19 08:36 Dose: 1 applic Patient Own Med ( Finasteride [ Propecia] 1 Mg) 1 each PO DAILY [facility] Last Admin: 03/14/19 08:44 Dose: Not Given Multivit/Folic Acid/Iron (Trinatal Rx 1) 1 tab PO DAILYWM [facility] Last Admin: 03/14/19 08:36 Dose: 1 tab Prochlorperazine Edisylate (Compazine Inj) 10 mg IVP Q6HR PRN PRN Reason: Nausea / Vomiting Saccharomyces Boulardii (Florastor) 250 mg PO BIDWM [facility] Last Admin: 03/14/19 08:36 Dose: 250 mg Sodium Chloride (Normal Saline Flush 0.9%) 10 ml IVP PRN PRN PRN Reason: NEEDED PER PROVIDER ORDERS Last Admin: 03/09/19 05:39 Dose: 10 ml Sodium Chloride (Normal Saline Flush 0.9%) 10 ml IVP 0100,0900,1700 [facility] Last Admin: 03/14/19 13:05 Dose: 10 ml Tamsulosin HCl (Flomax) 0.4 mg PO DAILY [facility] Last Admin: 03/14/19 08:36 Dose: 0.4 mg Thiamine HCl (Vitamin B-1) 100 mg PO DAILY [facility] Last Admin: 03/14/19 08:36 Dose: 100 mg Aspirin [Aspir 81] 81 mg PO DAILY 11/22/13 Atorvastatin Calcium 80 mg PO DAILY 11/22/13 Tamsulosin HCl [Flomax] 0.4 mg PO DAILY 11/22/13 Finasteride [Propecia] 1 mg PO DAILY 04/26/17 Metoprolol Succinate 50 mg PO DAILY 03/07/19 Objective - Vital Signs/Intake & Output Reviewed Vital Signs: Yes Vital Signs: Vital Signs x48h Temp Pulse Resp BP Pulse Ox 03/14/19 15:23 36.5 C 81 18 107/66 97 Intake & Output: Intake & Output 03/11/19 03/12/19 03/13/19 03/14/19 23:59 23:59 23:59 23:59 Intake Total 920 1230 930 540 Balance 920 1230 930 540 - Objective General Appearance: positive: Other (elderly white male, nasal voice, gets drowsy easily but wakes to voice when I walk in) Eyes Bilateral: positive: PERRL ENT: positive: Pharynx nml Neck: positive: No JVD. negative: Stiff neck Respiratory: positive: Chest non-tender. negative: Wheezes, Rales, Rhonchi Cardiovascular: positive: Irregularly irregular. negative: Gallop/S4, Friction rub Abdomen: positive: Non-tender, No organomegaly, Nml bowel sounds, No distention Skin: positive: Warm, Dry Neurologic/Psychiatric: positive: Other (forgetful, kyphotic male w generlized weakness but able to get up) - Lab Results Fish Bones: 03/14/19 05:05 03/14/19 05:05 Other Labs: Lab Results x24hrs 03/14/19 03/14/19 Range/Units 05:05 05:05 WBC 8.1 (4.8-10.8) x10^3/uL RBC 4.12 L (4.70-6.10) 10^6/uL Hgb 12.1 L (14.0-18.0) g/dL Hct 39.3 L (42.0-52.0) % MCV 95.4 H (80.0-94.0) fL MCH 29.4 (27.0-31.0) pg MCHC 30.8 L (32.0-36.0) g/dL RDW 13.1 (12.0-15.0) % Plt Count 147 (130-450) 10^3/uL MPV 10.0 (7.4-11.4) fL Neut # (Auto) 5.4 (1.5-6.6) 10^3/uL Lymph # (Auto) 1.5 (1.5-3.5) 10^3/uL [place] # (Auto) 0.9 (0.0-1.0) 10^3/uL Eos # (Auto) 0.3 (0.0-0.7) 10^3/uL Baso # (Auto) 0.1 (0.0-0.1) 10^3/uL Absolute Nucleated RBC 0.00 x10^3/uL Nucleated RBC % 0.0 /100WBC Sodium 140 (135-145) mmol/L Potassium 3.7 (3.5-5.0) mmol/L Chloride 98 L (101-111) mmol/L Carbon Dioxide 33 H (21-32) mmol/L Anion Gap 9.0 (6-13) BUN 17 (6-20) mg/dL Creatinine 1.0 (0.6-1.2) mg/dL Estimated GFR (MDRD) 71 L (>89) Glucose 119 H (70-100) mg/dL Calcium 8.9 (8.5-10.3) mg/dL Sepsis Event Note (H) - Evaluation Current Stage of Sepsis: Ruled out Assessment/Plan - Problem List (1) Acute systolic CHF (congestive heart failure), NYHA class 2 Impression: now stable but needs strenghtening before returning to home. will continue meds as is until he can be transferred to a SNF (2) Atrial fibrillation Impression: new diagnosis on admission. persistent while here. rate is controlled. Qualifiers: Atrial fibrillation type: unspecified Qualified Code(s): I48.91 - Unspecified atrial fibrillation
[2019-03-14] MEDS: LIQUOR 50 ML BOTTLE PO SCH (18:29)
[2019-03-15] MEDS: cephALEXin 250 MG CAPSULE PO SCH ×4 (00:23→18:28)
[2019-03-15] MEDS: SODIUM CHLORIDE FLUSH 0.9% 10 ML SYRINGE IVP SCH ×3 (00:23→17:22)
[2019-03-15] MEDS: BUMETANIDE 1 MG TABLET PO SCH ×2 (06:11→13:45)
[2019-03-15] MEDS: SACCHAROMYCES BOULARDII 250 MG CAPSULE PO SCH ×2 (08:30→17:22)
[2019-03-15] MEDS: PRENATAL VITAMIN TABLET PO SCH (08:31)
[2019-03-15] MEDS: FAMOTIDINE 20 MG TABLET PO SCH ×2 (08:31→21:15)
[2019-03-15] MEDS: METOPROLOL SUCCINATE 25 MG TABLET PO SCH ×2 (08:31→21:14)
[2019-03-15] MEDS: TAMSULOSIN 0.4 MG CAPSULE PO SCH (08:31)
[2019-03-15] MEDS: ATORVASTATIN 40 MG TABLET PO SCH (08:31)
[2019-03-15] MEDS: THIAMINE 100 MG TABLET PO SCH (08:31)
[2019-03-15] MEDS: ASPIRIN EC 81 MG TABLET PO SCH (08:33)
[2019-03-15] MEDS: NYSTATIN POWDER 15 GM TOP SCH ×2 (08:33→21:15)
[2019-03-15] MEDS: FINASTERIDE 1 MG PO SCH (08:33)
[2019-03-15] MEDS: guaiFENesin 600 MG TABLET PO SCH ×2 (08:33→21:15)
[2019-03-15] MEDS: LISINOPRIL 5 MG TABLET PO SCH (08:33)
[2019-03-15] MEDS: HEPARIN 5,000 UNIT/ML VIAL SUBQ SCH ×2 (08:38→21:19)
[2019-03-15] MEDS: LIQUOR 50 ML BOTTLE PO SCH (18:28)
[2019-03-16] MEDS: cephALEXin 250 MG CAPSULE PO SCH ×3 (00:33→14:24)
[2019-03-16] MEDS: SODIUM CHLORIDE FLUSH 0.9% 10 ML SYRINGE IVP SCH ×2 (00:33→10:08)
[2019-03-16] MEDS: BUMETANIDE 1 MG TABLET PO SCH ×2 (05:37→14:24)
[2019-03-16] MEDS ORDERED: LISINOPRIL 5 MG TABLET PO SCH (09:00)
[2019-03-16] MEDS: NYSTATIN POWDER 15 GM TOP SCH (10:06)
[2019-03-16] MEDS: TAMSULOSIN 0.4 MG CAPSULE PO SCH (10:07)
[2019-03-16] MEDS: FAMOTIDINE 20 MG TABLET PO SCH (10:07)
[2019-03-16] MEDS: ATORVASTATIN 40 MG TABLET PO SCH (10:07)
[2019-03-16] MEDS: guaiFENesin 600 MG TABLET PO SCH (10:07)
[2019-03-16] MEDS: PRENATAL VITAMIN TABLET PO SCH (10:07)
[2019-03-16] MEDS: ASPIRIN EC 81 MG TABLET PO SCH (10:07)
[2019-03-16] MEDS: THIAMINE 100 MG TABLET PO SCH (10:08)
[2019-03-16] MEDS: SACCHAROMYCES BOULARDII 250 MG CAPSULE PO SCH (10:08)
[2019-03-16] MEDS: FINASTERIDE 1 MG PO SCH (10:08)
[2019-03-16] MEDS: METOPROLOL SUCCINATE 25 MG TABLET PO SCH (10:13)
[2019-03-16] MEDS: HEPARIN 5,000 UNIT/ML VIAL SUBQ SCH (10:15)
[2019-03-16 16:51] VITALS: BP 100/68
--- NOTE | 2019-03-16 20:41 | PROVIDER PROGRESS NOTE ---
Subjective - Prog Note Date Prog Note Date: 03/15/19 Prog Note Time: 11:00 - Subjective Subjective: he is sits up in chair. comfortable. vague forgetful man but coopertive. Objective - Vital Signs/Intake & Output Reviewed Vital Signs: Yes Vital Signs: Vital Signs x48h Temp Pulse Resp BP Pulse Ox 03/16/19 16:00 36.3 C L 89 16 100/68 98 Intake & Output: Intake & Output 03/13/19 03/14/19 03/15/19 03/16/19 23:59 23:59 23:59 23:59 Intake Total 930 1080 1200 310 Balance 930 1080 1200 310 - Objective General Appearance: positive: Alert Eyes Bilateral: positive: PERRL ENT: positive: Pharynx nml Neck: positive: No JVD Respiratory: positive: Chest non-tender. negative: Rales Cardiovascular: positive: Irregularly irregular. negative: Gallop/S4, Friction rub Abdomen: positive: Non-tender, No organomegaly, Nml bowel sounds, No distention Extremities: positive: Pedal edema Neurologic/Psychiatric: positive: CN's nml (2-12), Disoriented to time. negative: Motor nml (slow and gen weak but no focal) - Lab Results Fish Bones: 03/14/19 05:05 03/14/19 05:05 Sepsis Event Note (H) - Evaluation Current Stage of Sepsis: Ruled out Assessment/Plan - Problem List (1) Acute systolic CHF (congestive heart failure), NYHA class 2 Impression: now stable but needs strenghtening before returning to home. will continue meds as is until he can be transferred to a SNF Snf was to pick him up today but they changed their mind when they searched their records adn found he owed them $4500. SS is looking fo rplacment for him. He is stable. (2) Atrial fibrillation Impression: new diagnosis on admission. persistent while here. rate is controlled. Qualifiers: Atrial fibrillation type: unspecified Qualified Code(s): I48.91 - Unspecified atrial fibrillation (2) Atrial fibrillation Qualifiers: Atrial fibrillation type: unspecified Qualified Code(s): I48.91 - Unspecified atrial fibrillation
--- NOTE | 2019-03-17 10:05 | XRAY Report ---
Reason: LINE PLACEMENT Procedure Date: 03/13/2019 Accession Number: [id number] / [id number] Procedure: XR - Chest for Line Placement CPT Code: Final Report FULL RESULT: EXAM: Chest for Line Placement DATE: 03/13/2019 4:12 PM CLINICAL HISTORY: LINE PLACEMENT COMPARISON: 03/12/2019 TECHNIQUE: Single view of the chest. FINDINGS: Lungs/Pleura: The degree of aeration is stable. Bilateral interstitial and airspace opacities are again noted. Bilateral pleural effusions evident. No pneumothorax. Mediastinum: Stable mediastinal contour. Engorged vascularity. Other: No new lines/catheter is identified in this examination. IMPRESSION: Stable pulmonary vascular congestion and bilateral pleural effusions. RADIA
--- NOTE | 2019-03-18 09:51 | DISCHARGE SUMMARY ---
Physician: Cat Sage MD DATE OF ADMISSION: 03/07/2019 DATE OF DISCHARGE: 03/16/2019 DISCHARGE DIAGNOSES 1. Acute on chronic congestive heart failure with ejection fraction 45%. 2. New onset atrial fibrillation with rapid ventricular response. 3. History of alcohol use disorder with alcohol intoxication. 4. History of fall and subarachnoid hemorrhage. 5. Delirium, resolved. 6. Community-acquired pneumonia. 7. Pleural effusion due to congestive heart failure. 8. History of coronary artery disease with stent. 9. Generalized weakness. 10. Hypertension. 11. Hyperlipidemia. 12. Benign prostatic hypertrophy. 13. [place]-Constantino respiration with nocturnal hypoxemia. DISCHARGE MEDICATIONS On transfer to [facility] facility. 1. Aspirin 81 mg daily. 2. Atorvastatin 80 mg daily. 3. Propecia 1 mg daily. 4. Metoprolol succinate 50 mg b.i.d. 5. Tamsulosin 0.4 mg daily. 6. Tylenol 650 mg p.o. q. 4 hours p.r.n. fever or pain, headache. 7. Albuterol 2.5 mg every 4 hours as needed. 8. Bumex 1 mg b.i.d. 9. Zestril 10 mg daily. 10. Nystatin, 1 application to affected area b.i.d. 11. vitamin daily. 12. Thiamine 100 mg daily. PRINCIPAL PROCEDURES 1. Echocardiogram: Mild LVH with global hypokinesis of 45% ejection fraction. Sclerotic aortic valve with normal function. Moderate pulmonary hypertension with PASP 55 mmHg. Right ventricle is moderately dilated with moderately reduced ejection fraction. Multiple chest x-rays showing stable pulmonary vascular congestion and bilateral pleural effusions. Over the course of his admission there was mild improvement. There is a central line in place. 2. Head CT with no evidence of fracture. No acute intracranial hemorrhage noted. HOSPITAL COURSE: This is an 83-year-old gentleman with a past medical history significant for lymphedema of the bilateral lower extremities that is chronic. He has coronary artery disease with stenting in the past, history of a subarachnoid hemorrhage. He also has a history of alcohol abuse. He presents today complaining of dyspnea that began last night. He woke up in the middle of the night feeling short of breath. He was having orthopnea, worsening lower extremity edema. He denied cough, fever or chills. He states his baseline weight is 170-180 pounds. In the emergency room, he was in atrial fibrillation, which was a new problem for him. Rate was in the 120s. He was tachypneic, hypoxic with O2 saturations of 88% on room air. Chest x-ray was suggestive of pulmonary vascular congestion and a right-sided pleural effusion. Troponins were negative. He was initially treated as pneumonia with 1 dose of Rocephin. During the hospital course it was felt that patient had dyspnea and edema secondary to acute on chronic congestive heart failure and he was started on a diuretic. He was already on lisinopril and metoprolol once a day when he presented to the hospital. Lasix was added, and metoprolol was increased to b.i.d. to control his heart rate. Lymphedema of the legs was chronic with thick scaling skin, but some of that lymphedema improved tremendously with diuresis. He was continued on finasteride and Flomax for his benign prostatic hypertrophy, but he did not require a Acevedo. Tomasa intertrigo was treated with nystatin. He was a very weak, elderly gentleman. Initially, it was felt that he would go home with home health, but if physical therapy saw him, they felt that he would be a candidate for rehabilitation in a penitentiary facility. At discharge, he showed good potential to achieve his goals, but he could return to independent living. He was mobile using a front-wheeled walker and was able to followup with his cues for strength and agility. Patient was discharged on 03/14, however, as they were getting ready to transfer him, the penitentiary facility called to tell us that he had been there before in previous years. He still owed them 4500 dollars and as such, they were going to decline the admission this time. As such, we then started re- referring to penitentiary facilities and he went to [facility]. He is discharged in stable condition. PHYSICAL EXAMINATION VITAL SIGNS: Temperature is 36.3, pulse is 89, blood pressure is 100/68, respirations 16, 98% on room air. He is 104.5 kilograms and is 5 feet 8 inches tall. GENERAL: He is mildly deaf, gruff, elderly gentleman who prefers to be upright and sitting in his chair watching TV, but he is alert and oriented, follows commands. HEENT: Supple, thick. No JVD evident. LUNGS: Diminished breath sounds in the bases. He does have an occasional crackle, but they clear when I have him do a good deep cough. HEART: He has a slow irregular rate and rhythm. ABDOMEN: Obese, soft, nontender. Tomasa intertrigo is resolving. He still has thick, residual changes of chronic lymphedema of his lower extremity, but edema is less than on admission. Greater than 30 minutes was spent coordinating discharge. TD: 03/18/2019 09:23 MASOUD
== END 2019-03-16 17:10 | DRG 291 ==
LOC: EDBD → EDUNIT# → ED 09:57 → MS2 15:24
PROVIDERS: ADMIT Internal Medicine; ATTEND Specialist
DX: I11.0 Hypertensive heart disease with heart failure (principal); I50.9 Heart failure, unspecified; J18.9 Pneumonia, unspecified organism; J44.0 Chronic obstructive pulmonary disease with (acute) lower respiratory infection; R06.3 Periodic breathing; I50.43 Acute on chronic combined systolic (congestive) and diastolic (congestive) heart failure; I48.91 Unspecified atrial fibrillation; F10.20 Alcohol dependence, uncomplicated; I87.8 Other specified disorders of veins; I25.10 Atherosclerotic heart disease of native coronary artery without angina pectoris; E78.5 Hyperlipidemia, unspecified; N40.0 Benign prostatic hyperplasia without lower urinary tract symptoms; R09.02 Hypoxemia; I27.20 Pulmonary hypertension, unspecified; I89.0 Lymphedema, not elsewhere classified; B37.2 Candidiasis of skin and nail; I44.7 Left bundle-branch block, unspecified; F10.10 Alcohol abuse, uncomplicated; R41.0 Disorientation, unspecified; Z66 Do not resuscitate; Z95.5 Presence of coronary angioplasty implant and graft; Z79.82 Long term (current) use of aspirin; Z79.899 Other long term (current) drug therapy; Z86.79 Personal history of other diseases of the circulatory system; Z91.81 History of falling
CPT/HCPCS: 36415; 70450; 71045; 80048; 80053; 81003; 82140; 82607; 83690; 83735; 83880; 84443; 84484; 85025; 85610; 93005; 93306; 94640; 96374; 96375; 97116; 97161; 97166; 97530; 99284; 99285; A6250; A9270; 80320; 81001; 87086

== ENCOUNTER 2019-05-05 08:00 | Outpatient (CLI) | payer MEDICARE ==
[2019-05-05 17:51] LABS: BASOPHILS # (AUTO) 0.1 10^3/uL (0.0-0.1); BASOPHILS % (AUTO) 1.1 %; EOSINOPHILS # (AUTO) 0.2 10^3/uL (0.0-0.7); EOSINOPHILS % (AUTO) 3.5 %; HGB - HEMOGLOBIN 12.2 g/dL (14.0-18.0); LYMPHOCYTES # (AUTO) 1.6 10^3/uL (1.5-3.5); LYMPHOCYTES % (AUTO) 25.8 %; MEAN CORPUSCULAR HEMOGLOBIN 30.3 pg (27.0-31.0); MEAN PLATELET VOLUME 10.3 fL (7.4-11.4); MONOCYTES # (AUTO) 0.7 10^3/uL (0.0-1.0); MONOCYTES % (AUTO) 11.6 %; NEUTROPHILS # (AUTO) 3.6 10^3/uL (1.5-6.6); NEUTROPHILS % (AUTO) 57.4 %; PLT - PLATELET COUNT 165 10^3/uL (130-450); RED BLOOD COUNT 4.02 10^6/uL (4.70-6.10); RED CELL DISTRIBUTION WIDTH 14.3 % (12.0-15.0); WHITE BLOOD COUNT 6.3 x10^3/uL (4.8-10.8)
[2019-05-05 18:16] LABS: ALBUMIN 3.9 g/dL (3.2-5.5); ALBUMIN/GLOBULIN RATIO 1.2 (1.0-2.2); BILIRUBIN,TOTAL 0.8 mg/dL (0.2-1.0); CALCIUM 9.2 mg/dL (8.5-10.3); CREATININE 1.2 mg/dL (0.6-1.2); TOTAL PROTEIN 7.1 g/dL (6.7-8.2)
[2019-05-05 18:27] LABS: FERRITIN 114.9 ng/mL (23.9-336.2)
[2019-05-05 18:30] LABS: FOLATE 9.19 ng/mL (5.90 - >24.8)
== END 2019-05-05 23:59 | disposition home or self-care (01) ==
LOC: LAB.S 08:00
PROVIDERS: ATTEND Internal Medicine
DX: Z00.00 Encounter for general adult medical examination without abnormal findings (principal); N40.1 Benign prostatic hyperplasia with lower urinary tract symptoms; N13.8 Other obstructive and reflux uropathy; I25.9 Chronic ischemic heart disease, unspecified; L25.9 Unspecified contact dermatitis, unspecified cause; F03.90 Unspecified dementia, unspecified severity, without behavioral disturbance, psychotic disturbance, mood disturbance, and anxiety; R60.9 Edema, unspecified; B74.9 Filariasis, unspecified; E78.5 Hyperlipidemia, unspecified; R73.01 Impaired fasting glucose; N52.9 Male erectile dysfunction, unspecified; G47.00 Insomnia, unspecified; I44.7 Left bundle-branch block, unspecified; R41.3 Other amnesia; E66.9 Obesity, unspecified; F10.20 Alcohol dependence, uncomplicated; Z86.010 Personal history of colon polyps; Z86.711 Personal history of pulmonary embolism; Z86.718 Personal history of other venous thrombosis and embolism; G47.30 Sleep apnea, unspecified; B35.1 Tinea unguium; I11.0 Hypertensive heart disease with heart failure; I50.9 Heart failure, unspecified; H91.90 Unspecified hearing loss, unspecified ear; E53.8 Deficiency of other specified B group vitamins; R26.81 Unsteadiness on feet; D64.9 Anemia, unspecified
CPT/HCPCS: 36415; 80053; 82607; 82728; 82746; 83540; 83880; 84466; 85025

== ENCOUNTER 2019-05-28 13:31 | Outpatient (CLI) | payer MEDICARE ==
[~2019-05-28 13:31] MED LIST: ALBUTEROL NEB 2.5 MG/3 ML INH SCH
== END 2019-05-28 13:32 | disposition home or self-care (01) ==
LOC: RT 13:31
PROVIDERS: ATTEND Internal Medicine
DX: R06.02 Shortness of breath (principal)
CPT/HCPCS: 94010

== ENCOUNTER 2019-05-29 11:29 | Outpatient (CLI) | payer MEDICARE ==
--- NOTE | 2019-05-29 15:53 | XRAY Report ---
Reason: SHORTNESS OF BREATH Procedure Date: 05/29/2019 Accession Number: [id number] / [id number] Procedure: XRS - Chest 2 View X-Ray CPT Code: 65101 Final Report FULL RESULT: EXAM: CHEST RADIOGRAPHY EXAM DATE: 05/29/2019 11:47 AM. CLINICAL HISTORY: SHORTNESS OF BREATH. COMPARISON: CHEST FOR LINE PLACEMENT 03/13/2019 10:08 AM CHEST 1 VIEW 03/12/2019 10:05 AM. TECHNIQUE: 2 views. FINDINGS: Lungs/Pleura: There has been significant improvement in bilateral pleural effusions since the prior with only a small right pleural effusion remaining. Lungs are otherwise well-expanded and clear. Mediastinum: Stable mild cardiomegaly. Mediastinal contour otherwise unremarkable. Other: None. IMPRESSION: 1. Near complete resolution of previous pleural effusions with only a small right pleural effusion remaining. 2. Lungs are otherwise clear. RADIA
== END 2019-05-29 11:30 | disposition home or self-care (01) ==
LOC: DI.S 11:29
PROVIDERS: ATTEND Internal Medicine
DX: J90 Pleural effusion, not elsewhere classified (principal)
CPT/HCPCS: 71046

== ENCOUNTER 2019-10-06 12:33 | Outpatient (CLI) | payer MEDICARE | END 2019-10-06 12:34 | disposition critical access hospital (66) | LOC: EMS 12:33 | PROVIDERS: ATTEND Surgery | DX: R06.00 Dyspnea, unspecified (principal) | CPT/HCPCS: A0425; A0427 ==

== ENCOUNTER 2019-10-06 13:02 | Inpatient (IN) | payer MEDICARE ==
--- NOTE | 2019-10-06 13:46 | ED Physician Documentation ---
History of Present Illness - Stated complaint Stated Complaint: AFIB - Chief complaint Chief Complaint: Resp - History obtained from History obtained from: Patient, EMS - History of Present Illness Timing: Prior to arrival Pain level max: 0 Pain level now: 0 - Additonal information Additional information: 83-year-old male presents to the emergency department with chief complaint of feeling short of air and RVR at home. He does have a history of atrial fibrillation. Patient reports to me that he became upset with his caregivers and then was short of breath. EMS was summoned. Once EMS arrived he was noted to have a heart rate in the 160s. He was given 25 mg of Cardizem and his heart rate successfully dropped into the low 100s. However he was noted to have sats in the 60s with wheeze. He was given a nonrebreather and albuterol. On presentation to the emergency department his sats are 98% on a 100% nonrebreather. He denies feeling short of air though he is dyspneic in his conversation. Review of Systems Constitutional: denies: Fever, Chills Eyes: denies: Loss of vision Ears: denies: Loss of hearing Nose: denies: Rhinorrhea / runny nose, Foreign Body Throat: denies: Dental pain / toothache, Oral lesions / sores Cardiac: reports: Palpitations, Pedal edema. denies: Chest pain / pressure Respiratory: reports: Dyspnea, Wheezing. denies: Cough, Hemoptysis GI: denies: Abdominal Pain, Abdominal Swelling : denies: Dysuria, Frequency Skin: reports: Rash, Lesions Musculoskeletal: reports: Extremity swelling (Both legs with noted bilateral lymphedema.). denies: Neck pain Neurologic: denies: Difficulty speaking, Syncope, Seizure, Confused, Altered mental status Psychiatric: denies: Depressed PD PAST MEDICAL HISTORY - Past Medical History Past Medical History: Yes Cardiovascular: Hypertension, High cholesterol Respiratory: None Neuro: Dementia, Other Endocrine/Autoimmune: None GI: None : Benign prostate hypertrophy HEENT: None Psych: None Musculoskeletal: None Derm: None - Past Surgical History Past Surgical History: Yes Cardiovascular: Coronary stent - Present Medications Home Medications: Ambulatory Orders Medication Instructions Recorded Confirmed Aspirin [Aspir 81] 81 mg PO DAILY 11/22/13 03/07/19 Atorvastatin Calcium 80 mg PO DAILY 11/22/13 03/07/19 Tamsulosin HCl [Flomax] 0.4 mg PO DAILY 11/22/13 03/07/19 Finasteride [Propecia] 1 mg PO DAILY 04/26/17 03/07/19 Metoprolol Succinate 50 mg PO DAILY 03/07/19 03/07/19 Acetaminophen [Tylenol] 650 mg PO Q4HR PRN tablet 03/14/19 Albuterol 2.5 mg INH RTQ4H PRN neb 03/14/19 Bumetanide [Bumex] 1 mg PO BIDDIURETIC #60 tablet 03/14/19 Metoprolol Succinate [Toprol Xl] 50 mg PO BID #60 tablet 03/14/19 Nystatin [Nystop] 1 applic TOP BID #45 bottle 03/14/19 Vitamin [Trinatal Rx 1] 1 tab PO DAILYWM tablet 03/14/19 Thiamine [Vitamin B-1] 100 mg PO DAILY tablet 03/14/19 lisinopriL [Zestril] 10 mg PO DAILY #30 tablet 03/14/19 - Allergies Allergies/Adverse Reactions: Allergies Allergy/AdvReac Type Severity Reaction Status Date / Time No Known Drug Allergies Allergy Verified 11/22/13 09:11 - Social History Does the pt smoke?: No Smoking Status: Never smoker Does the pt drink ETOH?: Yes Does the pt have substance abuse?: No - Immunizations Immunizations are current?: Yes PD ED PE NORMAL - General General: Alert and oriented X 3 - HEENT HEENT: Atraumatic, PERRL, EOMI - Neck Neck: Supple, no meningeal sign - Cardiac Cardiac: Other (systolic murmur) - Respiratory Respiratory: Clear bilaterally, Other (dyspneic; RR 40's with conversation; 20's as rest) - Abdomen Abdomen: Normal bowel sounds, Non tender, Non distended - Back Back: No CVA TTP, No spinal TTP - Extremities Extremities: Other (Extensive lymphedema bilateral lower extremities. No calf pain swelling or tenderness.) - Neuro Neuro: Alert and oriented X 3, crab fisher 2-12 intact, No motor deficit Results - Vitals Vitals: Vital Signs - 24 hr 10/06/19 13:03 Temperature 36.6 C Heart Rate 95 Respiratory 23 Rate Blood Pressure 135/92 H O2 Saturation 99 Oxygen O2 Source [] 1L via nc O2 Source [] Room air O2 Source Non-rebreather mask Oxygen Flow Rate 2 - EKG (time done) 1308 Rate: Rate (enter#) (99) Rhythm: Atrial fibrillation [place]: Other Intervals: Normal WI QRS: LVH Ischemia: Q waves, Non specific changes Compare to prior EKG: Changed from prior EKG (atrial fib, rate 99; anterior q waves V1V2) Computer interpretation: Agree with computer - Labs Labs: Laboratory Tests 10/06/19 10/06/19 10/06/19 14:24 14:24 14:24 WBC 6.4 RBC 4.34 L Hgb 13.0 L Hct 40.6 L MCV 93.5 MCH 30.0 MCHC 32.0 RDW 13.9 Plt Count 146 MPV 10.0 Neut # (Auto) 4.8 Lymph # (Auto) 0.8 L Rhea # (Auto) 0.5 Eos # (Auto) 0.2 Baso # (Auto) 0.1 Absolute Nucleated RBC 0.00 Nucleated RBC % 0.0 Sodium 136 Potassium 4.6 Chloride 100 L Carbon Dioxide 27 Anion Gap 9.0 BUN 17 Creatinine 1.1 Estimated GFR (MDRD) 64 L Glucose 154 H Lactic Acid Calcium 9.0 Total Bilirubin 1.0 AST 20 ALT 16 Alkaline Phosphatase 60 Troponin I High Sens 32.7 H* B-Natriuretic Peptide Total Protein 6.9 Albumin 3.6 Globulin 3.3 Albumin/Globulin Ratio 1.1 Lipase 25 10/06/19 10/06/19 14:24 14:24 WBC RBC Hgb Hct MCV MCH MCHC RDW Plt Count MPV Neut # (Auto) Lymph # (Auto) Rhea # (Auto) Eos # (Auto) Baso # (Auto) Absolute Nucleated RBC Nucleated RBC % Sodium Potassium Chloride Carbon Dioxide Anion Gap BUN Creatinine Estimated GFR (MDRD) Glucose Lactic Acid 1.1 Calcium Total Bilirubin AST ALT Alkaline Phosphatase Troponin I High Sens B-Natriuretic Peptide 260 H Total Protein Albumin Globulin Albumin/Globulin Ratio Lipase - Rads (name of study) CXR Radiology: Final report received (Findings consistent with pulmonary edema concurrent infectious inflammatory process not excluded if clinically appropriate.) PD MEDICAL DECISION MAKING - ED course Complexity details: reviewed old records, reviewed results, re-evaluated patient, d/w patient ED course: 83-year-old gentleman presented to the emergency department via EMS for evaluation of atrial fib RVR with a heart rate in the 160s as well as noted dyspnea and hypoxia. -Patient was noted to have sats in the 60s at home and was placed on 100% non- rebreather. Here in the emergency department his sats have been in the low 90s on 4 to 6 L nasal cannula. Chest x-ray reveals pulmonary edema. He has been given 20 mg of Lasix for this. - He is dyspneic at rest though it has improved during the course of the emergency department stay. He does not have any history of requiring oxygen at home.- Patient is noted to be in atrial fibrillation. He is not on any current anticoagulation his rate is controlled at present after paramedics gave Cardizem. - Patient will need further management of his acute CHF exacerbation here in the hospital.I spoke with Dr. Gómez who is agreed to admit the patient to the ICU as he likely needs close monitoring for his hypoxia and possibly BiPAP as well Departure - Departure Disposition: 66 [facility] DC/Xfer Clinical Impression: Hypoxia Acute exacerbation of CHF (congestive heart failure) Qualifiers: Heart failure type: unspecified Qualified Code(s): I50.9 - Heart failure, unspecified Dyspnea Qualifiers: Dyspnea type: shortness of breath Qualified Code(s): R06.02 - Shortness of breath; R06.00 - Dyspnea, unspecified; R06.01 - Orthopnea Atrial fibrillation Qualifiers: Atrial fibrillation type: paroxysmal Qualified Code(s): I48.0 - Paroxysmal atrial fibrillation Condition: Critical
--- NOTE | 2019-10-06 14:18 | XRAY Report ---
PROCEDURE: Chest 1 View X-Ray INDICATIONS: atrial fib TECHNIQUE: One view of the chest was acquired. COMPARISON: 05/29/2019, 03/12/2019 FINDINGS: Surgical changes and devices: None. Lungs and pleura: Diffuse interstitial prominence. There is some vascular congestion. Bilateral pleur al effusions larger on the right. Patchy bibasilar opacities. No pneumothorax. Mediastinum: Cardiomediastinal contours remain stable. Stable prominence of the cardiac silhouette. Bones and chest wall: No suspicious bony lesions. Overlying soft tissues appear unremarkable. IMPRESSION: Findings consistent with pulmonary edema. Concurrent infectious/inflammatory process not excluded if clinically appropriate. Recommend follow-up chest radiograph 4-6 weeks after treatment to document resolution of findings and /or return to baseline exam. Reviewed by: Benito Gonzalez MD on 10/06/2019 2:16 PM PDT Approved by: Benito Gonzalez MD on 10/06/2019 2:16 PM PDT Station ID: [id number]
[2019-10-06] MEDS ORDERED: FUROSEMIDE 20 MG/2 ML VIAL IVP STA ×2 (14:24→17:01)
[2019-10-06 14:35] LABS: BASOPHILS # (AUTO) 0.1 10^3/uL (0.0-0.1); BASOPHILS % (AUTO) 1.6 %; EOSINOPHILS # (AUTO) 0.2 10^3/uL (0.0-0.7); LYMPHOCYTES # (AUTO) 0.8 10^3/uL (1.5-3.5); LYMPHOCYTES % (AUTO) 13.1 %; MEAN CORPUSCULAR VOLUME 93.5 fL (80.0-94.0); MONOCYTES # (AUTO) 0.5 10^3/uL (0.0-1.0); MONOCYTES % (AUTO) 7.3 %; NEUTROPHILS # (AUTO) 4.8 10^3/uL (1.5-6.6); NEUTROPHILS % (AUTO) 74.7 %; PLT - PLATELET COUNT 146 10^3/uL (130-450); RED BLOOD COUNT 4.34 10^6/uL (4.70-6.10); RED CELL DISTRIBUTION WIDTH 13.9 % (12.0-15.0); WHITE BLOOD COUNT 6.4 x10^3/uL (4.8-10.8)
[2019-10-06 14:47] LABS: ALBUMIN 3.6 g/dL (3.2-5.5); ALBUMIN/GLOBULIN RATIO 1.1 (1.0-2.2); CREATININE 1.1 mg/dL (0.6-1.2); TOTAL PROTEIN 6.9 g/dL (6.7-8.2)
[2019-10-06] MEDS ORDERED: ONDANSETRON 4 MG/2 ML VIAL IVP PRN (15:32)
[2019-10-06] MEDS ORDERED: ALBUTEROL NEB 2.5 MG/3 ML INH PRN (15:32)
[2019-10-06] MEDS ORDERED: ONDANSETRON ODT 4 MG TABLET TL PRN (15:32)
[2019-10-06] MEDS ORDERED: HYDROcod/ACETAM 5/325 MG TABLET PO PRN (15:32)
[2019-10-06] MEDS ORDERED: IPRATROPIUM 0.2 MG/ML NEB INH PRN (15:32)
[2019-10-06] MEDS ORDERED: METOPROLOL 5 MG/5 ML VIAL IVP PRN ×3 (15:41→17:56)
[2019-10-06] MEDS ORDERED: LEVALBUTEROL 1.25 MG/3 ML NEB INH PRN (15:58)
--- NOTE | 2019-10-06 16:03 | HISTORY & PHYSICAL EXAMINATION ---
Chief Complaint - Chief Complaint Chief Complaint: SOB History of Present Illness - History of Present Illness HPI Comment/Other: This is a 83-year-old gentleman with a past medical history significant for alcoholism, lymphedema of the bilateral lower extremities, chronic systolic and diastolic heart failure with EF of 45% and moderate diastolic heart failure which was detected on 2018 echo study, Coronary artery disease with stenting in the past, hx of dyspnear with pulmonary vascular congestion and a right-sided pleural effusion, hx of subarachnoid hemorrhage who presents today complaining of dyspnea When he became upset with his a caregiver on today. Patient is a poor historian. pt continue to report he made some mistake with [facility] and hosted alcohol drinker at his house. He report he has no child and no family member. Per EMS report, Patient was at home and became emotionally upset, then he had trouble breathing. EMS report pt has also A-fib with RVR at 160-180, and had sat 66% on room air. pt was Received 25mg Cardizem IVP in ER. pt remained 99% oxygen via NRM. But pt obvious has shortness of breath when he was on conversation. pt denies chest pain, fever, chill, headache, nausea, vomiting, diarrhea. A chest x-ray was suggestive of pulmonary vascular congestion and a right-sided pleural effusion. His labs were relatively unremarkable except for a BNP of 260. His troponin was 32.7. He was given a dose of 20mg Lasix IV in the emergency room. At the admission, I was able to discuss goals of care with the patient and he would like to be a full code. History - Past Medical History Cardiovascular: reports: Hypertension, High cholesterol Respiratory: reports: None Neuro: reports: Dementia, Other Endocrine/Autoimmune: reports: None GI: reports: None : reports: Benign prostate hypertrophy HEENT: reports: None Psych: reports: None Musculoskeletal: reports: None Derm: reports: None - Past Surgical History Cardiovascular: reports: Coronary stent - Family & Social History Family History Comment/Other: He reports his father at the age of 63 because of a myocardial infarction. He believes that he may have had hyperten nallely. 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 He has been 3 times. He currently lives at home alone and has a caregiver. He denies ever smoking. He does drink alcohol and reports consuming 2 drinks a night. He drinks approximately 3-4 nights a week. He reports his last drink was 2 days ago. - Substance History Use: Uses substance without health or social issues: Alcohol Meds/Allgy - Home Medications Home Medications: Ambulatory Orders Medication Instructions Recorded Confirmed Aspirin [Aspir 81] 81 mg PO DAILY 11/22/13 10/06/19 Atorvastatin Calcium 80 mg PO DAILY 11/22/13 10/06/19 Bumetanide [Bumex] 1 mg PO BIDDIURETIC #60 tablet 03/14/19 10/06/19 Finasteride [Proscar] 5 mg PO DAILY 10/06/19 10/06/19 Tamsulosin [Flomax] 0.4 mg PO DAILY 10/06/19 10/06/19 lisinopriL [Lisinopril] 40 mg PO DAILY 10/06/19 10/06/19 - Allergies Allergies/Adverse Reactions: Allergies Allergy/AdvReac Type Severity Reaction Status Date / Time No Known Drug Allergies Allergy Verified 11/22/13 09:11 Review of Systems - Constitutional Constitutional: denies: Fatigue, Fever, Chills, Malaise, Poor appetite, Night sweats - Eyes Eyes: denies: Pain, Blurred vision, Spots in vision, Field loss, Vision loss, Dipolpia - Ears, Nose & Throat Ears, Nose & Throat: denies: Ear pain, Vertigo, Nasal discharge, Nosebleeds, Sore throat, Bleeding gums - Cardiovascular Cariovascular: reports: Exertional dyspnea, Decr. exercise tolerance. denies: Irregular heart rate, Palpitations, Chest pain, Edema, Lightheadedness, Syncope - Respiratory Respiratory: reports: SOB at rest, SOB with exertion. denies: Cough, Sputum production, Wheezing, Snoring, Hemoptysis, Orthopnea - Gastrointestinal Gastrointestinal: denies: Abdominal pain, Constipation, Diarrhea, Rectal bleeding, Black stools, Bloody stools, Nausea, Vomiting, Gary blood emesis - Genitourinary Genitourinary: denies: Dysuria, Frequency, Urgency, Hematuria, Incontinence, Flank pain - Musculoskeletal Musculoskeletal: denies: Muscle pain, Back pain, Muscle aches, Stiffness, Limited range of motion, Muscle weakness - Integumentary Integumentary: denies: Dryness, Lumps - Neurological Neurological: denies: General weakness, Focal weakness, Headache, Dizziness, Numbness, Abnormal gait, Seizures, Incoordination, Slurred speech - Psychiatric Psychiatric: denies: Suicidal, Delusions, Hallucinations, Homicidal - Endocrine Endocrine: denies: Polyuria, Polyphagia - Hematologic/Lymphatic Hematologic/Lymphatic: denies: Anemia, Petechiae, Blood clots Exam - Vital Signs Vital Signs: Vital Signs x48h Temp Pulse Resp BP Pulse Ox 10/06/19 13:03 36.6 C 95 23 135/92 H 99 - Physical Exam General Appearance: positive: Alert, Mild distress. negative: Lethargic Eyes Bilateral: positive: Normal inspection, PERRL, No lid inflammation ENT: positive: ENT inspection nml, No signs of dehydration. negative: Purulent nasal drainage, Dry mucous membranes Neck: positive: Nml inspection, Thyroid nml, No JVD, Trachea midline. negative: Thyromegaly, Stiff neck, Tracheal deviation Respiratory: positive: Chest non-tender, Rales. negative: Wheezes, Rhonchi Cardiovascular: positive: No murmur, Irregularly irregular, Tachycardia, Systolic murmur Peripheral Pulses: positive: 2+ Abdomen: positive: Non-tender, No organomegaly, Nml bowel sounds. negative: Tenderness, Guarding, Rebound Back: positive: Nml inspection Skin: positive: Warm, Dry, Skin rash. negative: Cyanosis, Diaphoresis, Pallor Extremities: positive: Non-tender. negative: Calf tenderness, Pako's sign/cords Neurologic/Psychiatric: negative: Weakness, Sensory loss, Facial droop, Slurred/abnml speech, Depressed mood/affect Conclusion/Plan - Problem List (1) Respiratory failure with hypoxia Conclusion/Plan: Patient was found 66% of sats on room air when EMS was at the patient's home. Patient has a history of systolic and diastolic heart failure, chest x-ray show patient has significant significantly pulmonary edema special at right side lung. And patient was found he had heart rate around 160 when EMS was at the patient's [place]. Plan, We will give the patient diuretics, intravenous Lasix, we will do fluid restriction and daily weight, we will give patient intravenous metoprolol PRN and we will resume home medication metoprolol PO to control patient's heart rate. Because patient has history of for subarachnoid hemorrhagic. Patient only takes a baby aspirin in the home, but patient also has a history atrial fibrillation, we will closely monitor patient to see if patient improved, if patient not improve, we may be consideration with a CTA to rule out PE. (2) Acute exacerbation of CHF (congestive heart failure) Conclusion/Plan: Patient last echo in March 2019 show patient has 45% of the EF with moderate right side heart failure. Chest x-ray show bilaterally pulmonary edema and with pleural effusion, specially in the right side lung. We will give the patient diuretics, patient already was given Lasix 20 mg intravenous in the ER, we will supply supplemental of oxygen to the patient as needed. We will order new echo to monitor patient. We will resume home metoprolol and Lisinopril , will continue monitor with BNP. Qualifiers: Heart failure type: unspecified Qualified Code(s): I50.9 - Heart failure, unspecified (3) Atrial fibrillation with rapid ventricular response Conclusion/Plan: Patient has hx of atrial fibrillation with RVR , patient initially HR had around 160. patient was given 20 mg Cardizem in the ER, then patient HR was down to the around 120, we will continue patient home medication PO metoprolol and intravenous of metoprolol as needed, continue telemetry (4) Lymphedema Conclusion/Plan: Patient has a history of bilaterally lower extremity lymphedema, patient denies any infection or pain, will continue skin care, and support (5) Alcoholism Conclusion/Plan: Patient has history of alcoholism, patient denies he recently drink alcohol, we will closely monitor pt and encourage pt quit alcohol. (6) Hx of subarachnoid hemorrhage Conclusion/Plan: pt has hx of subarachnoid hemorrhage. Patient only take baby aspirin, given patient has history of atrial fibrillation. We will close monitor patient to see clinically improved otherwise we will may do CTA of the chest to rule out PE (7) HTN (hypertension) Conclusion/Plan: Stable, we will resume home lisinopril and metoprolol after confirmed (8) BPH (benign prostatic hyperplasia) Conclusion/Plan: Patient take Flomax and Proscar for his BPH, we will resume - Lab Results Fish Bones: 10/06/19 14:24 10/06/19 14:24 Core Measures - Anticipated LOS I expect patient to be DC'd or transferred within 96 hours.: Yes - DVT/VTE - Prophylaxis VTE/DVT Device ordered at admit?: Yes VTE/DVT Prophylaxis med ordered at admit?: Yes - Stroke - Rehab Assessment Rehab services assessment to be ordered?: Yes - AMI - Statin at Admit Aspirin Prescribed on Admit: Yes
[2019-10-06] MEDS ORDERED: AZITHROMYCIN 250 MG TABLET PO SCH (16:10)
[2019-10-06] MEDS ORDERED: FUROSEMIDE 40 MG/4 ML VIAL IVP SCH (16:30)
[2019-10-06] MEDS: SODIUM CHLORIDE FLUSH 0.9% 10 ML SYRINGE IVP PRN (17:14)
--- NOTE | 2019-10-06 17:37 | PHARMACY PROGRESS NOTE ---
- Best Possible Medication History Admit Date and Time: 10/06/19 1532 Processed by: Pharmacy Medication History completed: Yes Patient Interview: Completed Secondary Source(s): Prescription bottles, Pharmacy records, Insurance records As the person ultimately responsible for medication therapy, providers are able to order a medication from an existing home medication list in [facility] via the "Reconcile Routine" prior to Confirmation of that medication by operations support coordinator. Such practice is discouraged except when the physician, in their clinical judgment, deems that a medical need exists for a medication without regard to previous use.
[2019-10-06 17:46] LABS: BILIRUBIN,URINE NEGATIVE (NEGATIVE); CLARITY,URINE CLEAR (CLEAR); GLUCOSE, URINE (UA) NEGATIVE (NEGATIVE); KETONES,URINE (UA) NEGATIVE (NEGATIVE); LEUKOCYTE ESTERASE, URINE NEGATIVE (NEGATIVE); NITRITE,URINE NEGATIVE (NEGATIVE); OCCULT BLOOD,URINE TRACE-INTA (NEGATIVE); PROTEIN,URINE NEGATIVE (NEGATIVE); UROBILINOGEN,URINE 0.2 (NORMAL) E.U./dL (NORMAL)
[2019-10-06] MEDS: THIAMINE 100 MG TABLET PO SCH (17:53)
[2019-10-06] MEDS: SODIUM CHLORIDE FLUSH 0.9% 10 ML SYRINGE IVP SCH (17:54)
[2019-10-06] MEDS ORDERED: ALBUTEROL 1 PUFF INH PRN (20:21)
[2019-10-06] MEDS ORDERED: METOPROLOL SUCCINATE 50 MG TABLET PO SCH (21:00)
[2019-10-06] MEDS: NYSTATIN POWDER 15 GM TOP SCH (22:06)
[2019-10-07] MEDS: FUROSEMIDE 40 MG/4 ML VIAL IVP SCH ×2 (05:36→14:53)
[2019-10-07] MEDS: SODIUM CHLORIDE FLUSH 0.9% 10 ML SYRINGE IVP SCH ×3 (05:36→14:53)
[2019-10-07 05:48] LABS: BASOPHILS # (AUTO) 0.1 10^3/uL (0.0-0.1); BASOPHILS % (AUTO) 1.3 %; EOSINOPHILS # (AUTO) 0.4 10^3/uL (0.0-0.7); EOSINOPHILS % (AUTO) 5.5 %; HGB - HEMOGLOBIN 12.6 g/dL (14.0-18.0); LYMPHOCYTES % (AUTO) 29.1 %; MEAN CORPUSCULAR HEMOGLOBIN 29.9 pg (27.0-31.0); MEAN CORPUSCULAR HGB CONC 32.5 g/dL (32.0-36.0); MEAN CORPUSCULAR VOLUME 92.2 fL (80.0-94.0); MEAN PLATELET VOLUME 11.1 fL (7.4-11.4); MONOCYTES # (AUTO) 0.7 10^3/uL (0.0-1.0); MONOCYTES % (AUTO) 10.4 %; NEUTROPHILS # (AUTO) 3.6 10^3/uL (1.5-6.6); NEUTROPHILS % (AUTO) 53.6 %; PLT - PLATELET COUNT 129 10^3/uL (130-450); RED BLOOD COUNT 4.21 10^6/uL (4.70-6.10); RED CELL DISTRIBUTION WIDTH 13.7 % (12.0-15.0); WHITE BLOOD COUNT 6.7 x10^3/uL (4.8-10.8)
[2019-10-07 06:05] LABS: CALCIUM 8.9 mg/dL (8.5-10.3)
[2019-10-07] MEDS: ENOXAPARIN 40 MG/0.4 ML SYRINGE SUBQ SCH (08:09)
[2019-10-07] MEDS: lisinopriL 20 MG TABLET PO SCH (08:10)
[2019-10-07] MEDS: ASPIRIN CHEW 81 MG TABLET PO SCH (08:10)
[2019-10-07] MEDS: FINASTERIDE 5 MG TABLET PO SCH (08:11)
[2019-10-07] MEDS: PRENATAL VITAMIN TABLET PO SCH (08:12)
[2019-10-07] MEDS: ATORVASTATIN 40 MG TABLET PO SCH (08:13)
[2019-10-07] MEDS: TAMSULOSIN 0.4 MG CAPSULE PO SCH (08:13)
[2019-10-07] MEDS: THIAMINE 100 MG TABLET PO SCH (08:14)
[2019-10-07] MEDS ORDERED: ALBUTEROL NEB 2.5 MG/3 ML INH PRN (08:34)
[2019-10-07] MEDS ORDERED: IPRATROPIUM/ALBUTEROL 3 ML NEB INH PRN (08:34)
[2019-10-07] MEDS ORDERED: LEVALBUTEROL 1.25 MG/3 ML NEB INH PRN (08:37)
[2019-10-07] MEDS: METOPROLOL TARTRATE 25 MG TABLET PO SCH ×2 (08:59→21:02)
[2019-10-07] MEDS ORDERED: lisinopriL 5 MG TABLET PO SCH (09:00)
[2019-10-07] MEDS: NYSTATIN POWDER 15 GM TOP SCH ×2 (11:06→21:02)
--- NOTE | 2019-10-07 15:04 | PROVIDER PROGRESS NOTE ---
Assessment/Plan - Problem List (1) Respiratory failure with hypoxia Assessment/Plan: 10/06, Improved. Patient 1 now has 97% of sats on room air, patient has no breathing difficult. CXR will show pulmonary edema, new echo show patient has 45 to 50% EF with normal range of diastolic right side heart pressure. Continue diuretics with intravenous of Lasix 40 twice daily. Patient was found 66% of sats on room air when EMS was at the patient's home. Patient has a history of systolic and diastolic heart failure, chest x-ray show patient has significant significantly pulmonary edema special at right side lung. And patient was found he had heart rate around 160 when EMS was at the patient's [place]. Plan, We will give the patient diuretics, intravenous Lasix, we will do fluid restriction and daily weight, we will give patient intravenous metoprolol PRN and we will resume home medication metoprolol PO to control patient's heart rate. Because patient has history of for subarachnoid hemorrhagic. Patient only takes a baby aspirin in the home, but patient also has a history atrial fibrillation, we will closely monitor patient to see if patient improved, if patient not improve, we may be consideration with a CTA to rule out PE. (2) Acute exacerbation of CHF (congestive heart failure) Conclusion/Plan: 10/06,new echo show patient has 45 to 50% EF with normal range of diastolic right side heart pressure. Patient tolerated with intravenous of diuretics Lasix.We w ill continue fluids restriction, daily weight, will add metoprolol, continue lisinopril, And continue baby aspirin Patient last echo in March 2019 show patient has 45% of the EF with moderate right side heart failure. Chest x-ray show bilaterally pulmonary edema and with pleural effusion, specially in the right side lung. We will give the patient diuretics, patient already was given Lasix 20 mg intravenous in the ER, we will supply supplemental of oxygen to the patient as needed. We will order new echo to monitor patient. We will resume home metoprolol and Lisinopril , will continue monitor with BNP. (3) Atrial fibrillation with rapid ventricular response Conclusion/Plan: 624,Patient heart rate right now is below 100, patient is a prescription new medicine metoprolol PO, Continue PRN intravenous of metoprolol as needed.Continue baby aspirin at his home medication, because the patient has history of intracranial hemorrhage, no more anticoagulation. Patient has hx of atrial fibrillation with RVR , patient initially HR had around 160. patient was given 20 mg Cardizem in the ER, then patient HR was down to the around 120, we will continue patient home medication PO metoprolol and intravenous of metoprolol as needed, continue telemetry (4) Lymphedema Conclusion/Plan: 10/06, stable, continue skin care Patient has a history of bilaterally lower extremity lymphedema, patient denies any infection or pain, will continue skin care, and support (5) Alcoholism Conclusion/Plan: 10/06, Stable, without alcohol withdrawal, continue vitamin B1 and multi ple vitamin Patient has history of alcoholism, patient denies he recently drink alcohol, we will closely monitor pt and encourage pt quit alcohol. (6) Hx of subarachnoid hemorrhage Conclusion/Plan: 624,Stable, patient denies headache, as usual mental status, continue baby aspirin as his home medication, And blood pressure control pt has hx of subarachnoid hemorrhage. Patient only take baby aspirin, given patient has history of atrial fibrillation. We will close monitor patient to see clinically improved otherwise we will may do CTA of the chest to rule out PE (7) HTN (hypertension) Conclusion/Plan: Stable, we will resume home lisinopril and metoprolol after confirmed (8) BPH (benign prostatic hyperplasia) Conclusion/Plan: Patient take Flomax and Proscar for his BPH, we will resume (2) Acute exacerbation of CHF (congestive heart failure) Qualifiers: Heart failure type: unspecified Qualified Code(s): I50.9 - Heart failure, unspecified - Current Meds Current Meds: Current Medications Generic Name Dose Route Start Last Admin Trade Name Nayana PRN Reason Stop Dose Admin Aspirin 81 mg 10/07/19 09:00 10/07/19 08:10 [facility] Aspirin PO 81 mg DAILY HERLINDA Administration Atorvastatin Calcium 80 mg 10/07/19 09:00 10/07/19 08:13 Lipitor PO 80 mg DAILY HERLINDA Administration Enoxaparin Sodium 40 mg 10/07/19 09:00 10/07/19 08:09 Lovenox SUBQ 40 mg DAILY HERLINDA Administration Finasteride 5 mg 10/07/19 09:00 10/07/19 08:11 Proscar PO 5 mg DAILY HERLINDA Administration Furosemide 40 mg 10/07/19 06:00 10/07/19 14:53 Lasix Inj 40 Mg Vial IVP 40 mg BIDDIURETIC HERLINDA Administration Lisinopril 40 mg 10/07/19 09:00 10/07/19 08:10 Zestril PO 40 mg DAILY HERLINDA Administration Metoprolol Tartrate 25 mg 10/07/19 09:00 10/07/19 08:59 Lopressor PO 25 mg BID HERLINDA Administration Nystatin 1 applic 10/06/19 21:00 10/07/19 11:06 Nystop TOP 1 applic BID HERLINDA Administration Multivit/Folic Acid/Iron 1 tab 10/07/19 08:00 10/07/19 08:12 Trinatal Rx 1 PO 1 tab DAILYWM HERLINDA Administration Sodium Chloride 10 ml 10/06/19 17:00 10/07/19 14:53 Normal Saline Flush 0.9% IVP 10 ml 0100,0900,1700 HERLINDA Administration Sodium Chloride 10 ml 10/06/19 15:32 10/06/19 17:14 Normal Saline Flush 0.9% IVP 10 ml PRN PRN Administration NEEDED PER PROVIDER ORDERS Tamsulosin HCl 0.4 mg 10/07/19 09:00 10/07/19 08:13 Flomax PO 0.4 mg DAILY HERLINDA Administration Thiamine HCl 100 mg 10/06/19 17:00 10/07/19 08:14 Vitamin B-1 PO 100 mg DAILY HERLINDA Administration - Lab Result Fish Bone Diagrams: 10/07/19 04:33 10/07/19 04:33 - Additional Planning My Orders: My Active Orders 10/06/19 15:58 Nebulizer/MDI Tx. [RC] .Q4 PRN Resp Teach Nebulizer/MDI [RC] .ONCE 10/06/19 17:00 Thiamine [Vitamin B-1] 100 mg PO DAILY 10/06/19 17:35 Fluid Restriction [RC] ONCE 10/06/19 17:46 Telemetry- [RC] Q4HR 10/06/19 17:56 Metoprolol Inj [Lopressor Inj] 5 mg IVP Q6H PRN 10/07/19 Evaluate and Treat OT [OT] Routine Evaluate and Treat PT [PT] Routine 10/07/19 08:00 Vitamin [Trinatal Rx 1] 1 tab PO DAILYWM 10/07/19 08:34 Nebulizer/MDI Tx. [RC] QID Resp Teach Nebulizer/MDI [RC] .ONCE 10/07/19 08:37 Nebulizer/MDI Tx. [RC] QID Resp Teach Nebulizer/MDI [RC] .ONCE Levalbuterol [Xopenex] 1.25 mg INH Q4H PRN 10/07/19 09:00 Aspirin Chewable [[facility] Aspirin] 81 mg PO DAILY Atorvastatin [Lipitor] 80 mg PO DAILY Enoxaparin [Lovenox] 40 mg SUBQ DAILY Finasteride [Proscar] 5 mg PO DAILY Metoprolol Tartrate [Lopressor] 25 mg PO BID Tamsulosin [Flomax] 0.4 mg PO DAILY lisinopriL [Zestril] 40 mg PO DAILY 10/07/19 15:59 Echo Transthoracic Complete [ECHO] Routine 10/08/19 05:00 BNP - B-NATRIURETIC PEPTIDE [IAI] DAILYLAB CBC - COMP BLD CT W/AUTO DIFF [HEME] DAILYLAB 10/09/19 05:00 BNP - B-NATRIURETIC PEPTIDE [IAI] DAILYLAB CBC - COMP BLD CT W/AUTO DIFF [HEME] DAILYLAB 10/10/19 05:00 BNP - B-NATRIURETIC PEPTIDE [IAI] DAILYLAB CBC - COMP BLD CT W/AUTO DIFF [HEME] DAILYLAB 10/11/19 05:00 CBC - COMP BLD CT W/AUTO DIFF [HEME] DAILYLAB Subjective - Subjective Patient Reports: Feeling Better Objective Vital Signs: Vital Signs - 24 hr 10/06/19 10/06/19 10/06/19 16:25 17:14 17:15 Temperature Heart Rate Heart Rate [ Activity] Heart Rate [ 122 H 119 H Monitoring electrodes] Heart Rate [ Sitting] Respiratory 24 21 Rate Blood Pressure 147/96 H Blood Pressure [Activity] Blood Pressure 150/91 H 139/88 H [Right Brachial artery] Blood Pressure [Sitting] O2 Saturation 100 98 10/06/19 10/06/19 10/06/19 17:22 17:38 17:44 Temperature 36.7 C Heart Rate Heart Rate [ Activity] Heart Rate [ 95 94 Monitoring electrodes] Heart Rate [ Sitting] Respiratory Rate Blood Pressure 112/72 Blood Pressure [Activity] Blood Pressure 139/88 H 112/72 [Right Brachial artery] Blood Pressure [Sitting] O2 Saturation 10/06/19 10/06/19 10/06/19 18:06 19:05 21:00 Temperature 36.8 C Heart Rate Heart Rate [ Activity] Heart Rate [ 112 H 113 H 95 Monitoring electrodes] Heart Rate [ Sitting] Respiratory 19 18 21 Rate Blood Pressure Blood Pressure [Activity] Blood Pressure 137/105 H 129/83 H 140/84 H [Right Brachial artery] Blood Pressure [Sitting] O2 Saturation 99 99 97 10/06/19 10/07/19 10/07/19 22:20 00:06 04:35 Temperature 36.8 C 36.4 C L 36.4 C L Heart Rate 95 Heart Rate [ Activity] Heart Rate [ 93 100 Monitoring electrodes] Heart Rate [ Sitting] Respiratory 20 23 24 Rate Blood Pressure Blood Pressure [Activity] Blood Pressure 123/79 127/73 [Right Brachial artery] Blood Pressure [Sitting] O2 Saturation 97 98 92 10/07/19 10/07/19 10/07/19 08:04 08:59 10:50 Temperature 36.6 C Heart Rate Heart Rate [ Activity] Heart Rate [ 112 H Monitoring electrodes] Heart Rate [ 97 Sitting] Respiratory 28 H Rate Blood Pressure 142/85 H Blood Pressure [Activity] Blood Pressure 142/85 H [Right Brachial artery] Blood Pressure 119/91 H [Sitting] O2 Saturation 98 10/07/19 10/07/19 10:55 12:04 Temperature 36.6 C Heart Rate Heart Rate [ 97 Activity] Heart Rate [ 94 Monitoring electrodes] Heart Rate [ Sitting] Respiratory 19 Rate Blood Pressure Blood Pressure 119/91 H [Activity] Blood Pressure 119/91 H [Right Brachial artery] Blood Pressure [Sitting] O2 Saturation 98 Oxygen O2 Source [With Activity] 1L via nc O2 Source [Without Activity] Room air O2 Source Nasal cannula Oxygen Flow Rate 2 I&O (Last 24 Hrs): Intake and Output Totals x24h 10/05/19 10/06/19 10/07/19 23:59 23:59 23:59 Intake Total 340 660 Output Total 300 Balance 40 660 General: Alert, No acute distress HEENT: Atraumatic Neck: Supple Lymphatic: no adenopathy Neuro: Alert, Non Focal Cardiovascular: Normal S1, Normal S2 Respiratory: Chest non-tender, No respiratory distress Abdomen: Normal bowel sounds, Soft, No tenderness Extremities: Normal pulses - Results Results: Laboratory Results WBC 6.7 x10^3/uL (4.8-10.8) 10/07/19 04:33 RBC 4.21 10^6/uL (4.70-6.10) L 10/07/19 04:33 Hgb 12.6 g/dL (14.0-18.0) L 10/07/19 04:33 Hct 38.8 % (42.0-52.0) L 10/07/19 04:33 MCV 92.2 fL (80.0-94.0) 10/07/19 04:33 MCH 29.9 pg (27.0-31.0) 10/07/19 04:33 MCHC 32.5 g/dL (32.0-36.0) 10/07/19 04:33 RDW 13.7 % (12.0-15.0) 10/07/19 04:33 Plt Count 129 10^3/uL (130-450) L 10/07/19 04:33 MPV 11.1 fL (7.4-11.4) 10/07/19 04:33 Neut # (Auto) 3.6 10^3/uL (1.5-6.6) 10/07/19 04:33 Lymph # (Auto) 2.0 10^3/uL (1.5-3.5) 10/07/19 04:33 [place] # (Auto) 0.7 10^3/uL (0.0-1.0) 10/07/19 04:33 Eos # (Auto) 0.4 10^3/uL (0.0-0.7) 10/07/19 04:33 Baso # (Auto) 0.1 10^3/uL (0.0-0.1) 10/07/19 04:33 Absolute Nucleated RBC 0.00 x10^3/uL 10/07/19 04:33 Nucleated RBC % 0.0 /100WBC 10/07/19 04:33 Sodium 138 mmol/L (135-145) 10/07/19 04:33 Potassium 3.7 mmol/L (3.5-5.0) 10/07/19 04:33 Chloride 101 mmol/L (101-111) 10/07/19 04:33 Carbon Dioxide 28 mmol/L (21-32) 10/07/19 04:33 Anion Gap 9.0 (6-13) 10/07/19 04:33 BUN 16 mg/dL (6-20) 10/07/19 04:33 Creatinine 1.0 mg/dL (0.6-1.2) 10/07/19 04:33 Estimated GFR (MDRD) 71 (>89) L 10/07/19 04:33 Glucose 95 mg/dL (70-100) 10/07/19 04:33 Lactic Acid 1.1 mmol/L (0.5-2.2) 10/06/19 14:24 Calcium 8.9 mg/dL (8.5-10.3) 10/07/19 04:33 Total Bilirubin 1.0 mg/dL (0.2-1.0) 10/06/19 14:24 AST 20 IU/L (10-42) 10/06/19 14:24 ALT 16 IU/L (10-60) 10/06/19 14:24 Alkaline Phosphatase 60 IU/L (42-121) 10/06/19 14:24 Troponin I High Sens 35.7 ng/L (2.3-19.7) H* 10/07/19 04:33 B-Natriuretic Peptide 398 pg/mL (5-100) H 10/07/19 04:33 Total Protein 6.9 g/dL (6.7-8.2) 10/06/19 14:24 Albumin 3.6 g/dL (3.2-5.5) 10/06/19 14:24 Globulin 3.3 g/dL (2.1-4.2) 10/06/19 14:24 Albumin/Globulin Ratio 1.1 (1.0-2.2) 10/06/19 14:24 Lipase 25 U/L (22-51) 10/06/19 14:24 Urine Color YELLOW 10/06/19 16:45 Urine Clarity CLEAR (CLEAR) 10/06/19 16:45 Urine pH 6.0 PH (5.0-7.5) 10/06/19 16:45 Ur Specific [place] 1.010 (1.002-1.030) 10/06/19 16:45 Urine Protein NEGATIVE mg/dL (NEGATIVE) 10/06/19 16:45 Urine Glucose (UA) NEGATIVE mg/dL (NEGATIVE) 10/06/19 16:45 Urine Ketones NEGATIVE mg/dL (NEGATIVE) 10/06/19 16:45 Urine Occult Blood TRACE-INTA (NEGATIVE) 10/06/19 16:45 Urine Nitrite NEGATIVE (NEGATIVE) 10/06/19 16:45 Urine Bilirubin NEGATIVE (NEGATIVE) 10/06/19 16:45 Urine Urobilinogen 0.2 (NORMAL) E.U./dL (NORMAL) 10/06/19 16:45 Ur Leukocyte Esterase NEGATIVE (NEGATIVE) 10/06/19 16:45 Ur Microscopic Review NOT INDICATED 10/06/19 16:45 Urine Culture Comments NOT INDICATED 10/06/19 16:45 Nasal Screen MRSA (PCR) NEGATIVE (NEGATIVE) 10/06/19 16:30 Coronavirus (PCR) NEGATIVE 10/06/19 16:30 Sepsis Event Note (H) - Evaluation Current Stage of Sepsis: Ruled out ABX Reporting Has patient been on IV antibiotics over the past 48 hours?: No Current Medications - Current Medications Current Medications: Active Medications Hydrocodone Bitart/Acetaminophen ([place] 5/325) 1 tab PO Q4HR PRN PRN Reason: Pain 5 to 7 Aspirin ([facility] Aspirin) 81 mg PO DAILY [facility] Last Admin: 10/07/19 08:10 Dose: 81 mg Documented by: Atorvastatin Calcium (Lipitor) 80 mg PO DAILY [facility] Last Admin: 10/07/19 08:13 Dose: 80 mg Documented by: Enoxaparin Sodium (Lovenox) 40 mg SUBQ DAILY [facility] Last Admin: 10/07/19 08:09 Dose: 40 mg Documented by: Finasteride (Proscar) 5 mg PO DAILY [facility] Last Admin: 10/07/19 08:11 Dose: 5 mg Documented by: Furosemide (Lasix Inj 40 Mg Vial) 40 mg IVP BIDDIURETIC [facility] Last Admin: 10/07/19 14:53 Dose: 40 mg Documented by: Levalbuterol HCl (Xopenex) 1.25 mg INH Q4H PRN PRN Reason: Shortness of Air/Wheezing Lisinopril (Zestril) 40 mg PO DAILY [facility] Last Admin: 10/07/19 08:10 Dose: 40 mg Documented by: Metoprolol Tartrate (Lopressor Inj) 5 mg IVP Q6H PRN PRN Reason: Tachycardia Metoprolol Tartrate (Lopressor) 25 mg PO BID [facility] Last Admin: 10/07/19 08:59 Dose: 25 mg Documented by: Nystatin (Nystop) 1 applic TOP BID [facility] Last Admin: 10/07/19 11:06 Dose: 1 applic Documented by: Ondansetron HCl (Zofran Odt) 4 mg TL Q6HR PRN PRN Reason: Nausea / Vomiting Ondansetron HCl (Zofran Inj) 4 mg IVP Q6HR PRN PRN Reason: Nausea / Vomiting Multivit/Folic Acid/Iron (Trinatal Rx 1) 1 tab PO DAILYWM [facility] Last Admin: 10/07/19 08:12 Dose: 1 tab Documented by: Sodium Chloride (Normal Saline Flush 0.9%) 10 ml IVP 0100,0900,1700 [facility] Last Admin: 10/07/19 14:53 Dose: 10 ml Documented by: Sodium Chloride (Normal Saline Flush 0.9%) 10 ml IVP PRN PRN PRN Reason: NEEDED PER PROVIDER ORDERS Last Admin: 10/06/19 17:14 Dose: 10 ml Documented by: Tamsulosin HCl (Flomax) 0.4 mg PO DAILY [facility] Last Admin: 10/07/19 08:13 Dose: 0.4 mg Documented by: Thiamine HCl (Vitamin B-1) 100 mg PO DAILY [facility] Last Admin: 10/07/19 08:14 Dose: 100 mg Documented by: Aspirin [Aspir 81] 81 mg PO DAILY 11/22/13 Atorvastatin Calcium 80 mg PO DAILY 11/22/13 Finasteride [Proscar] 5 mg PO DAILY 10/06/19 Tamsulosin [Flomax] 0.4 mg PO DAILY 10/06/19 lisinopriL [Lisinopril] 40 mg PO DAILY 10/06/19
[2019-10-08] MEDS: SODIUM CHLORIDE FLUSH 0.9% 10 ML SYRINGE IVP SCH ×3 (01:21→18:10)
[2019-10-08 05:49] LABS: BASOPHILS # (AUTO) 0.1 10^3/uL (0.0-0.1); BASOPHILS % (AUTO) 1.4 %; EOSINOPHILS # (AUTO) 0.5 10^3/uL (0.0-0.7); EOSINOPHILS % (AUTO) 7.5 %; HGB - HEMOGLOBIN 12.8 g/dL (14.0-18.0); LYMPHOCYTES # (AUTO) 2.3 10^3/uL (1.5-3.5); LYMPHOCYTES % (AUTO) 31.9 %; MEAN CORPUSCULAR HEMOGLOBIN 29.8 pg (27.0-31.0); MEAN CORPUSCULAR HGB CONC 32.7 g/dL (32.0-36.0); MEAN CORPUSCULAR VOLUME 90.9 fL (80.0-94.0); MEAN PLATELET VOLUME 10.4 fL (7.4-11.4); MONOCYTES # (AUTO) 0.8 10^3/uL (0.0-1.0); MONOCYTES % (AUTO) 11.6 %; NEUTROPHILS # (AUTO) 3.4 10^3/uL (1.5-6.6); NEUTROPHILS % (AUTO) 47.3 %; PLT - PLATELET COUNT 137 10^3/uL (130-450); RED CELL DISTRIBUTION WIDTH 13.9 % (12.0-15.0); WHITE BLOOD COUNT 7.1 x10^3/uL (4.8-10.8)
[2019-10-08 05:58] LABS: CALCIUM 9.1 mg/dL (8.5-10.3); CREATININE 1.1 mg/dL (0.6-1.2)
[2019-10-08] MEDS: FUROSEMIDE 40 MG/4 ML VIAL IVP SCH ×2 (06:53→14:00)
[2019-10-08] MEDS: SODIUM CHLORIDE FLUSH 0.9% 10 ML SYRINGE IVP PRN (06:54)
[2019-10-08] MEDS ORDERED: POTASSIUM CHLORIDE 20 MEQ TABLET PO ONE (07:18)
[2019-10-08] MEDS: TAMSULOSIN 0.4 MG CAPSULE PO SCH (10:10)
[2019-10-08] MEDS: THIAMINE 100 MG TABLET PO SCH (10:10)
[2019-10-08] MEDS: lisinopriL 20 MG TABLET PO SCH (10:11)
[2019-10-08] MEDS: METOPROLOL TARTRATE 25 MG TABLET PO SCH ×2 (10:11→21:25)
[2019-10-08] MEDS: ATORVASTATIN 40 MG TABLET PO SCH (10:14)
[2019-10-08] MEDS: ASPIRIN CHEW 81 MG TABLET PO SCH (10:14)
[2019-10-08] MEDS: PRENATAL VITAMIN TABLET PO SCH (10:14)
[2019-10-08] MEDS: NYSTATIN POWDER 15 GM TOP SCH ×2 (10:15→21:26)
[2019-10-08] MEDS: polyethylene glycoL 3350 17 GM PACKET PO SCH (10:15)
[2019-10-08] MEDS: FINASTERIDE 5 MG TABLET PO SCH (10:25)
[2019-10-08] MEDS: ENOXAPARIN 40 MG/0.4 ML SYRINGE SUBQ SCH (10:29)
--- NOTE | 2019-10-08 11:41 | PROVIDER PROGRESS NOTE ---
Assessment/Plan - Problem List (1) Respiratory failure with hypoxia Assessment/Plan: 10/07, breathing was improved significantly and did not show SOB when he talk, patient has 96-98% sats on room air. Patient was given diuretics, it is likely diuretics reduce pulmonary edema and improve patient respiratory status. We will continue diuretics, slightly reduce diuretics dosage because test to show patient has mild elevated creatinine/BUN 10/06, Improved. Patient 1 now has 97% of sats on room air, patient has no breathing difficult. CXR will show pulmonary edema, new echo show patient has 45 to 50% EF with normal range of diastolic right side heart pressure. Continue diuretics with intravenous of Lasix 40 twice daily. Patient was found 66% of sats on room air when EMS was at the patient's home. Lion suarez has a history of systolic and diastolic heart failure, chest x-ray show patient has significant significantly pulmonary edema special at right side lung. And patient was found he had heart rate around 160 when EMS was at the patient's [place]. Plan, We will give the patient diuretics, intravenous Lasix, we will do fluid restriction and daily weight, we will give patient intravenous metoprolol PRN and we will resume home medication metoprolol PO to control patient's heart rate. Because patient has history of for subarachnoid hemorrhagic. Patient only takes a baby aspirin in the home, but patient also has a history atrial fibrillation, we will closely monitor patient to see if patient improved, if patient not improve, we may be consideration with a CTA to rule out PE. (2) Acute exacerbation of CHF (congestive heart failure) Conclusion/Plan: 625, improved, patient breathing is significantly improved. Out of the bed for 4 time daily, Encourage patient ambulate safely with nurse, continue PT/OT. Continue diuretics. 10/06,new echo show patient has 45 to 50% EF with normal range of diastolic right side heart pressure. Patient tolerated with intravenous of diuretics Lasix.We will continue fluids restriction, daily weight, will add metoprolol, continue lisinopril, And continue baby aspirin Patient last echo in March 2019 show patient has 45% of the EF with moderate right side heart failure. Chest x-ray show bilaterally pulmonary edema and with pleural effusion, specially in the right side lung. We will give the patient diuretics, patient already was given Lasix 20 mg intravenous in the ER, we will supply supplemental of oxygen to the patient as needed. We will order new echo to monitor patient. We will resume home metoprolol and Lisinopril , will continue monitor with BNP. (3) Atrial fibrillation with rapid ventricular response Conclusion/Plan: 10/07,In the morning, patient telemetry show patient has atrial fibrillation with RVR, Pulse was between 100- 135. Patient denies chest pain or palpitation. Patient has scheduled metoprolol. after patient was given metoprolol, telemetry show patient's HR is around 80 right now. we will continue vital sign and tele monitor pt to determine if pt need further medication to control his fast pause and keep good number blood pressure. 624,Patient heart rate right now is below 100, patient is a prescription new medicine metoprolol PO, Continue PRN intravenous of metoprolol as needed.Continue baby aspirin at his home medication, because the patient has history of intracranial hemorrhage, no more anticoagulation. Patient has hx of atrial fibrillation with RVR , patient initially HR had around 160. patient was given 20 mg Cardizem in the ER, then patient HR was down to the around 120, we will continue patient home medication PO metoprolol and intravenous of metoprolol as needed, continue telemetry (4) Lymphedema Conclusion/Plan: 10/06, stable, continue skin care Patient has a history of bilaterally lower extremity lymphedema, patient denies any infection or pain, will continue skin care, and support (5) Alcoholism Conclusion/Plan: 10/06, Stable, without alcohol withdrawal, continue vitamin B1 and multiple vitamin Patient has history of alcoholism, patient denies he recently drink alcohol, we will closely monitor pt and encourage pt quit alcohol. (6) Hx of subarachnoid hemorrhage Conclusion/Plan: 624,Stable, patient denies headache, as usual mental status, continue baby aspirin as his home medication, And blood pressure control pt has hx of subarachnoid hemorrhage. Patient only take baby aspirin, given patient has history of atrial fibrillation. We will close monitor patient to see clinically improved otherwise we will may do CTA of the chest to rule out PE (7) HTN (hypertension) Conclusion/Plan: Stable, we will resume home lisinopril and metoprolol after confirmed (8) BPH (benign prostatic hyperplasia) Conclusion/Plan: Patient take Flomax and Proscar for his BPH, we will resume (2) Acute exacerbation of CHF (congestive heart failure) Qualifiers: Heart failure type: unspecified Qualified Code(s): I50.9 - Heart failure, unspecified - Current Meds Current Meds: Current Medications Generic Name Dose Route Start Last Admin Trade Name Freq PRN Reason Stop Dose Admin Aspirin 81 mg 10/07/19 09:00 10/08/19 10:14 [facility] Aspirin PO 81 mg DAILY HERLINDA Administration Atorvastatin Calcium 80 mg 10/07/19 09:00 10/08/19 10:14 Lipitor PO 80 mg DAILY HERLINDA Administration Enoxaparin Sodium 40 mg 10/07/19 09:00 10/08/19 10:29 Lovenox SUBQ 40 mg DAILY HERLINDA Administration Finasteride 5 mg 10/07/19 09:00 10/08/19 10:25 Proscar PO 5 mg DAILY HERLINDA Administration Lisinopril 40 mg 10/07/19 09:00 10/08/19 10:11 Zestril PO 40 mg DAILY HERLINDA Administration Metoprolol Tartrate 25 mg 10/07/19 09:00 10/08/19 10:11 Lopressor PO 25 mg BID HERLINDA Administration Nystatin 1 applic 10/06/19 21:00 10/08/19 10:15 Nystop TOP 1 applic BID HERLINDA Administration Polyethylene Glycol 17 gm 10/08/19 09:00 10/08/19 10:15 Miralax PO 17 gm DAILY HERLINDA Administration Multivit/Folic Acid/Iron 1 tab 10/07/19 08:00 10/08/19 10:14 Trinatal Rx 1 PO 1 tab DAILYWM HERLINDA Administration Sodium Chloride 10 ml 10/06/19 17:00 10/08/19 10:15 Normal Saline Flush 0.9% IVP 10 ml 0100,0900,1700 HERLINDA Administration Sodium Chloride 10 ml 10/06/19 15:32 10/08/19 06:54 Normal Saline Flush 0.9% IVP 10 ml PRN PRN Administration NEEDED PER PROVIDER ORDERS Tamsulosin HCl 0.4 mg 10/07/19 09:00 10/08/19 10:10 Flomax PO 0.4 mg DAILY HERLINDA Administration Thiamine HCl 100 mg 10/06/19 17:00 10/08/19 10:10 Vitamin B-1 PO 100 mg DAILY HERLINDA Administration - Lab Result Fish Bone Diagrams: 10/08/19 05:17 10/08/19 05:17 - Additional Planning My Orders: My Active Orders 10/07/19 15:59 Echo Transthoracic Complete [ECHO] Routine 10/08/19 14:00 FUROSEMIDE INJ 40mg VIAL [LASIX INJ 40 mg VIAL] 20 mg IVP BIDDIURETIC 10/09/19 05:00 BNP - B-NATRIURETIC PEPTIDE [IAI] DAILYLAB CBC - COMP BLD CT W/AUTO DIFF [HEME] DAILYLAB 10/10/19 05:00 BNP - B-NATRIURETIC PEPTIDE [IAI] DAILYLAB CBC - COMP BLD CT W/AUTO DIFF [HEME] DAILYLAB 10/11/19 05:00 CBC - COMP BLD CT W/AUTO DIFF [HEME] DAILYLAB Subjective - Subjective Patient Reports: Feeling Better Objective Vital Signs: Vital Signs - 24 hr 10/07/19 10/07/19 10/07/19 12:04 15:44 20:54 Temperature 36.6 C 36.4 C L 36.7 C Heart Rate [ 92 107 H Brachial] Heart Rate [ 94 Monitoring electrodes] Respiratory 19 24 20 Rate Blood Pressure Blood Pressure 119/91 H 117/66 107/64 [Right Brachial artery] O2 Saturation 98 97 97 10/08/19 10/08/19 10/08/19 00:00 03:23 07:49 Temperature 36.7 C 36.5 C 36.7 C Heart Rate [ 76 85 73 Brachial] Heart Rate [ Monitoring electrodes] Respiratory 18 20 20 Rate Blood Pressure Blood Pressure 112/59 L 110/60 114/64 [Right Brachial artery] O2 Saturation 93 96 98 10/08/19 10:11 Temperature Heart Rate [ Brachial] Heart Rate [ Monitoring electrodes] Respiratory Rate Blood Pressure 105/61 Blood Pressure [Right Brachial artery] O2 Saturation Oxygen O2 Source [With Activity] 1L via nc O2 Source [Without Activity] Room air O2 Source Room air Oxygen Flow Rate 2 I&O (Last 24 Hrs): Intake and Output Totals x24h 10/06/19 10/07/19 10/08/19 23:59 23:59 23:59 Intake Total 340 1110 240 Output Total 300 400 Balance 40 710 240 General: Alert, Cooperative, No acute distress HEENT: Atraumatic Neck: Supple Lymphatic: no adenopathy Neuro: Alert, Non Focal Cardiovascular: Normal S1, Normal S2 Respiratory: Chest non-tender, No respiratory distress Abdomen: Normal bowel sounds, Soft, No tenderness Extremities: Normal pulses - Results Results: Laboratory Results WBC 7.1 x10^3/uL (4.8-10.8) 10/08/19 05:17 RBC 4.30 10^6/uL (4.70-6.10) L 10/08/19 05:17 Hgb 12.8 g/dL (14.0-18.0) L 10/08/19 05:17 Hct 39.1 % (42.0-52.0) L 10/08/19 05:17 MCV 90.9 fL (80.0-94.0) 10/08/19 05:17 MCH 29.8 pg (27.0-31.0) 10/08/19 05:17 MCHC 32.7 g/dL (32.0-36.0) 10/08/19 05:17 RDW 13.9 % (12.0-15.0) 10/08/19 05:17 Plt Count 137 10^3/uL (130-450) 10/08/19 05:17 MPV 10.4 fL (7.4-11.4) 10/08/19 05:17 Neut # (Auto) 3.4 10^3/uL (1.5-6.6) 10/08/19 05:17 Lymph # (Auto) 2.3 10^3/uL (1.5-3.5) 10/08/19 05:17 [place] # (Auto) 0.8 10^3/uL (0.0-1.0) 10/08/19 05:17 Eos # (Auto) 0.5 10^3/uL (0.0-0.7) 10/08/19 05:17 Baso # (Auto) 0.1 10^3/uL (0.0-0.1) 10/08/19 05:17 Absolute Nucleated RBC 0.00 x10^3/uL 10/08/19 05:17 Nucleated RBC % 0.0 /100WBC 10/08/19 05:17 Sodium 136 mmol/L (135-145) 10/08/19 05:17 Potassium 3.4 mmol/L (3.5-5.0) L 10/08/19 05:17 Chloride 99 mmol/L (101-111) L 10/08/19 05:17 Carbon Dioxide 28 mmol/L (21-32) 10/08/19 05:17 Anion Gap 9.0 (6-13) 10/08/19 05:17 BUN 21 mg/dL (6-20) H 10/08/19 05:17 Creatinine 1.1 mg/dL (0.6-1.2) 10/08/19 05:17 Estimated GFR (MDRD) 64 (>89) L 10/08/19 05:17 Glucose 109 mg/dL (70-100) H 10/08/19 05:17 Lactic Acid 1.1 mmol/L (0.5-2.2) 10/06/19 14:24 Calcium 9.1 mg/dL (8.5-10.3) 10/08/19 05:17 Total Bilirubin 1.0 mg/dL (0.2-1.0) 10/06/19 14:24 AST 20 IU/L (10-42) 10/06/19 14:24 ALT 16 IU/L (10-60) 10/06/19 14:24 Alkaline Phosphatase 60 IU/L (42-121) 10/06/19 14:24 Troponin I High Sens 35.7 ng/L (2.3-19.7) H* 10/07/19 04:33 B-Natriuretic Peptide 198 pg/mL (5-100) H 10/08/19 05:17 Total Protein 6.9 g/dL (6.7-8.2) 10/06/19 14:24 Albumin 3.6 g/dL (3.2-5.5) 10/06/19 14:24 Globulin 3.3 g/dL (2.1-4.2) 10/06/19 14:24 Albumin/Globulin Ratio 1.1 (1.0-2.2) 10/06/19 14:24 Lipase 25 U/L (22-51) 10/06/19 14:24 Urine Color YELLOW 10/06/19 16:45 Urine Clarity CLEAR (CLEAR) 10/06/19 16:45 Urine pH 6.0 PH (5.0-7.5) 10/06/19 16:45 Ur Specific [place] 1.010 (1.002-1.030) 10/06/19 16:45 Urine Protein NEGATIVE mg/dL (NEGATIVE) 10/06/19 16:45 Urine Glucose (UA) NEGATIVE mg/dL (NEGATIVE) 10/06/19 16:45 Urine Ketones NEGATIVE mg/dL (NEGATIVE) 10/06/19 16:45 Urine Occult Blood TRACE-INTA (NEGATIVE) 10/06/19 16:45 Urine Nitrite NEGATIVE (NEGATIVE) 10/06/19 16:45 Urine Bilirubin NEGATIVE (NEGATIVE) 10/06/19 16:45 Urine Urobilinogen 0.2 (NORMAL) E.U./dL (NORMAL) 10/06/19 16:45 Ur Leukocyte Esterase NEGATIVE (NEGATIVE) 10/06/19 16:45 Ur Microscopic Review NOT INDICATED 10/06/19 16:45 Urine Culture Comments NOT INDICATED 10/06/19 16:45 Nasal Screen MRSA (PCR) NEGATIVE (NEGATIVE) 10/06/19 16:30 Coronavirus (PCR) NEGATIVE 10/06/19 16:30 Sepsis Event Note (H) - Evaluation Current Stage of Sepsis: Ruled out ABX Reporting Has patient been on IV antibiotics over the past 48 hours?: No Current Medications - Current Medications Current Medications: Active Medications Hydrocodone Bitart/Acetaminophen ([place] 5/325) 1 tab PO Q4HR PRN PRN Reason: Pain 5 to 7 Aspirin ([facility] Aspirin) 81 mg PO DAILY [facility] Last Admin: 10/08/19 10:14 Dose: 81 mg Documented by: Atorvastatin Calcium (Lipitor) 80 mg PO DAILY [facility] Last Admin: 10/08/19 10:14 Dose: 80 mg Documented by: Enoxaparin Sodium (Lovenox) 40 mg SUBQ DAILY [facility] Last Admin: 10/08/19 10:29 Dose: 40 mg Documented by: Finasteride (Proscar) 5 mg PO DAILY [facility] Last Admin: 10/08/19 10:25 Dose: 5 mg Documented by: Furosemide (Lasix Inj 40 Mg Vial) 20 mg IVP BIDDIURETIC [facility] Levalbuterol HCl (Xopenex) 1.25 mg INH Q4H PRN PRN Reason: Shortness of Air/Wheezing Lisinopril (Zestril) 40 mg PO DAILY [facility] Last Admin: 10/08/19 10:11 Dose: 40 mg Documented by: Metoprolol Tartrate (Lopressor Inj) 5 mg IVP Q6H PRN PRN Reason: Tachycardia Metoprolol Tartrate (Lopressor) 25 mg PO BID [facility] Last Admin: 10/08/19 10:11 Dose: 25 mg Documented by: Nystatin (Nystop) 1 applic TOP BID [facility] Last Admin: 10/08/19 10:15 Dose: 1 applic Documented by: Ondansetron HCl (Zofran Odt) 4 mg TL Q6HR PRN PRN Reason: Nausea / Vomiting Ondansetron HCl (Zofran Inj) 4 mg IVP Q6HR PRN PRN Reason: Nausea / Vomiting Polyethylene Glycol (Miralax) 17 gm PO DAILY [facility] Last Admin: 10/08/19 10:15 Dose: 17 gm Documented by: Multivit/Folic Acid/Iron (Trinatal Rx 1) 1 tab PO DAILYWM [facility] Last Admin: 10/08/19 10:14 Dose: 1 tab Documented by: Sodium Chloride (Normal Saline Flush 0.9%) 10 ml IVP 0100,0900,1700 [facility] Last Admin: 10/08/19 10:15 Dose: 10 ml Documented by: Sodium Chloride (Normal Saline Flush 0.9%) 10 ml IVP PRN PRN PRN Reason: NEEDED PER PROVIDER ORDERS Last Admin: 10/08/19 06:54 Dose: 10 ml Documented by: Tamsulosin HCl (Flomax) 0.4 mg PO DAILY [facility] Last Admin: 10/08/19 10:10 Dose: 0.4 mg Documented by: Thiamine HCl (Vitamin B-1) 100 mg PO DAILY [facility] Last Admin: 10/08/19 10:10 Dose: 100 mg Documented by: Aspirin [Aspir 81] 81 mg PO DAILY 11/22/13 Atorvastatin Calcium 80 mg PO DAILY 11/22/13 Finasteride [Proscar] 5 mg PO DAILY 10/06/19 Tamsulosin [Flomax] 0.4 mg PO DAILY 10/06/19 lisinopriL [Lisinopril] 40 mg PO DAILY 10/06/19
[2019-10-09] MEDS: SODIUM CHLORIDE FLUSH 0.9% 10 ML SYRINGE IVP SCH ×4 (03:39→23:44)
[2019-10-09 05:32] LABS: CALCIUM 9.1 mg/dL (8.5-10.3); CREATININE 1.3 mg/dL (0.6-1.2)
[2019-10-09 05:35] LABS: BASOPHILS # (AUTO) 0.1 10^3/uL (0.0-0.1); BASOPHILS % (AUTO) 1.7 %; EOSINOPHILS # (AUTO) 0.6 10^3/uL (0.0-0.7); EOSINOPHILS % (AUTO) 8.5 %; HGB - HEMOGLOBIN 12.8 g/dL (14.0-18.0); LYMPHOCYTES # (AUTO) 2.9 10^3/uL (1.5-3.5); LYMPHOCYTES % (AUTO) 44.9 %; MEAN CORPUSCULAR HEMOGLOBIN 28.3 pg (27.0-31.0); MEAN CORPUSCULAR HGB CONC 30.9 g/dL (32.0-36.0); MEAN CORPUSCULAR VOLUME 91.6 fL (80.0-94.0); MEAN PLATELET VOLUME 10.4 fL (7.4-11.4); MONOCYTES # (AUTO) 0.7 10^3/uL (0.0-1.0); MONOCYTES % (AUTO) 10.8 %; NEUTROPHILS # (AUTO) 2.2 10^3/uL (1.5-6.6); NEUTROPHILS % (AUTO) 33.8 %; PLT - PLATELET COUNT 153 10^3/uL (130-450); RED BLOOD COUNT 4.52 10^6/uL (4.70-6.10); RED CELL DISTRIBUTION WIDTH 13.7 % (12.0-15.0); WHITE BLOOD COUNT 6.5 x10^3/uL (4.8-10.8)
[2019-10-09] MEDS: FUROSEMIDE 40 MG/4 ML VIAL IVP SCH (06:45)
[2019-10-09] MEDS: ASPIRIN CHEW 81 MG TABLET PO SCH (08:01)
[2019-10-09] MEDS: THIAMINE 100 MG TABLET PO SCH (08:01)
[2019-10-09] MEDS: ATORVASTATIN 40 MG TABLET PO SCH (08:01)
[2019-10-09] MEDS: PRENATAL VITAMIN TABLET PO SCH (08:02)
[2019-10-09] MEDS: FINASTERIDE 5 MG TABLET PO SCH (08:02)
[2019-10-09] MEDS: NYSTATIN POWDER 15 GM TOP SCH ×2 (08:02→20:58)
[2019-10-09] MEDS: TAMSULOSIN 0.4 MG CAPSULE PO SCH (08:02)
[2019-10-09] MEDS: METOPROLOL TARTRATE 25 MG TABLET PO SCH ×2 (08:02→20:16)
[2019-10-09] MEDS: polyethylene glycoL 3350 17 GM PACKET PO SCH (08:02)
[2019-10-09] MEDS: ENOXAPARIN 40 MG/0.4 ML SYRINGE SUBQ SCH (08:04)
[2019-10-09] MEDS ORDERED: lisinopriL 5 MG TABLET PO SCH (09:00)
[2019-10-09] MEDS ORDERED: lisinopriL 20 MG TABLET PO SCH (09:00)
[2019-10-09] MEDS ORDERED: MIN OIL/DIMETHICON/COCONUT OIL 92 GM TUBE TOP PRN (10:39)
[2019-10-09] MEDS ORDERED: SODIUM CHLORIDE 0.9% 1,000 ML IV SCH (12:00)
[2019-10-09] MEDS ORDERED: SODIUM CHLORIDE 0.9% 500 ML IV ONE (13:27)
--- NOTE | 2019-10-09 14:37 | PROVIDER PROGRESS NOTE ---
Assessment/Plan - Problem List (1) Hypotension Assessment/Plan: 10/08, Patient has systolic blood pressure 80. Patient was asymptomatic, he denies dizziness, denies chest pain or any related symptoms. Patient's lisinopril Already reduced to 5 mg daily, Patient take 40 mg Lisinopril at home. Lasix was already hold. Patient take metoprolol 25 mg for Atrial fibrillation with RVR. Patient'd creatinine increases to 1.3 From 1.1. Patient seems slightly over dehydrated for his fluid over-loaded. patient was already started with normal saline at 83.3 cc/h. 500 normal saline bolus was ordered for patient. Will hold lisinopril, reduce metoprolol to 12.5 mg. Continue normal saline at 8 3.3 cc/h for 1 L. Patient has EF at 45-50%. check troponin and BMP. (2) Respiratory failure with hypoxia Assessment/Plan: 10/08, improved. Patient does not show respiratory distress, He has 95% sats on room air. 10/07, breathing was improved significantly and did not show SOB when he talk, patient has 96-98% sats on room air. Patient was given diuretics, it is likely diuretics reduce pulmonary edema and improve patient respiratory status. We will continue diuretics, slightly reduce diuretics dosage because test to show patient has mild elevated creatinine/BUN 10/06, Improved. Patient 1 now has 97% of sats on room air, patient has no breath ing difficult. CXR will show pulmonary edema, new echo show patient has 45 to 50% EF with normal range of diastolic right side heart pressure. Continue diuretics with intravenous of Lasix 40 twice daily. Patient was found 66% of sats on room air when EMS was at the patient's home. Patient has a history of systolic and diastolic heart failure, chest x-ray show patient has significant significantly pulmonary edema special at right side lung. And patient was found he had heart rate around 160 when EMS was at the patient[place]. Plan, We will give the patient diuretics, intravenous Lasix, we will do fluid restriction and daily weight, we will give patient intravenous metoprolol PRN and we will resume home medication metoprolol PO to control patient's heart rate. Because patient has history of for subarachnoid hemorrhagic. Patient only takes a baby aspirin in the home, but patient also has a history atrial fibrillation, we will closely monitor patient to see if patient improved, if patient not improve, we may be consideration with a CTA to rule out PE. (3) Acute exacerbation of CHF (congestive heart failure) Conclusion/Plan: 626, Improved. patient BNP is 89 on today, it is a significantly reduced. Patient has no respiratory distress. 625, improved, patient breathing is significantly improved. Out of the bed for 4 time daily, Encourage patient ambulate safely with nurse, continue PT/OT. Continue diuretics. 10/06,new echo show patient has 45 to 50% EF with normal range of diastolic right side heart pressure. Patient tolerated with intravenous of diuretics Lasix.We will continue fluids restriction, daily weight, will add metoprolol, continue lisinopril, And continue baby aspirin Patient last echo in March 2019 show patient has 45% of the EF with moderate right side heart failure. Chest x-ray show bilaterally pulmonary edema and with pleural effusion, specially in the right side lung. We will give the patient diuretics, patient already was given Lasix 20 mg intravenous in the ER, we will supply supplemental of oxygen to the patient as needed. We will order new echo to monitor patient. We will resume home metoprolol and Lisinopril , will continue monitor with BNP. (4) Atrial fibrillation with rapid ventricular response Conclusion/Plan: 10/08, Heart rate is controlled at around 85. Continue metoprolol, continue telemetry to monitor patient 10/07,In the morning, patient telemetry show patient has atrial fibrillation with RVR, Pulse was between 100- 135. Patient denies chest pain or palpitation. Patient has scheduled metoprolol. after patient was given metoprolol, telemetry show patient's HR is around 80 right now. we will continue vital sign and tele monitor pt to determine if pt need further medication to control his fast pause and keep good number blood pressure. 624,Patient heart rate right now is below 100, patient is a prescription new medicine metoprolol PO, Continue PRN intravenous of metoprolol as needed.Continue baby aspirin at his home medication, because the patient has history of intracranial hemorrhage, no more anticoagulation. Patient has hx of atrial fibrillation with RVR , patient initially HR had around 160. patient was given 20 mg Cardizem in the ER, then patient HR was down to the around 120, we will continue patient home medication PO metoprolol and intravenous of metoprolol as needed, continue telemetry (5) Lymphedema Conclusion/Plan: 10/06, stable, continue skin care Patient has a history of bilaterally lower extremity lymphedema, patient denies any infection or pain, will continue skin care, and support (6) Alcoholism Conclusion/Plan: 10/06, Stable, without alcohol withdrawal, continue vitamin B1 and multiple vitamin Patient has history of alcoholism, patient denies he recently drink alcohol, we will closely monitor pt and encourage pt quit alcohol. (7) Hx of subarachnoid hemorrhage Conclusion/Plan: 624,Stable, patient denies headache, as usual mental status, continue baby aspirin as his home medication, And blood pressure control pt has hx of subarachnoid hemorrhage. Patient only take baby aspirin, given patient has history of atrial fibrillation. We will close monitor patient to see clinically improved otherwise we will may do CTA of the chest to rule out PE (8) HTN (hypertension) Conclusion/Plan: Stable, we will resume home lisinopril and metoprolol after confirmed (9) BPH (benign prostatic hyperplasia) Conclusion/Plan: Patient take Flomax and Proscar for his BPH, we will resume (3) Acute exacerbation of CHF (congestive heart failure) Qualifiers: Heart failure type: unspecified Qualified Code(s): I50.9 - Heart failure, unspecified - Current Meds Current Meds: Current Medications Generic Name Dose Route Start Last Admin Trade Name Freq PRN Reason Stop Dose Admin Aspirin 81 mg 10/07/19 09:00 10/09/19 08:01 [facility] Aspirin PO 81 mg DAILY HERLINDA Administration Atorvastatin Calcium 80 mg 10/07/19 09:00 10/09/19 08:01 Lipitor PO 80 mg DAILY HERLINDA Administration Enoxaparin Sodium 40 mg 10/07/19 09:00 10/09/19 08:04 Lovenox SUBQ 40 mg DAILY HERLINDA Administration Finasteride 5 mg 10/07/19 09:00 10/09/19 08:02 Proscar PO 5 mg DAILY HERLINDA Administration Sodium Chloride 1,000 mls @ 83.333 mls/hr 10/09/19 12:00 10/09/19 14:23 Normal Saline 0.9% IV 10/09/19 23:59 83.333 mls/hr .Q12H HERLINDA Infusion Nystatin 1 applic 10/06/19 21:00 10/09/19 08:02 Nystop TOP 1 applic BID HERLINDA Administration Polyethylene Glycol 17 gm 10/08/19 09:00 10/09/19 08:02 Miralax PO 17 gm DAILY HERLINDA Administration Multivit/Folic Acid/Iron 1 tab 10/07/19 08:00 10/09/19 08:02 Trinatal Rx 1 PO 1 tab DAILYWM HERLINDA Administration Sodium Chloride 10 ml 10/06/19 17:00 10/09/19 08:03 Normal Saline Flush 0.9% IVP 10 ml 0100,0900,1700 HERLINDA Administration Sodium Chloride 10 ml 10/06/19 15:32 10/08/19 06:54 Normal Saline Flush 0.9% IVP 10 ml PRN PRN Administration NEEDED PER PROVIDER ORDERS Tamsulosin HCl 0.4 mg 10/07/19 09:00 10/09/19 08:02 Flomax PO 0.4 mg DAILY HERLINDA Administration Thiamine HCl 100 mg 10/06/19 17:00 10/09/19 08:01 Vitamin B-1 PO 100 mg DAILY HERLINDA Administration - Lab Result Fish Bone Diagrams: 10/09/19 04:50 10/09/19 04:50 - Additional Planning My Orders: My Active Orders 10/09/19 07:20 Fluid Restriction Discontinuat [RC] .ONCE 10/09/19 10:39 Min Oil/Dimeth/Coconut Oil Crm [Cavilon] 1 applic TOP PRN PRN 10/09/19 12:00 Sodium Chloride 0.9% [Normal Saline 0.9%] 1,000 ml IV 83.333 mls/hr 10/09/19 14:16 TROPONIN I HIGH SENSITIVITY [IAI] Urgent 10/09/19 15:00 BMP - BASIC METABOLIC PANEL [CHEM] Timed 10/09/19 21:00 Metoprolol Tartrate [Lopressor] 12.5 mg PO BID 10/10/19 05:00 BNP - B-NATRIURETIC PEPTIDE [IAI] DAILYLAB CBC - COMP BLD CT W/AUTO DIFF [HEME] DAILYLAB 10/11/19 05:00 CBC - COMP BLD CT W/AUTO DIFF [HEME] DAILYLAB Subjective - Subjective Patient Reports: Feeling Better Objective Vital Signs: Vital Signs - 24 hr 10/08/19 10/08/19 10/08/19 15:30 15:44 17:59 Temperature 36.8 C Heart Rate Heart Rate [ Brachial] Heart Rate [ 96 101 H 86 Monitoring electrodes] Respiratory 20 Rate Blood Pressure Blood Pressure 131/69 H [Right Brachial artery] O2 Saturation 100 10/08/19 10/08/19 10/08/19 19:20 20:05 21:25 Temperature 36.4 C L Heart Rate 84 Heart Rate [ Brachial] Heart Rate [ 84 Monitoring electrodes] Respiratory 20 18 Rate Blood Pressure 110/78 Blood Pressure 101/59 L [Right Brachial artery] O2 Saturation 99 10/09/19 10/09/19 10/09/19 01:00 04:54 07:30 Temperature 36.3 C L 36.4 C L Heart Rate 103 H Heart Rate [ 77 76 Brachial] Heart Rate [ Monitoring electrodes] Respiratory 16 18 18 Rate Blood Pressure Blood Pressure 114/75 109/68 [Right Brachial artery] O2 Saturation 100 100 10/09/19 10/09/19 10/09/19 07:34 08:02 13:00 Temperature 36.4 C L 36.0 C L Heart Rate Heart Rate [ 98 85 Brachial] Heart Rate [ Monitoring electrodes] Respiratory 19 20 Rate Blood Pressure 107/54 L Blood Pressure 107/54 L 79/53 L [Right Brachial artery] O2 Saturation 97 95 10/09/19 10/09/19 10/09/19 13:25 14:00 14:18 Temperature Heart Rate Heart Rate [ 80 85 Brachial] Heart Rate [ Monitoring electrodes] Respiratory 20 Rate Blood Pressure Blood Pressure 80/43 L 85/41 L 80/42 L [Right Brachial artery] O2 Saturation 95 Oxygen O2 Source [With Activity] 1L via nc O2 Source [Without Activity] Room air O2 Source Room air Oxygen Flow Rate 2 I&O (Last 24 Hrs): Intake and Output Totals x24h 10/07/19 10/08/19 10/09/19 23:59 23:59 23:59 Intake Total 1110 1020 1640 Output Total 400 300 Balance 710 1020 1340 General: Alert, No acute distress HEENT: Atraumatic Neck: Supple Lymphatic: no adenopathy Neuro: Alert, Non Focal Cardiovascular: Regular rate, Normal S1, Normal S2 Respiratory: Chest non-tender, No respiratory distress Abdomen: Normal bowel sounds, Soft, No tenderness Extremities: Normal pulses - Results Results: Laboratory Results WBC 6.5 x10^3/uL (4.8-10.8) 10/09/19 04:50 RBC 4.52 10^6/uL (4.70-6.10) L 10/09/19 04:50 Hgb 12.8 g/dL (14.0-18.0) L 10/09/19 04:50 Hct 41.4 % (42.0-52.0) L 10/09/19 04:50 MCV 91.6 fL (80.0-94.0) 10/09/19 04:50 MCH 28.3 pg (27.0-31.0) 10/09/19 04:50 MCHC 30.9 g/dL (32.0-36.0) L 10/09/19 04:50 RDW 13.7 % (12.0-15.0) 10/09/19 04:50 Plt Count 153 10^3/uL (130-450) 10/09/19 04:50 MPV 10.4 fL (7.4-11.4) 10/09/19 04:50 Neut # (Auto) 2.2 10^3/uL (1.5-6.6) 10/09/19 04:50 Lymph # (Auto) 2.9 10^3/uL (1.5-3.5) 10/09/19 04:50 [place] # (Auto) 0.7 10^3/uL (0.0-1.0) 10/09/19 04:50 Eos # (Auto) 0.6 10^3/uL (0.0-0.7) 10/09/19 04:50 Baso # (Auto) 0.1 10^3/uL (0.0-0.1) 10/09/19 04:50 Absolute Nucleated RBC 0.00 x10^3/uL 10/09/19 04:50 Nucleated RBC % 0.0 /100WBC 10/09/19 04:50 Sodium 137 mmol/L (135-145) 10/09/19 04:50 Potassium 3.8 mmol/L (3.5-5.0) 10/09/19 04:50 Chloride 97 mmol/L (101-111) L 10/09/19 04:50 Carbon Dioxide 31 mmol/L (21-32) 10/09/19 04:50 Anion Gap 9.0 (6-13) 10/09/19 04:50 BUN 29 mg/dL (6-20) H 10/09/19 04:50 Creatinine 1.3 mg/dL (0.6-1.2) H 10/09/19 04:50 Estimated GFR (MDRD) 53 (>89) L 10/09/19 04:50 Glucose 115 mg/dL (70-100) H 10/09/19 04:50 Lactic Acid 1.1 mmol/L (0.5-2.2) 10/06/19 14:24 Calcium 9.1 mg/dL (8.5-10.3) 10/09/19 04:50 Total Bilirubin 1.0 mg/dL (0.2-1.0) 10/06/19 14:24 AST 20 IU/L (10-42) 10/06/19 14:24 ALT 16 IU/L (10-60) 10/06/19 14:24 Alkaline Phosphatase 60 IU/L (42-121) 10/06/19 14:24 Troponin I High Sens 35.7 ng/L (2.3-19.7) H* 10/07/19 04:33 B-Natriuretic Peptide 89 pg/mL (5-100) 10/09/19 04:50 Total Protein 6.9 g/dL (6.7-8.2) 10/06/19 14:24 Albumin 3.6 g/dL (3.2-5.5) 10/06/19 14:24 Globulin 3.3 g/dL (2.1-4.2) 10/06/19 14:24 Albumin/Globulin Ratio 1.1 (1.0-2.2) 10/06/19 14:24 Lipase 25 U/L (22-51) 10/06/19 14:24 Urine Color YELLOW 10/06/19 16:45 Urine Clarity CLEAR (CLEAR) 10/06/19 16:45 Urine pH 6.0 PH (5.0-7.5) 10/06/19 16:45 Ur Specific [place] 1.010 (1.002-1.030) 10/06/19 16:45 Urine Protein NEGATIVE mg/dL (NEGATIVE) 10/06/19 16:45 Urine Glucose (UA) NEGATIVE mg/dL (NEGATIVE) 10/06/19 16:45 Urine Ketones NEGATIVE mg/dL (NEGATIVE) 10/06/19 16:45 Urine Occult Blood TRACE-INTA (NEGATIVE) 10/06/19 16:45 Urine Nitrite NEGATIVE (NEGATIVE) 10/06/19 16:45 Urine Bilirubin NEGATIVE (NEGATIVE) 10/06/19 16:45 Urine Urobilinogen 0.2 (NORMAL) E.U./dL (NORMAL) 10/06/19 16:45 Ur Leukocyte Esterase NEGATIVE (NEGATIVE) 10/06/19 16:45 Ur Microscopic Review NOT INDICATED 10/06/19 16:45 Urine Culture Comments NOT INDICATED 10/06/19 16:45 Nasal Screen MRSA (PCR) NEGATIVE (NEGATIVE) 10/06/19 16:30 Coronavirus (PCR) NEGATIVE 10/06/19 16:30 Sepsis Event Note (H) - Evaluation Current Stage of Sepsis: Ruled out ABX Reporting Has patient been on IV antibiotics over the past 48 hours?: No Current Medications - Current Medications Current Medications: Active Medications Hydrocodone Bitart/Acetaminophen ([facility] 5/325) 1 tab PO Q4HR PRN PRN Reason: Pain 5 to 7 Aspirin ([facility] Aspirin) 81 mg PO DAILY [facility] Last Admin: 10/09/19 08:01 Dose: 81 mg Documented by: Atorvastatin Calcium (Lipitor) 80 mg PO DAILY [facility] Last Admin: 10/09/19 08:01 Dose: 80 mg Documented by: Enoxaparin Sodium (Lovenox) 40 mg SUBQ DAILY [facility] Last Admin: 10/09/19 08:04 Dose: 40 mg Documented by: Finasteride (Proscar) 5 mg PO DAILY [facility] Last Admin: 10/09/19 08:02 Dose: 5 mg Documented by: Sodium Chloride (Normal Saline 0.9%) 1,000 mls @ 83.333 mls/hr IV .Q12H [facility] Stop: 10/09/19 23:59 Last Infusion: 10/09/19 14:23 Dose: 83.333 mls/hr Documented by: Levalbuterol HCl (Xopenex) 1.25 mg INH Q4H PRN PRN Reason: Shortness of Air/Wheezing Metoprolol Tartrate (Lopressor Inj) 5 mg IVP Q6H PRN PRN Reason: Tachycardia Metoprolol Tartrate (Lopressor) 12.5 mg PO BID [facility] Mineral Oil (Cavilon) 1 applic TOP PRN PRN PRN Reason: Skin Care Nystatin (Nystop) 1 applic TOP BID [facility] Last Admin: 10/09/19 08:02 Dose: 1 applic Documented by: Ondansetron HCl (Zofran Odt) 4 mg TL Q6HR PRN PRN Reason: Nausea / Vomiting Ondansetron HCl (Zofran Inj) 4 mg IVP Q6HR PRN PRN Reason: Nausea / Vomiting Polyethylene Glycol (Miralax) 17 gm PO DAILY [facility] Last Admin: 10/09/19 08:02 Dose: 17 gm Documented by: Multivit/Folic Acid/Iron (Trinatal Rx 1) 1 tab PO DAILYWM [facility] Last Admin: 10/09/19 08:02 Dose: 1 tab Documented by: Sodium Chloride (Normal Saline Flush 0.9%) 10 ml IVP 0100,0900,1700 [facility] Last Admin: 10/09/19 08:03 Dose: 10 ml Documented by: Sodium Chloride (Normal Saline Flush 0.9%) 10 ml IVP PRN PRN PRN Reason: NEEDED PER PROVIDER ORDERS Last Admin: 10/08/19 06:54 Dose: 10 ml Documented by: Tamsulosin HCl (Flomax) 0.4 mg PO DAILY [facility] Last Admin: 10/09/19 08:02 Dose: 0.4 mg Documented by: Thiamine HCl (Vitamin B-1) 100 mg PO DAILY [facility] Last Admin: 10/09/19 08:01 Dose: 100 mg Documented by: Aspirin [Aspir 81] 81 mg PO DAILY 11/22/13 Atorvastatin Calcium 80 mg PO DAILY 11/22/13 Finasteride [Proscar] 5 mg PO DAILY 10/06/19 Tamsulosin [Flomax] 0.4 mg PO DAILY 10/06/19 lisinopriL [Lisinopril] 40 mg PO DAILY 10/06/19
[2019-10-09 15:09] LABS: CALCIUM 9.4 mg/dL (8.5-10.3); CREATININE 1.4 mg/dL (0.6-1.2)
[2019-10-10 06:03] LABS: BASOPHILS # (AUTO) 0.1 10^3/uL (0.0-0.1); BASOPHILS % (AUTO) 1.2 %; EOSINOPHILS # (AUTO) 0.6 10^3/uL (0.0-0.7); EOSINOPHILS % (AUTO) 9.2 %; HGB - HEMOGLOBIN 12.1 g/dL (14.0-18.0); LYMPHOCYTES # (AUTO) 1.8 10^3/uL (1.5-3.5); LYMPHOCYTES % (AUTO) 27.6 %; MEAN CORPUSCULAR HEMOGLOBIN 28.9 pg (27.0-31.0); MEAN CORPUSCULAR HGB CONC 31.8 g/dL (32.0-36.0); MEAN CORPUSCULAR VOLUME 90.7 fL (80.0-94.0); MONOCYTES # (AUTO) 0.8 10^3/uL (0.0-1.0); MONOCYTES % (AUTO) 11.3 %; NEUTROPHILS # (AUTO) 3.4 10^3/uL (1.5-6.6); NEUTROPHILS % (AUTO) 50.4 %; PLT - PLATELET COUNT 143 10^3/uL (130-450); RED BLOOD COUNT 4.19 10^6/uL (4.70-6.10); RED CELL DISTRIBUTION WIDTH 13.8 % (12.0-15.0); WHITE BLOOD COUNT 6.7 x10^3/uL (4.8-10.8)
[2019-10-10] MEDS: FINASTERIDE 5 MG TABLET PO SCH (08:01)
[2019-10-10] MEDS: TAMSULOSIN 0.4 MG CAPSULE PO SCH (08:01)
[2019-10-10] MEDS: ATORVASTATIN 40 MG TABLET PO SCH (08:01)
[2019-10-10] MEDS: METOPROLOL TARTRATE 25 MG TABLET PO SCH (08:01)
[2019-10-10] MEDS: ASPIRIN CHEW 81 MG TABLET PO SCH (08:02)
[2019-10-10] MEDS: ENOXAPARIN 40 MG/0.4 ML SYRINGE SUBQ SCH (08:02)
[2019-10-10] MEDS: polyethylene glycoL 3350 17 GM PACKET PO SCH (08:02)
[2019-10-10] MEDS: THIAMINE 100 MG TABLET PO SCH (08:02)
[2019-10-10] MEDS: NYSTATIN POWDER 15 GM TOP SCH (08:02)
[2019-10-10] MEDS: SODIUM CHLORIDE FLUSH 0.9% 10 ML SYRINGE IVP SCH (08:02)
[2019-10-10] MEDS: PRENATAL VITAMIN TABLET PO SCH (08:02)
--- NOTE | 2019-10-10 08:46 | Discharge Plan ---
Discharge Plan Problem Reviewed?: Yes Disposition: Home, Self Care Condition: Stable Prescriptions: lisinopriL [Lisinopril] 20 mg PO DAILY #15 tab Metoprolol Succinate [Toprol Xl] 25 mg PO BID #60 tab.er.24h Vitamin [Trinatal Rx 1] 1 tab PO DAILYWM #30 tablet Thiamine [Vitamin B-1] 100 mg PO DAILY #30 tablet Diet: Low Sodium Activity Restrictions: Activity as Tolerated Shower Restrictions: No Driving Restrictions: Yes Assistance Devices: Wheelchair Health Concerns: You were admitted because of shortness of breath, fluid overload and needed oxygen. The heart rate was fast in atrial fibrillation, and you have been started on a new medicine for this. You are being discharged home and may resume all your prior medicines EXCEPT the Lisinopril dose is now half a pill (to equal 20 mg), plus the new Metoprolol Succinate (Toprol) and new daily vitamins. The new prescriptions were electronically sent to your [facility] pharmacy in [place]. Please stay on a low-salt diet. With your diagnosis of CHF, you qualify to attend [facility] and they will call you to see if you would like to attend. Please see your PCP for hospital follow-up in the next 1 to 2 weeks. Plan of Treatment: As above. Care Goals: Improvement in symptoms and stabilization are the goals. Assessment: Ther patient understands and is agreeable with the plan. Additional Instructions or Follow Up instructions: If you have new or worsening symptoms, call your PCP for advice or come to the ER. Follow-Up Care: [facility] - CHF Classes No Smoking: If you smoke, Please STOP! Call for help. Follow-up with: Ton Dahl MD [Primary Care Provider] -
[2019-10-10 09:32] LABS: CALCIUM 9.1 mg/dL (8.5-10.3); CREATININE 1.1 mg/dL (0.6-1.2)
--- NOTE | 2019-10-10 10:31 | DISCHARGE SUMMARY ---
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 Patient is a poor historian. pt continue to report he made some mistake with [facility] and hosted alcohol drinker at his house. He report he has no child and no family member. Per EMS report, patient was at home and became emotionally upset, then he had trouble breathing. EMS report pt has also A-fib with RVR at 160-180, and had an oxygen saturation of 66% on room air. pt was Received 25mg Cardizem IVP in ER. pt remained 99% oxygen via NRM. But pt obvious has shortness of breath when he was on conversation. pt denies chest pain, fever, chill, headache, nausea, vomiting, diarrhea. A chest x-ray showed pulmonary vascular congestion and a right-sided pleural effusion. His labs were relatively unremarkable except for a BNP of 260. His troponin was 32.7. He was given a dose of 20mg Lasix IV and supplemental oxygen in the emergency room. He is being admitted with Afib with RVR and CHF exacerbation. At admission, I was able to discuss goals of care with the patient and he would like to be a Full Code. - HOSPITAL COURSE Hospital Course: (1) Respiratory failure with hypoxia The patient was found with 66% saturation on room air when EMS was at the patient's home. He has a history of systolic and diastolic heart failure, chest x-ray showed significant pulmonary edema. The cause may have been tachycardia, since his heart rate was 160 when EMS was at the patient's home. His troponins were not remarkable. He was started on supplemental oxygen, iv diuretics, fluid restriction and followed I's and O's and daily weight. His oxygen needs quickly diminished, he was able to breathe room air for the final several days. He underwent an oximetry walk test on the day of discharge and did not desaturate below 94% breathing room air; no home oxygen was needed to be ordered. (2) Acute exacerbation of CHF (congestive heart failure) Patient's last Echo in March 2019 showed LVEF of 45% with moderate right sided heart failure as well. A new Echo, done this admission, showed unchanged LVEF of 45% with normal right sided heart pressure. Patient was diuresed with intravenous Lasix b.i.d. and his Lisinopril was continued, although at a lower dose, in order to start B-blockers for heart rate control. At discharge, he was advised to resume his Bumex orally twice daily, continue lthe Lsinopril at the lower dose, and was discharged on new Toprol (see below). (3) Hypotension On 10/08 he was felt to be ready for discharge but he had a systolic blood pressure of 80mmHg. Patient was asymptomatic, he denied dizziness, denied chest pain or any related symptoms. His Lisinopril had already been reduced. Lasix was stopped. Patient's creatinine had increased to 1.3 from 1.1, thus he was slightly over diuresed. His discharge was postponed, he received a 500cc saline bolus and then 1 L of saline at 83 cc/h. A recheck of troponin was unremarkable. On the following day, blood pressure had improved to 120 systolic, he had no dizziness even with walking and was discharged home in stable condition, with the medication changes as described here. (4) Atrial fibrillation with rapid ventricular response Patient has hx of atrial fibrillation with RVR. Initially the pulse had 160. He was given 20 mg Cardizem iv in the ER, then patient HR was down to 120. We gave several doses of IV Lopressor and he was then started on metoprolol tar trate 25 mg twice daily, decreased to 12.5 mg twice daily when the blood pressure was low. At discharge, resting heart rate was 90 and with walking it carter to 135. He was discharged home on new metoprolol succinate 25 mg p.o. twice daily. We continued baby aspirin daily, as at home, because the patient has history of intracranial hemorrhage, and cannot be on anticoagulation. (5) Lymphedema This is moderately severe and chronic. The patient denied any infection or pa in. It was treated with leg elevation and topical skin care. (6) Hx of Alcoholism He had apparently quit alcohol abuse many years ago. He denied any recent drinks of alcohol. He was started on daily Thiamine and multiple vitamin, and discharged home with these prescriptions. (7) Hx of subarachnoid hemorrhage Patient has hx of subarachnoid hemorrhage. Patient only takes a baby aspirin, for the history of atrial fibrillation. (8) HTN (hypertension) His blood pressure medications were changed while here because he was hypotensive. (9) BPH (benign prostatic hyperplasia) Patient takes Flomax and Proscar for his BPH, which wqe continued. (10) Poor memory The patient waxed and waned with his memory. This may be from hypotension and hypoperfusion or a result of his prior alcohol abuse. Further memory evaluation should be done by PCP or Neurology. - ALLERGIES Allergies/Adverse Reactions: Allergies Allergy/AdvReac Type Severity Reaction Status Date / Time No Known Drug Allergies Allergy Verified 11/22/13 09:11 - MEDICATIONS Home Medications: Ambulatory Orders Medication Instructions Recorded Confirmed Aspirin [Aspir 81] 81 mg PO DAILY 11/22/13 10/06/19 Atorvastatin Calcium 80 mg PO DAILY 11/22/13 10/06/19 Bumetanide [Bumex] 1 mg PO BIDDIURETIC #60 tablet 03/14/19 10/06/19 Finasteride [Proscar] 5 mg PO DAILY 10/06/19 10/06/19 Tamsulosin [Flomax] 0.4 mg PO DAILY 10/06/19 10/06/19 Metoprolol Succinate [Toprol Xl] 25 mg PO BID #60 tab.er.24h 10/10/19 Vitamin [Trinatal Rx 1] 1 tab PO DAILYWM #30 tablet 10/10/19 Tamsulosin [Flomax] 0.4 mg PO DAILY #0 capsule 10/10/19 Thiamine [Vitamin B-1] 100 mg PO DAILY #30 tablet 10/10/19 lisinopriL [Lisinopril] 20 mg PO DAILY #15 tab 10/10/19 - PHYSICAL EXAM AT DISCHARGE General Appearance: positive: No acute distress, Alert Eyes Bilateral: positive: Normal inspection, EOMI ENT: positive: ENT inspection nml, No signs of dehydration Neck: positive: Nml inspection, No JVD Respiratory: positive: No respiratory distress Cardiovascular: positive: Irregularly irregular Abdomen: positive: Non-tender, Other (Obese) Skin: positive: Color nml Extremities: positive: Other (4+ non-pitting leg edema with thickened skin.) Neurologic/Psychiatric: positive: Oriented x3, Other (Non-focal muscle exam. Poor memory.) - LABS Result Diagrams: 10/10/19 05:50 10/10/19 05:50 - FOLLOW UP Follow Up: See PCP in the next 1 to 2 weeks for hospital follow-up, especially since some medications have been changed. - TIME SPENT Time Spent in Discharge (Minutes): 45
[2019-10-10 13:20] VITALS: BP 113/62
== END 2019-10-10 13:30 | disposition home or self-care (01) | DRG 291 ==
LOC: EDUNIT# → ED 13:02 → ICU 15:32 → MS2 10-07 14:58
PROVIDERS: ADMIT Specialist; ATTEND Internal Medicine
DX: I48.0 Paroxysmal atrial fibrillation (principal); R06.00 Dyspnea, unspecified; I10 Essential (primary) hypertension; E78.00 Pure hypercholesterolemia, unspecified; F03.90 Unspecified dementia, unspecified severity, without behavioral disturbance, psychotic disturbance, mood disturbance, and anxiety; I11.0 Hypertensive heart disease with heart failure; J96.91 Respiratory failure, unspecified with hypoxia; I50.43 Acute on chronic combined systolic (congestive) and diastolic (congestive) heart failure; I95.9 Hypotension, unspecified; I48.91 Unspecified atrial fibrillation; I89.0 Lymphedema, not elsewhere classified; F10.21 Alcohol dependence, in remission; R41.3 Other amnesia; I25.10 Atherosclerotic heart disease of native coronary artery without angina pectoris; N40.0 Benign prostatic hyperplasia without lower urinary tract symptoms; Z20.828 Contact with and (suspected) exposure to other viral communicable diseases; Z79.899 Other long term (current) drug therapy; Z79.82 Long term (current) use of aspirin; Z95.5 Presence of coronary angioplasty implant and graft; Z86.73 Personal history of transient ischemic attack (TIA), and cerebral infarction without residual deficits
CPT/HCPCS: 36415; 71045; 80048; 80053; 81003; 83605; 83690; 83880; 84484; 85025; 87150; 93005; 93306; 96374; 97116; 97161; 97167; 97530; 99285; A6250; A9270; J1650; U0004; 81001; 81599; 87086

== ENCOUNTER 2020-01-05 13:39 | Outpatient (CLI) | payer MEDICARE ==
[2020-01-05 20:16] LABS: ALBUMIN 3.9 g/dL (3.2-5.5); ALBUMIN/GLOBULIN RATIO 1.1 (1.0-2.2); ALKALINE PHOSPHATASE 56 IU/L (42-121); ALT ALANINE AMINOTRANSFERASE 14 IU/L (10-60); AST ASPARTATE AMINOTRANSFERASE 19 IU/L (10-42); BUN - BLOOD UREA NITROGEN 16 mg/dL (6-20); CALCIUM 9.5 mg/dL (8.5-10.3); CARBON DIOXIDE - CO2 25 mmol/L (21-32); CHLORIDE 102 mmol/L (101-111); CHOL/HDL RATIO 3.4 (<5.0); CHOLESTEROL 148 mg/dL; CREATININE 1.1 mg/dL (0.6-1.2); GLUCOSE 118 mg/dL (70-100); HDL CHOLESTEROL 44 mg/dL; LDL CHOLESTEROL,CALCULATED 82 mg/dL; LDL/HDL RATIO 1.9 (<3.6); SODIUM 138 mmol/L (135-145); TOTAL PROTEIN 7.3 g/dL (6.7-8.2); VLDL CHOLESTEROL 22 mg/dL
== END 2020-01-05 13:40 | disposition home or self-care (01) ==
LOC: LAB.S 13:39
PROVIDERS: ATTEND Internal Medicine
DX: Z00.00 Encounter for general adult medical examination without abnormal findings (principal); I10 Essential (primary) hypertension; E78.5 Hyperlipidemia, unspecified; E53.8 Deficiency of other specified B group vitamins; R73.01 Impaired fasting glucose; I25.9 Chronic ischemic heart disease, unspecified; F03.90 Unspecified dementia, unspecified severity, without behavioral disturbance, psychotic disturbance, mood disturbance, and anxiety; B74.9 Filariasis, unspecified; H61.20 Impacted cerumen, unspecified ear; R41.3 Other amnesia; F10.20 Alcohol dependence, uncomplicated
CPT/HCPCS: 36415; 80053; 80061; 82607; 83721

== ENCOUNTER 2020-05-11 09:39 | Outpatient (CLI) | payer MEDICARE | END 2020-05-11 09:40 | disposition critical access hospital (66) | LOC: EMS 09:39 | PROVIDERS: ATTEND Surgery | DX: R41.0 Disorientation, unspecified (principal); Z74.2 Need for assistance at home and no other household member able to render care | CPT/HCPCS: A0425; A0429 ==

== ENCOUNTER 2020-05-11 10:07 | Emergency (ER) | payer MEDICARE ==
--- NOTE | 2020-05-11 10:30 | ED Physician Documentation ---
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 The police went to the patient's house and found the the doors were all open and no one was home. The patient indicates that he has a caregiver and that his caregiver usually spends the night but did not spend the night last night. He states that he does not know when he left his house why he left his house or where he was going. He states that he has not been ill recently and that he believes most of this is a waste of time if he could just get back to his home. The patient has a history of COPD, hypertension and alcohol abuse. His most obvious finding is some significant lower extremity edema that is bilateral and deforming. He has a history of dementia, BPH and atrial fibrillation as well. Review of Systems Constitutional: denies: Fever Eyes: denies: Decreased vision Ears: denies: Ear pain Nose: denies: Congestion Throat: denies: Sore throat Cardiac: denies: Chest pain / pressure, Palpitations Respiratory: denies: Dyspnea, Cough GI: denies: Abdominal Pain, Nausea, Vomiting, Constipation, Diarrhea : denies: Dysuria, Frequency Skin: denies: Rash Musculoskeletal: reports: Extremity swelling. denies: Neck pain, Back pain, Extremity pain Neurologic: denies: Generalized weakness, Focal weakness, Numbness PD PAST MEDICAL HISTORY - Past Medical History Cardiovascular: Hypertension, High cholesterol Respiratory: None Neuro: Dementia, Other Endocrine/Autoimmune: None GI: None : Benign prostate hypertrophy HEENT: None Psych: None Musculoskeletal: None Derm: None - Past Surgical History Past Surgical History: Yes Cardiovascular: Coronary stent - Present Medications Home Medications: Ambulatory Orders Medication Instructions Recorded Confirmed Aspirin [Aspir 81] 81 mg PO DAILY 11/22/13 10/06/19 Atorvastatin Calcium 80 mg PO DAILY 11/22/13 10/06/19 Bumetanide [Bumex] 1 mg PO BIDDIURETIC #60 tablet 03/14/19 10/06/19 Finasteride [Proscar] 5 mg PO DAILY 10/06/19 10/06/19 Tamsulosin [Flomax] 0.4 mg PO DAILY 10/06/19 10/06/19 Metoprolol Succinate [Toprol Xl] 25 mg PO BID #60 tab.er.24h 10/10/19 Vitamin [Trinatal Rx 1] 1 tab PO DAILYWM #30 tablet 10/10/19 Tamsulosin [Flomax] 0.4 mg PO DAILY #0 capsule 10/10/19 Thiamine [Vitamin B-1] 100 mg PO DAILY #30 tablet 10/10/19 lisinopriL [Lisinopril] 20 mg PO DAILY #15 tab 10/10/19 - Allergies Allergies/Adverse Reactions: Allergies Allergy/AdvReac Type Severity Reaction Status Date / Time No Known Drug Allergies Allergy Verified 05/11/20 10:14 - Social History Does the pt smoke?: No Smoking Status: Never smoker Does the pt drink ETOH?: Yes Does the pt have substance abuse?: No - Immunizations Immunizations are current?: Yes PD ED PE NORMAL - Vitals Vital signs reviewed: Yes (Normal) - General General: No acute distress, Well developed/nourished, Other (The patient is oriented X2) - HEENT HEENT: Atraumatic, PERRL, EOMI - Neck Neck: Supple, no meningeal sign, No bony TTP - Cardiac Cardiac: RRR, No murmur - Respiratory Respiratory: No respiratory distress, Clear bilaterally - Abdomen Abdomen: Normal bowel sounds, Soft, Non tender, Non distended, No organomegaly - Back Back: No CVA TTP, No spinal TTP - Derm Derm: Normal color, Warm and dry, No rash - Extremities Extremities: Other (There are is bilateral lower extremity deforming edema. The feet are markedly deformed from chronic edema and venous stasis. 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, No motor deficit, No sensory deficit, Normal speech Eye Opening: Spontaneous Motor: Obeys Commands Verbal: Confused GCS Score: 14 - Psych Psych: Normal mood, Normal affect Results - Vitals Vitals: Vital Signs - 24 hr 05/11/20 05/11/20 05/11/20 10:14 11:00 13:00 Temperature 36.1 C L 36.2 C L Heart Rate 90 88 84 Respiratory 18 16 16 Rate Blood Pressure 95/65 108/83 H 103/65 O2 Saturation 100 96 Oxygen O2 Source [With Activity] 1L via nc O2 Source [Without Activity] Room air O2 Source Room air - Labs Labs: Laboratory Tests 05/11/20 05/11/20 05/11/20 10:30 10:30 11:30 WBC 6.0 RBC 4.52 L Hgb 13.5 L Hct 42.4 MCV 93.8 MCH 29.9 MCHC 31.8 L RDW 12.7 Plt Count 209 MPV 9.2 Neut # (Auto) 3.5 Lymph # (Auto) 1.5 [place] # (Auto) 0.7 Eos # (Auto) 0.2 Baso # (Auto) 0.1 Absolute Nucleated RBC 0.00 Nucleated RBC % 0.0 Sodium 137 Potassium 4.4 Chloride 100 L Carbon Dioxide 26 Anion Gap 11.0 BUN 15 Creatinine 1.2 Estimated GFR (MDRD) 58 L Glucose 122 H Calcium 9.4 Total Bilirubin 0.6 AST 18 ALT 13 Alkaline Phosphatase 70 Total Protein 7.4 Albumin 3.7 Globulin 3.7 Albumin/Globulin Ratio 1.0 Lipase 24 Urine Color YELLOW Urine Clarity CLEAR Urine pH 5.5 Ur Specific [place] 1.020 Urine Protein NEGATIVE Urine Glucose (UA) NEGATIVE Urine Ketones NEGATIVE Urine Occult Blood SMALL H Urine Nitrite NEGATIVE Urine Bilirubin NEGATIVE Urine Urobilinogen 0.2 (NORMAL) Ur Leukocyte Esterase NEGATIVE Urine RBC None Seen Urine WBC 0-3 Ur Squamous Epith Cells NONE SEEN Urine Bacteria None Seen Ur Microscopic Review INDICATED Urine Culture Comments NOT INDICATED Urine Opiates Screen Ur Oxycodone Screen Urine Methadone Screen Ur Propoxyphene Screen Ur Barbiturates Screen Ur Tricyclics Screen Ur Phencyclidine Scrn Ur Amphetamine Screen U Methamphetamines Scrn U Benzodiazepines Scrn Urine Cocaine Screen U Cannabinoids Screen 05/11/20 11:39 WBC RBC Hgb Hct MCV MCH MCHC RDW Plt Count MPV Neut # (Auto) Lymph # (Auto) [place] # (Auto) Eos # (Auto) Baso # (Auto) Absolute Nucleated RBC Nucleated RBC % Sodium Potassium Chloride Carbon Dioxide Anion Gap BUN Creatinine Estimated GFR (MDRD) Glucose Calcium Total Bilirubin AST ALT Alkaline Phosphatase Total Protein Albumin Globulin Albumin/Globulin Ratio Lipase Urine Color Urine Clarity Urine pH Ur Specific [place] Urine Protein Urine Glucose (UA) Urine Ketones Urine Occult Blood Urine Nitrite Urine Bilirubin Urine Urobilinogen Ur Leukocyte Esterase Urine RBC Urine WBC Ur Squamous Epith Cells Urine Bacteria Ur Microscopic Review Urine Culture Comments Urine Opiates Screen NEGATIVE Ur Oxycodone Screen NEGATIVE Urine Methadone Screen NEGATIVE Ur Propoxyphene Screen NEGATIVE Ur Barbiturates Screen NEGATIVE Ur Tricyclics Screen NEGATIVE Ur Phencyclidine Scrn NEGATIVE Ur Amphetamine Screen NEGATIVE U Methamphetamines Scrn NEGATIVE U Benzodiazepines Scrn NEGATIVE Urine Cocaine Screen NEGATIVE U Cannabinoids Screen NEGATIVE PD MEDICAL DECISION MAKING - ED course Complexity details: reviewed old records, reviewed results, re-evaluated patient, considered differential, d/w patient ED course: 84 y/o male with dementia requires help at home and his caregiver is not available. His DPOA is contacted and she has been waiting for this to happen so that she can proceed with firing the caregiver. She has 2 additional caregivers ready to come and pick the patient up and she has making arrangements. Departure - Departure Disposition: 01 Home, Self Care Clinical Impression: Wandering behavior due to dementia Condition: Stable Instructions: ED Dementia Alzheimer Follow-Up: Ton Dahl MD [Physician No Access] -
[2020-05-11 10:34] LABS: BASOPHILS # (AUTO) 0.1 10^3/uL (0.0-0.1); BASOPHILS % (AUTO) 1.2 %; EOSINOPHILS # (AUTO) 0.2 10^3/uL (0.0-0.7); HGB - HEMOGLOBIN 13.5 g/dL (14.0-18.0); LYMPHOCYTES # (AUTO) 1.5 10^3/uL (1.5-3.5); MEAN CORPUSCULAR HEMOGLOBIN 29.9 pg (27.0-31.0); MEAN CORPUSCULAR HGB CONC 31.8 g/dL (32.0-36.0); MEAN CORPUSCULAR VOLUME 93.8 fL (80.0-94.0); MEAN PLATELET VOLUME 9.2 fL (7.4-11.4); MONOCYTES # (AUTO) 0.7 10^3/uL (0.0-1.0); MONOCYTES % (AUTO) 11.1 %; NEUTROPHILS # (AUTO) 3.5 10^3/uL (1.5-6.6); PLT - PLATELET COUNT 209 10^3/uL (130-450); RED BLOOD COUNT 4.52 10^6/uL (4.70-6.10); RED CELL DISTRIBUTION WIDTH 12.7 % (12.0-15.0)
[2020-05-11 10:47] LABS: ALBUMIN 3.7 g/dL (3.2-5.5); BILIRUBIN,TOTAL 0.6 mg/dL (0.2-1.0); CALCIUM 9.4 mg/dL (8.5-10.3); CREATININE 1.2 mg/dL (0.6-1.2); TOTAL PROTEIN 7.4 g/dL (6.7-8.2)
[2020-05-11 12:20] LABS: BILIRUBIN,URINE NEGATIVE (NEGATIVE); GLUCOSE, URINE (UA) NEGATIVE (NEGATIVE); KETONES,URINE (UA) NEGATIVE (NEGATIVE); LEUKOCYTE ESTERASE, URINE NEGATIVE (NEGATIVE); NITRITE,URINE NEGATIVE (NEGATIVE); OCCULT BLOOD,URINE SMALL (NEGATIVE); PH,URINE 5.5 PH (5.0-7.5); PROTEIN,URINE NEGATIVE (NEGATIVE); UROBILINOGEN,URINE 0.2 (NORMAL) E.U./dL (NORMAL)
[2020-05-11 12:21] LABS: CLARITY,URINE CLEAR (CLEAR)
[2020-05-11 12:32] LABS: BACTERIA,URINE None Seen /HPF (None Seen); RBC,URINE None Seen /HPF (0-5); SQUAMOUS EPITHELIAL CELL,UR NONE SEEN (<= Few)
[2020-05-11 13:10] LABS: MUDS CUTOFF CONCENTRATIONS CUTOFF CONC BELOW:
[2020-05-11 13:22] LABS: AMPHETAMINE SCREEN,URINE NEGATIVE (NEGATIVE); BENZODIAZEPINES SCREEN, URINE NEGATIVE (NEGATIVE); COCAINE SCREEN URINE NEGATIVE (NEGATIVE); METHADONE SCREEN, URINE NEGATIVE (NEGATIVE); METHAMPHETAMINES SCREEN, URINE NEGATIVE (NEGATIVE); OPIATE SCREEN, URINE NEGATIVE (NEGATIVE); OXYCODONE SCREEN, URINE NEGATIVE (NEGATIVE); PROPOXYPHENE SCREEN, URINE NEGATIVE (NEGATIVE); TRICYCLIC ANTIDEPRESSANT,URINE NEGATIVE (NEGATIVE)
[2020-05-11 17:55] VITALS: BP 136/96
== END 2020-05-11 18:05 | disposition home or self-care (01) ==
LOC: EDUNIT# → ED 10:07
DX: F03.91 Unspecified dementia, unspecified severity, with behavioral disturbance (principal); Z91.83 Wandering in diseases classified elsewhere; Z74.2 Need for assistance at home and no other household member able to render care
CPT/HCPCS: 36415; 80053; 80306; 81001; 81003; 83690; 85025; 87086; 99283